=== PATIENT | female | born 1975 | race Caucasian/White ===

== ENCOUNTER 2023-02-09 12:03 | Emergency (ER) | payer OTHER, SELFPAY ==
[2023-02-09 12:08] VITALS: BP 163/99; PULSE 80; RESP 16; TEMP 36.7; O2SAT 96; BMI 23.1
--- NOTE | 2023-02-09 12:17 | XR_ITS ---
The [address] [address] Patient Name: SHAMAR MINOR MRN: [id number] date: 1975 Sex: F Assigned Patient Location: ER Current Patient Location: ED.MAIN Accession/Order Number: [id number] Exam Date: 02/09/2023 12:25 Report Date: 02/09/2023 12:47 At the request of: DEV DOLL Procedure: XR hand RT 2V PROCEDURE: XR wrist RT min 3V, XR hand RT 2V HISTORY: fall, right hand first digit and right wrist pain since falling yesterday COMPARISON: None. FINDINGS: BONES:2 tiny ossifications at the lateral margin of the first digit interphalangeal joint. Mild sclerosis and subchondral cysts along the radial articular surface of the lunate. SOFT TISSUES:No visible soft tissue swelling. EFFUSION:None visible. OTHER: Negative. IMPRESSION: 1. Acute cortical avulsion fractures versus remote injury involving the first digit interphalangeal joint. No prior studies for comparison. 2. 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 Electronically authenticated by: LESLI POWELL Date: 02/09/2023 12:47
--- NOTE | 2023-02-09 12:18 | XR_ITS ---
The [address] [address] Patient Name: SHAMAR MINOR MRN: [id number] date: 1975 Sex: F Assigned Patient Location: ER Current Patient Location: ED.MAIN Accession/Order Number: [id number] Exam Date: 02/09/2023 12:25 Report Date: 02/09/2023 12:47 At the request of: DEV DOLL Procedure: XR wrist RT min 3V PROCEDURE: XR wrist RT min 3V, XR hand RT 2V HISTORY: fall, right hand first digit and right wrist pain since falling yesterday COMPARISON: None. FINDINGS: BONES:2 tiny ossifications at the lateral margin of the first digit interphalangeal joint. Mild sclerosis and subchondral cysts along the radial articular surface of the lunate. SOFT TISSUES:No visible soft tissue swelling. EFFUSION:None visible. OTHER: Negative. IMPRESSION: 1. Acute cortical avulsion fractures versus remote injury involving the first digit interphalangeal joint. No prior studies for comparison. 2. 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 Electronically authenticated by: LESLI POWELL Date: 02/09/2023 12:47
--- NOTE | 2023-02-09 12:21 | ED_ITS ---
HPI - Extremity Injury (Upper) General Chief Complaint: Extremity Injury, Upper Stated Complaint: INJURED R HAND AT WORK Time Seen by Provider: 02/09/23 12:17 Source: patient Mode of arrival: walk-in History of Present Illness HPI narrative: patient states she was at work yesterday stumbled and fell on outstretched right wrist. She is right-handed dominant. She's not had previous fracture. She did not hear or feel a bone break. She does nnot have any pain in her elbow or shoulder. She does not have any other injury to the trunk torso or extremities. Problem focused examination as noted below Related Data Home Medications Medication Instructions Recorded Confirmed cyclobenzaprine 10 mg tablet 10 mg PO DAILY PRN muscle spasm 02/09/23 02/09/23 fluoxetine 20 mg capsule 20 mg PO DAILY 02/09/23 02/09/23 levothyroxine 75 mcg tablet 75 mcg PO DAILY 02/09/23 02/09/23 (Synthroid) Allergies Allergy/AdvReac Type Severity Reaction Status Date / Time Sulfa (Sulfonamide Allergy Severe Verified 02/09/23 12:11 Antibiotics) [facility] Medical History (Updated 02/09/23 @ 13:28 by Kleber Phillips MD) Exam Narrative Exam Narrative: awake alert pleasant she is signing the documents with her right hand. There is some bruising over the volar aspect of her wrist. There is no obvious deformity of the bony structures. On extremity examination neurovascular examination extremity is normal. Mild restriction of motion at the wrist. Some discomfort over the dorsum of the hand but most discomfort is in the distal wrist joint area itself. X-rays of been ordered and are pending. Constitutional Vital Signs - 24 hr 02/09/23 12:08 Temperature 98.0 F Pulse Rate [Monitor] 80 Respiratory Rate 16 Blood Pressure [Right Arm] 163/99 H Pulse Oximetry 96 Oxygen Delivery Method Room Air Course Vital Signs Vital signs: Vital Signs Temperature 98.0 F 02/09/23 12:08 Pulse Rate 80 02/09/23 12:08 Respiratory Rate 16 02/09/23 12:08 Blood Pressure 163/99 H 02/09/23 12:08 Pulse Oximetry 96 02/09/23 12:08 Oxygen Delivery Method Room Air 02/09/23 12:08 Temperature 98.0 F 02/09/23 12:08 Pulse Rate 80 02/09/23 12:08 Respiratory Rate 16 02/09/23 12:08 Blood Pressure 163/99 H 02/09/23 12:08 Pulse Oximetry 96 02/09/23 12:08 Oxygen Delivery Method Room Air 02/09/23 12:08 MDM - Extremity Injury (Upper) MDM Narrative Medical decision making narrative: issues x-rays suggest an old versus new fracture at the IP joint of her right thumb. I reexamined the patient she has full range of motion at that joint and no tenderness whatsoever with aggressive palpation and manipulation so I believe this is old. Discharge Plan Discharge Chief Complaint: Extremity Injury, Upper Clinical Impression: Other specified sprain of right wrist, initial encounter Patient Disposition: Home, Self-Care Time of Disposition Decision: 13:28 Prescriptions / Home Meds: No Action fluoxetine 20 mg capsule 20 mg PO DAILY levothyroxine [Synthroid] 75 mcg tablet 75 mcg PO DAILY cyclobenzaprine 10 mg tablet 10 mg PO DAILY PRN (Reason: muscle spasm) Additional Instructions: wears splint three or four days, ice for forty-eight hours/NSAIDs for discomfort Stand Alone Forms: Portal Instructions Referrals: NOLBERTO PERRY DO [Primary Care Provider] - 1 week
[2023-02-09 13:47] VITALS: BP 152/96; PULSE 72; RESP 18; O2SAT 98
== END 2023-02-09 13:49 | disposition home or self-care (01) ==
PROVIDERS: Emergency Provider Emergency Medicine Emergency Medical Services; PCP Family Medicine
DX: S63.501A Unspecified sprain of right wrist, initial encounter (principal); W01.10XA Fall on same level from slipping, tripping and stumbling with subsequent striking against unspecified object, initial encounter
CPT/HCPCS: 73110; 73120; 99283

== ENCOUNTER 2023-06-08 09:31 | Outpatient (OUT) | payer OTHER, SELFPAY ==
--- NOTE | 2023-06-08 09:39 | MM_ITS ---
Patient: SHAMAR MINOR Exam Date: 06/08/2023 : 1975 Gender:F Ordering : DR NOLBERTO BEAR M.D. Admission #: [id number] Family : Order #: [id number] CLICK HERE TO VIEW EXAM RADIOLOGY REPORT PROCEDURE: MM TOMOSYNTHESIS SCREENING BI COMPARISON: MG MAMM SCREEN 3D [place] CAD, 10/31/2020. MG MAMM SCREEN 3D [place] CAD, 11/23/2021. INDICATIONS: Screening Calculator Name NCI Breast Cancer Risk Assessment Tool 5 Year Breast Cancer Risk 1.10% Lifetime Breast Cancer Risk 9.90% Personal Breast Cancer No Personal Ovarian Cancer No Treatments Excision Interferon for year. Family Cancers Mother with skin cancer cancer at age 55; Uncle-maternal with liver cancer at age 65; Grandfather-maternal with lung cancer at age ~50; Uncle-maternal with unknown cancer at age 55. LOCATION: [facility] BREAST COMPOSITION: Scattered areas fibroglandular density. FINDINGS: DIAGNOSTIC CATEGORY 1--NEGATIVE. NO CHANGE FROM COMPARISON ASSESSMENT. Scattered benign-appearing nodules are present. Scattered benign-appearing calcifications are present. Scattered benign-appearing lymph nodes are present. RIGHT BREAST: No significant suspicious finding. LEFT BREAST: No significant suspicious finding. RECOMMENDATIONS: ROUTINE MAMMOGRAM AND CLINICAL EVALUATION IN 12 MONTHS. PLEASE NOTE: A NORMAL MAMMOGRAM DOES NOT EXCLUDE THE POSSIBILITY OF BREAST CANCER. A CLINICALLY SUSPICIOUS PALPABLE LUMP SHOULD BE BIOPSIED. Dictated by: Luis Armijo MD on 06/08/2023 at 13:21 Approved by: Luis Armijo MD on 06/08/2023 at 13:24
== END 2023-06-08 09:32 | disposition home or self-care (01) ==
LOC: MAMMO 09:31
PROVIDERS: PCP Internal Medicine; Visit Provider Internal Medicine
DX: Z12.31 Encounter for screening mammogram for malignant neoplasm of breast (principal); Z80.1 Family history of malignant neoplasm of trachea, bronchus and lung; Z80.8 Family history of malignant neoplasm of other organs or systems; Z80.9 Family history of malignant neoplasm, unspecified
CPT/HCPCS: 77063; 77067

== ENCOUNTER 2023-11-30 08:33 | Outpatient (OUT) | payer OTHER, SELFPAY ==
--- OUTSIDE RECORDS SUMMARY | 2023-11-30 08:48 | XMS_ITS | CCD ---
Author Organization [facility] Care Team Providers Care Glass Vial Bending Conveyor Feeder Name Role Phone Maximiliano Hernandez II Primary Care Provider [facility], DR KNIGHT Attending Unavailable MISC, DR KNIGHT Admitting Unavailable REQUEST, DR BOGGS LISTED Primary Care Unavaila ble REQUEST, DR BOGGS LISTED Primary Care Unavaila ble HERNANDEZ, DR ARVIZU Attending Unavailable HERNANDEZ, DR ARVIZU Consulting Unavailable CHEMA, DR ARVIZU Admitting Unavailable ZIEBER, DR LESLI Marina Consulting Unavailable CHAYO, DR Yulisa Morales Primary Care Unavailable MARICARMEN KENNEDY Attending Unavailable MARICARMEN KENNEDY Admitting Unavailable CAITIE, DR ANAM Carcamo Consulting Unavailable MARICARMEN KENNEDY Consulting Unavailable KOLCZUN, DR BHARDWAJ Attending Unavailable LM, DR BHARDWAJ Admitting Unavailable REQUEST, DR BOGGS LISTED Primary Care UnavailMaximiliano Rod II Primary Care Provider [phone] Maximiliano Hernandez II Primary Care Provider [phone] MAXIMILIANO HERNANDEZ II Primary Care Unavailable ANTON TARIQ Attending Unavailable BENTON AMATO Attending Unavailable MAXIMILIANO HERNANDEZ II Primary Care Unavailable BENTON AMATO Referring Unavailable MAXIMILIANO HERNANDEZ II Primary Care Unavailable MAXIMILIANO HERNANDEZ II Primary Care Unavailable BENTON AMATO Referring Unavailable MAXIMILIANO HERNANDEZ II Primary Care Unavailable BENTON AMATO Attending Unavailable Maximiliano Gonsales Primary Care Provider [phone] MIR STOUT Attending Unavailable MIR STOUT Attending Unavailable Maximiliano Hernandez MD Primary Care Provider [phone] MAUREEN CAMPOS Attending MAXIMILIANO Lazo Referring Unavailable MAXIMILIANO HERNANDEZ Primary Care Unavailable Allergies Allergy Classification Reported Allergen(s) Allergy Type Date of Onset Reaction(s) Facility (7 sources) Bee pollen; Translations: [BEE POLLEN] Drug Allergy 1 Swelling [facility] (7 sources) oxyCODONE; Translations: [OXYCODONE] Drug Allergy 2 Itching [facility] Work Phone: (8 sources) Sulfonamides (Antibiotic); Translations: [SULFA (SULFONAMIDE ANTIBIOTICS)] Drug Allergy 2 Hives [facility] (6 sources) Silver; Translations: [SILVER] Drug Allergy 1 Other: See Comments [facility] (1 source) Sulfonamides (Antibiotic) Drug allergy (disorder) 6 [facility] (1 source) Silver Drug Allergy 1 Other: See Comments [facility] (1 source) Sulfacetamide Drug Allergy 3 Rash [facility] Medications Current Medications Medication Drug Class(es) Dates Sig (Normalized) Sig (Original) cyclobenzaprine hydrochloride 5 mg oral tablet (7 sources) Muscle Relaxant Start: 03-02-2023 take 2 tablets by mouth three times daily as needed for muscle spasms, then take 1-2 tablets by mouth once as needed for muscle spasms cyclobenzaprine (Flexeril) 5 MG tablet Indications: Muscle spasm of back Take 2 tablets (10 mg) by mouth 3 (three) times a day as needed for muscle spasms. Take 1 to 2 tablets per dose 120 tablet 2 03/02/2023 Active cyclobenzaprine (FLEXERIL) 5 mg tablet Take 5 mg by mouth as needed. 0 Active Comment on above: Take 5 mg by mouth a s needed. [id number] 0.3 ml EPINEPHrine 1 mg/ml auto-injector (1 source) alpha-Adrenergic Agonist, beta-Adrenergic Agonist, Catecholamine EPINEPHrine (Epipen) 0.3 MG/0.3ML injection syringe Inject 1 Syringe as directed 1 (one) time. 0 Active FLUoxetine 20 mg oral capsule (7 sources) Serotonin Reuptake Inhibitor Start: 023 take 1 capsule by mouth in the morning FLUoxetine (PROzac) 20 MG capsule Indications: Major depressive disorder with single episode, in full remission (CMS/HCC) Take 1 capsule (20 mg) by mouth in the morning. 100 capsule 3 03/02/2023 Active Comment on above: Take 20 mg by mouth once daily. ibuprofen 600 mg oral tablet (1 source) Nonsteroidal Anti-inflammatory Drug take 1 tablet by mouth in the morning, then take 1 tablet by mouth in the evening, then take 1 tablet by mouth at bedtime ibuprofen 600 MG tablet Take 600 mg by mouth in the morning and 600 mg in the evening and 600 mg before bedtime. 0 Active levothyroxine sodium 0.075 mg oral tablet (7 sources) l-Thyroxine Start: 023 take 1 tablet by mouth before mealtime levothyroxine (Synthroid, Levoxyl) 75 MCG tablet Indications: Acquired hypothyroidism (CMS/HCC) Take 1 tablet (75 mcg) by mouth in the morning. Take before meals. 100 tablet 3 03/02/2023 Active Start: 04-09-2022 SYNTHROID 75 m cg tablet End: 04-19-2022 levothyroxine (SYNTHROID) 10 0 mcg tablet Take 75 mcg by mouth daily before breakfast. 0 04/19/2022 Discontinued Comment on above: Take 75 mcg by mouth daily before breakfast. Completed/Discontinued Medications Medication Drug Class(es) Dates Sig (Normalized) Sig (Original) amoxicillin 500 mg oral capsule (3 sources) Penicillin-class Antibacterial Start: 01-18-2022 amoxicillin (POLYMOX, AMOXIL) 500 mg capsule Indications: S/P right unicompartmental knee replacement Take 4 capsules 1 hour before procedure and 2 capsules 6 hours after procedure 6 capsule 1 01/18/2022 Active Comment on above: Take 4 capsules 1 ho ur before procedure and 2 capsules 6 hours after procedure aspirin 81 mg delayed release oral tablet (2 sources) Platelet Aggregation Inhibitor, Nonsteroidal Anti-inflammatory Drug Start: 09-21-2021 End: 12-28-2021 take 1 tablet by mouth twice daily aspirin, enteric coated (ECOTRIN LOW STRENGTH) 81 mg EC tablet Indications: blood clot prevention Take 1 tablet by mouth twice daily for 28 days. 56 tablet 0 09/21/2021 12/28/2021 Discontinued Comment on above: Take 1 tablet by paula twice daily for 28 days. Calcium (5 sources) Phosphate Binder, Calcium CALCIUM ORAL Take by mouth. 2 times a week. 0 Active Comment on above: Take by mouth. 2 mayco es a week. Calcium Carbonate (6 sources) calcium carbonat e (TUMS ORAL) Take by mouth. 0 Active Comment on above: Take by mouth. feusrjiwrnk-U5-uo aluronic acid 1,000 mg- 25 mcg-1.65 mg tab (5 sources) take 1 tablet by mouth once daily pdgskxmmvvs-P8-mkdoug onic acid 1,000 mg- 25 mcg-1.65 mg tab Take 1 tablet by mouth once daily. 0 Active Comment on above: Take 1 tablet by paula th once daily. MULTI-VITAMIN ORAL (6 sources) MULTI-VITAMIN OR AL Take by mouth. 0 Active Comment on above: Take by mouth. omeprazole 20 mg delayed release oral capsule (6 sources) Proton Pump Inhibitor Start: 12-19-2013 OMEPRAZOLE 20 mg capsule Take 20 mg by mouth as needed. 0 12/19/2013 Active Comment on above: Take 20 mg by mouth as needed. 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, unilateral] Onset: 1 07-27-2021 Chronic Melanomas of skin (6 sources) Malignant melanoma; Translations: [Malignant melanoma of skin, unspecified] Onset: 2 03-29-2012 Chronic Menopausal disorders (1 source) Menopausal syndrome; Translations: [Menopausal and female climacteric states] Onset: 3 02-07-2023 Chronic Mood disorders (1 source) Depressive disorder; Translations: [Depression] Onset: 3 02-07-2023 Chronic Osteoarthritis (17 sources) Degenerative joint disease involving multiple joints; Translations: [Secondary multiple arthritis] Onset: 1 04-02-2021 Chronic Other connective tissue disease (3 sources) Presence of right artificial knee joint; Translations: [PRESENCE RT ARTIFICIAL KNEE JOINT] Onset: 2 Chronic Other connective tissue disease (1 source) History of prosthetic unicompartmental arthroplasty of right knee; Translations: [Presence of right artificial knee joint] Onset: 2 10-14-2021 Chronic Other connective tissue disease (7 sources) Pain of bilateral hands; Translations: [Pain in right hand] Onset: 1 04-02-2021 Episodic Other gastrointestinal disorders (1 source) Other fecal abnormalities; Translations: [Other fecal abnormalities] Onset: 4 Episodic Other nervous system disorders (1 source) Chronic pain; Translations: [Other chronic pain] Onset: 3 02-07-2023 Chronic Other non-traumatic joint disorders (7 sources) Pain in right knee; Translations: [Pain in joint, lower leg] Onset: 1 04-02-2021 Episodic Residual codes; unclassified (1 source) Family history of malignant neoplasm of trachea, bronchus and lung; Translations: [FAM HX MALIG NEOPLSM TRACH BRON LNG] Onset: 2 Episodic Residual codes; unclassified (1 source) Family history of malignant neoplasm of other organs or systems; Translations: [FAM HX MALIG NEOPLASM OTH ORGN/SYS] Onset: 2 Episodic Residual codes; unclassified (1 source) Family history of malignant neoplasm, unspecified; Translations: [FAM HX MALIGNANT NEOPLASM UNS] Onset: 2 Episodic Retinal detachments; defects; vascular occlusion; and retinopathy (1 source) Nonexudative age-related macular degeneration; Translations: [Nonexudative age-related macular degeneration, bilateral, intermediate dry stage] Onset: 3 02-07-2023 Chronic Spondylosis; intervertebral disc disorders; other back problems (2 sources) Degeneration of cervical intervertebral disc; Translations: [Other cervical disc degeneration, unspecified cervical region] Onset: 3 02-07-2023 Chronic Thyroid disorders (7 sources) Hypothyroidism; Translations: [Hypothyroidism, unspecified] Onset: 2 03-29-2012 Chronic Unclassified (1 source) Colon Cancer Screening Onset: 4 Past or Other Problems Problem Classification Problem Date Documented Date Episodic/Chronic Immunizations and screening for infectious disease (5 sources) Anti-nuclear factor positive; Translations: [Other specified abnormal immunological findings in serum] Onset: 04-05-2021 04-05-2021 Episodic Joint disorders and dislocations; trauma-related (1 source) Tear of meniscus of knee; Translations: [Unspecified tear of unspecified meniscus, current injury, right knee, subsequent encounter] Onset: 02-07-2023 02-07-2023 Episodic Other bone disease and musculoskeletal deformities (1 source) Chondromalacia; Translations: [Chondromalacia, right knee] Onset: 02-07-2023 02-07-2023 Episodic Other connective tissue disease (6 sources) Swollen thumb; Translations: [Other specified soft tissue disorders] Onset: 04-02-2021 04-02-2021 Episodic Other connective tissue disease (1 source) Synovial cyst of popliteal space [Sidhu], right knee; Translations: [SYNOVIAL CYST POP SPACE RIGHT KNEE] Onset: 03-31-2021 Episodic Other infections; including parasitic (5 sources) Patient condition resolved; Translations: [Resolved utqm-[id number]-63 syndrome] Onset: 07-27-2021 07-27-2021 Episodic Other non-traumatic joint disorders (6 sources) Hip pain; Translations: [Pain in left hip] Onset: 04-02-2021 10-15-2021 Episodic Other non-traumatic joint disorders (6 sources) Swelling of knee joint; Translations: [Effusion, right knee] Onset: 04-02-2021 04-02-2021 Episodic Other non-traumatic joint disorders (4 sources) Effusion, right knee; Translations: [EFFUSION RIGHT KNEE] Onset: 03-20-2021 Episodic Other screening for suspected conditions (not mental disorders or infectious disease) (10 sources) Mammography abnormal; Translations: [Other abnormal and inconclusive findings on diagnostic imaging of breast] Onset: 11-25-2015 11-25-2015 Episodic Residual codes; unclassified (6 sources) FH: Gout; Translations: [Family history of other diseases of the musculoskeletal system and connective tissue] Onset: 04-02-2021 04-02-2021 Episodic Spondylosis; intervertebral disc disorders; other back problems (6 sources) Chronic low back pain; Translations: [Chronic bilateral low back pain without sciatica] Onset: 04-02-2021 04-02-2021 Episodic Results Test Name Value Interpretation Reference Range Facility [facility] 01-17-2023 [facility] Office Visit (LOORRM ) TIA FLANAGAN ([id number]) 1975 F Date Time Provider Department 01/17/23 8:15 AM BENTON AMATO During your visit today, we recorded the following information about you: Benton Amato II, MD 01/17/2023 12:26 PM Signed see dictated note Benton Amato II, MD Referring Provider: SELF [200] Allergies As of Date: 01/17/2023 Noted Allergy Reaction BEE POLLEN 07/06/2021 7 - Swelling OXYCODONE 09/21/2021 9 - Itching Comments: ok if used with benadryl norco ok SILVER 07/06/2021 14 - Other: See Comments Comments: Jorge. Redness in ears. SULFA DRUGS (SULFA (SULFONAMIDE A*03/29/2012 4 - Hives Date Reviewed: 01/17/2023 Reviewed by: Yandy Cage MA - Fully Assessed Reason for Visit: Established Patient [175] Follow Up [171] Knee Replacement [363] Primary Visit Diagnosis:Status post right unicompartmental knee replacement [Z96.651] Order(s):XR KNEE POST OP 3V AP/LAT/ RIGHT [[id number]] Order #: [id number] FUTURE Prescriptions as of 01/17/2023 - amoxicillin (AMOXIL) 500 mg capsule Take 4 capsules 1 hour before procedure and 2 capsules 6 hours after procedure - SYNTHROID 75 mcg tablet - CALCIUM ORAL Take by mouth. 2 times a week. - nrynfdmspyl-H4-ajefftah ic acid 1,000 mg- 25 mcg-1.65 mg tab Take 1 tablet by mouth once daily. - cyclobenzaprine (FLEXERIL) 5 mg tablet Take 5 mg by mouth as needed. - calcium carbonate (TUMS ORAL) Take by mouth. - OMEPRAZOLE 20 mg capsule Take 20 mg by mouth as needed. - FLUoxetine (PROZAC) 20 mg capsule Take 20 mg by mouth once daily. - MULTI-VITAMIN ORAL Take by mouth. Problem List As Of Date 01/17/2023 Noted Resolved Melanoma [C43.9] 03/29/2012 Hypothyroidism [E03.9] 03/29/2012 Abnormal mammogram of right breast [R92.8] 11/25/2015 Chronic bilateral low back pain without sciatic*04/02/2021 Pain in left hip [M25.552] 04/02/2021 Swelling of knee joint, right [M25.461] 04/02/2021 Swelling of thumb, left [M79.89] 04/02/2021 Secondary osteoarthritis of multiple sites [M15*04/02/2021 Chronic pain of both knees [M25.561, M25.562, G*04/02/2021 Bilateral hand pain [M79.641, M79.642] 04/02/2021 Family history of gout [Z82.69] 04/02/2021 ELIZABETH positive [R76.8] 04/05/2021 Primary osteoarthritis of right knee [M17.11] 07/27/2021 Resolved akme-MIGYR-35 syndrome [Z86.16] 07/27/2021 Solitary kidney, congenital [Q60.0] 07/27/2021 GERD (gastroesophageal reflux disease) [K21.9] 07/27/2021 S/P right unicompartmental knee replacement [Z9*10/14/2021 Encounter Status:Closed by BENTON AMATO II on 01/17/23 Normal [facility] XR KNEE 3V AP/LAT/MERCHANT R Ton 01-17-2023 XR KNEE 3V AP/LAT/MERCHANT RT * * *Final Report* * * DATE OF EXAM: Jan 17 2023 8:36AM LZX 5209 - XR KNEE 3V AP/LAT/MERCHANT RT / PROCEDURE REASON: Status post right unicompartmental knee replacement * * * * Physician Interpretation * * * * HISTORY (as given from clinical provider): Status post right unicompartmental knee replacement . Additional history provided by the performing technologist (if any): Post op follow up TECHNIQUE: XR KNEE 3V AP/LAT/MERCHANT RT COMPARISON: 10/18/2022 RESULT: Status post lateral unicondylar knee arthroplasty. Normal postoperative appearance. Relative valgus alignment with wide medial compartment measuring about 15 mm in width, similar to the prior study. Mild patellofemoral compartment osteoarthritis. No other significant abnormality. IMPRESSION: NO SIGNIFICANT CHANGE Certified Substance Abuse Counselor: DEVON Transcribe Date/Time: Jan 17 2023 9:48A Dictated by : KARLA PURI MD This examination was interpreted and the report reviewed and electronically signed by: KARLA PURI MD on Jan 17 2023 9:49AM EST [id number] Normal [facility] CNOVon 10-18-2022 CNOV Office Visit (LOORRM ) TIA FLANAGAN ([id number]) 1975 F Date Time Provider Department 10/18/22 9:45 AM BENTON AMATO During your visit today, we recorded the following information about you: Benton Amato II, MD 10/18/2022 12:17 PM Signed see dictated note Benton Amato II, MD Referring Provider: SELF [200] Allergies As of Date: 10/18/2022 Noted Allergy Reaction BEE POLLEN 07/06/2021 7 - Swelling OXYCODONE 09/21/2021 9 - Itching Comments: ok if used with benadryl norco ok SILVER 07/06/2021 14 - Other: See Comments Comments: Jorge. Redness in ears. SULFA DRUGS (SULFA (SULFONAMIDE A*03/29/2012 4 - Hives Date Reviewed: 10/18/2022 Reviewed by: Benton Amato MD - Fully Assessed Reason for Visit: Established Patient [175] Follow Up [171] Knee Replacement [363] Primary Visit Diagnosis:S/P right unicompartmental knee replacement [Z96.651] Order(s):XR KNEE POST OP 3V AP/LAT/MERCHANT RIGHT [[id number]] Order #: [id number] FUTURE HINGED KNEE BRACE [[id number]] Order #: [id number] Prescriptions as of 10/18/2022 - SYNTHROID 75 mcg tablet - amoxicillin (POLYMOX, AMOXIL) 500 mg capsule Take 4 capsules 1 hour before procedure and 2 capsules 6 hours after procedure - CALCIUM ORAL Take by mouth. 2 times a week. - iicerfftbxr-H3-gljucafs ic acid 1,000 mg- 25 mcg-1.65 mg tab Take 1 tablet by mouth once daily. - cyclobenzaprine (FLEXERIL) 5 mg tablet Take 5 mg by mouth as needed. - calcium carbonate (TUMS ORAL) Take by mouth. - OMEPRAZOLE 20 mg capsule Take 20 mg by mouth as needed. - FLUoxetine (PROZAC) 20 mg capsule Take 20 mg by mouth once daily. - MULTI-VITAMIN ORAL Take by mouth. Problem List As Of Date 10/18/2022 Noted Resolved Melanoma [C43.9] 03/29/2012 Hypothyroidism [E03.9] 03/29/2012 Abnormal mammogram of right breast [R92.8] 11/25/2015 Chronic bilateral low back pain without sciatic*04/02/2021 Pain in left hip [M25.552] 04/02/2021 Swelling of knee joint, right [M25.461] 04/02/2021 Swelling of thumb, left [M79.89] 04/02/2021 Secondary osteoarthritis of multiple sites [M15*04/02/2021 Chronic pain of both knees [M25.561, M25.562, G*04/02/2021 Bilateral hand pain [M79.641, M79.642] 04/02/2021 Family history of gout [Z82.69] 04/02/2021 ELIZABETH positive [R76.8] 04/05/2021 Primary osteoarthritis of right knee [M17.11] 07/27/2021 Resolved vsvv-VSOIV-58 syndrome [Z86.16] 07/27/2021 Solitary kidney, congenital [Q60.0] 07/27/2021 GERD (gastroesophageal reflux disease) [K21.9] 07/27/2021 S/P right unicompartmental knee replacement [Z9*10/14/2021 Encounter Status:Closed by BENTON AMATO II on 10/18/22 [facility] XR KNEE 3V AP/LAT/MERCHANT R Ton 10-18-2022 XR KNEE 3V AP/LAT/MERCHANT RT * * *Final Report* * * DATE OF EXAM: Oct 18 2022 9:49AM LZX 5209 - XR KNEE 3V AP/LAT/MERCHANT RT / PROCEDURE REASON: S/P right unicompartmental knee replacement * * * * Physician Interpretation * * * * EXAMINATION: XR KNEE 3V AP/LAT/MERCHANT RT PATIENT/TECHNOLOGIST PROVIDED HISTORY: rt knee pain post op, walking with limp CLINICAL INFORMATION ( PROVIDED BY ORDERING CLINICIAN) : S/P right unicompartmental knee replacement TECHNIQUE: XR KNEE 3V AP/LAT/MERCHANT RT Laterality: RIGHT Number of different views (projections): 3 M: XB_1 COMPARISON: 10/14/2021 RESULT: Lateral compartment unicondylar arthroplasty is again noted without periprosthetic lucency or discrete periprosthetic fracture. Interval development of subsidence of the tibial component measuring 5 to 6 mm on the lateral projection. There is also increased genu valgum. Remaining joint spaces are preserved. Small joint effusion. Slightly decreased soft tissue swelling about the right knee. IMPRESSION: Lateral compartment unicondylar arthroplasty of the right knee with interval development of subsidence of the tibial component and increased genu valgum. Certified Substance Abuse Counselor: DEVON Transcribe Date/Time: Oct 18 2022 11:05A Dictated by : ANA BALES MD This examination was interpreted and the report reviewed and electronically signed by: ANA BALES MD on Oct 18 2022 11:10AM EST [id number] Normal [facility] CNOVon 04-19-2022 CNOV Office Visit (LOORRM ) TIA FLANAGAN ([id number]) 1975 F Date Time Provider Department 04/19/22 8:45 AM ANTON TARIQORREdilson During your visit today, we recorded the following information about you: Anton Tariq PA-C 04/19/2022 8:58 AM Signed This document has been created with the use of voice recognition technology. It may contain inaccuracies such as misspellings, inaccurate syntax or word sense that escaped review. Chief complaint: Recheck of right knee Right partial lateral isabell 09/21/2021 (7 months) HISTORY: Tia is a 46 year old female. Patient comes in today for follow up of her right knee. She reports that overall she is doing well. Just gets achiness and soreness intermittently if she sits for any length of time. She is up and down at work all the time which helps but she gets achy by the end of the day. Will take occasional ibuprofen.. She states pain is well controlled with ibuprofen. She reports that she was exercising at the pool regularly but once the warm weather hit she stopped going. She does sit in a hot tub on occasion to help loosen up the knee. Pain level 0-4/10. No other musculoskeletal complaints PAST MEDICAL HISTORY Diagnosis Date Hypothyroidism Melanoma (HCC) [id number] PAST SURGICAL HISTORY Procedure Laterality Date ARTHROSCOPY KNEE DIAGNOSTIC W/WO SYNOVIAL BX SPX Right COLONOSCOPY GEN ANES EXTENSIVE LEG SURGERY Right Melanoma removed from right leg and lymph nodes TOTAL ABDOM HYSTERECTOMY 2019 Medications reviewed. ALLERGIES Allergen Reactions Bee Pollen Swelling Oxycodone Itching ok if used with benadryl norco ok Silver Other: See Comments Jorge. Redness in ears. Sulfa Drugs [Sulfa * Hives Social History Tobacco Use Smoking status: Former Types: Cigarettes Quit date: 2016 Years since quittin.7 Smokeless tobacco: Never Tobacco comments: .5 ppd since age 14 Substance Use Topics Alcohol use: Not Currently Drug use: No EXAMINATION: GENERAL: Appears healthy, well-nourished, no deformities. ORIENTATION: Alert and oriented to person place and time HABITUS: Normal GAIT: Ambulating with a normal gait On physical exam of the right knee today, Appearance: No warmth or redness, wound is healing satisfactorily with no sign of infection. Calf is soft and nontender. Negative Homans. Tenderness: None Swelling: No swelling of the knee itself, no swelling distally Range of motion: 0-135 degrees easily, with just tightness at extremes Still has fairly significant quadriceps deconditioning on the right compared to the left. Can arise from a chair without using her arms. RADIOGRAPHS: None needed today IMPRESSION: Encounter Diagnosis ICD-10-CM 1. 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 Tolerating her activities fairly well. However she still has a great deal of deconditioning. We discussed appropriate strengthening exercises and handout was given. She will continue these on a regular basis. Limitations were discussed. Discussed kneeling. Follow-up in September for annual recheck. Anton Tariq PA-C April 19, 2022 8:34 AM Anton Tariq PA-C 04/19/2022 8:51 AM Signed Exercises to be done twice a day: -Straight leg raises: Lay on your back and left your leg while keeping your knee straight. Do 3 sets of 10 -Chair squats: Sit with your feet shoulder width apart and arise from the chair pushing off only as much as you need to to avoid pain. Do 3 sets of 10 - Slow march balance exercises: Stand and bend your knee and lift 1 leg in a marching motion and hold for 5 to 10 seconds, holding on only as much as you need to to keep balance. Switch back and forth between legs 20 times. Referring Provider: SELF [200] Allergies As of Date: 04/19/2022 Noted Allergy Reaction BEE POLLEN 07/06/2021 7 - Swelling OXYCODONE 09/21/2021 9 - Itching Comments: ok if used with benadryl norco ok SILVER 07/06/2021 14 - Other: See Comments Comments: Jorge. Redness in ears. SULFA DRUGS (SULFA (SULFONAMIDE A*03/29/2012 4 - Hives Date Reviewed: 04/19/2022 Reviewed by: Connie Lim MA - Fully Assessed Reason for Visit: Follow Up [171] Primary Visit Diagnosis:S/P right unicompartmental knee replacement [Z96.651] Prescriptions as of 04/19/2022 - SYNTHROID 75 mcg tablet - amoxicillin (POLYMOX, AMOXIL) 500 mg capsule Take 4 capsules 1 hour before procedure and 2 capsules 6 hours after procedure - CALCIUM ORAL Take by mouth. 2 times a week. - qtslrggwdny-H8-fcreonfb ic acid 1,000 mg- 25 mcg-1.65 mg tab Take 1 tablet by mouth once daily. - cyclobenzaprine (FLEXERIL) 5 mg tablet Take 5 mg by mouth as needed. - calcium carbonate (TUMS ORAL) Take by mouth. - OMEPRAZOLE 20 mg capsule Take 20 mg by mouth as needed. - FLUoxetine (PROZAC) 20 mg capsule Take 20 mg by mouth once da (more content not included)... 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 Admission #: [id number] Family : Order #: [id number] CLICK HERE TO VIEW EXAM RADIOLOGY REPORT PROCEDURE: MAMMOGRAM SCREENING 3D BILATERAL CAD COMPARISON: MG MAMM SCREEN 3D RITCHIE CAD, 10/31/2020. MG MAMM SCREEN RITCHIE W CAD, 08/21/2019. INDICATIONS: Screening mammography Calculator Name NCI Breast Cancer Risk Assessment Tool 5 Year Breast Cancer Risk 1.00% Lifetime Breast Cancer Risk 10.20% Personal Breast Cancer No Personal Ovarian Cancer No Treatments Excision Interferon for year. Family Cancers Mother with skin cancer cancer at age 55; Uncle-maternal with liver cancer at age 65; Grandfather-maternal with lung cancer at age 50; Uncle-maternal with unknown cancer at age 55. LOCATION: [facility] BREAST COMPOSITION: Scattered areas fibroglandular density. FINDINGS: DIAGNOSTIC CATEGORY 1--NEGATIVE. RIGHT BREAST: No significant suspicious finding. No significant change has occurred. LEFT BREAST: No significant suspicious finding. No significant change has occurred. RECOMMENDATIONS: ROUTINE MAMMOGRAM AND CLINICAL EVALUATION IN 12 MONTHS. PLEASE NOTE: A NORMAL MAMMOGRAM DOES NOT EXCLUDE THE POSSIBILITY OF BREAST CANCER. A CLINICALLY SUSPICIOUS PALPABLE LUMP SHOULD BE BIOPSIED. Dictated by: Lesli Baker M.D. on 11/23/2021 at 13:29 Approved by: Lesli Baker M.D. on 11/23/2021 at 13:34 Normal [facility] ANES POSTPROC EVALon 022 ANES POSTPROC EVAL HNO ID: [id number] Author: Monica Keller MD Service: Anesthesiology Author Type: Physician Type: Anesthesia Postprocedure Evaluation Filed: 09/21/2021 12:56 PM Note Text: POST ANESTHESIA EVALUATION NOTE : 1975 Procedure Summary Date: 09/21/21 Room / Location: OR03 / AV OR Anesthesia Start: 949 Anesthesia Stop: 1218 Procedure: ARTHROPLASTY REPLACE JOINT TOTAL KNEE UNI (Right Knee) Diagnosis: Primary osteoarthritis of right knee Surgeons: Benton Amato MD Responsible Provider: Monica Keller MD Anesthesia Type: spinal, regional ASA Status: 2 Anesthesia Type: spinal, regional Last Vitals Vitals Value Taken Time BP 114/85 09/21/21 1250 Temp 36.6 ?C (97.8 ?F) 09/21/21 1220 Pulse 67 09/21/21 1255 Resp 14 09/21/21 1255 SpO2 96 % 09/21/21 1255 Vitals shown include unvalidated device data. Post Anesthesia Patient Status Patient Evaluation: PACU. PACU/ICU Patient Condition: stable. Anticipated Disposition: phase 2 then home. Neurological Status: aware and responsive. Pulmonary Status: breathing comfortably on room air Airway Control: returned to baseline unsupported. Cardiovascular Status: stable. Pain Management: clinically adequate - multimodal analgesia pain management approach Postoperative Hydration: acceptable. Intraoperative Events: no significant anesthesia events Recommendation: continue current plan of care. Anesthesia Observations No Documentation SIGNATURE: Monica Keller MD PATIENT NAME: Tia Flanagan DATE: September 21, 2021 TIME: 12:56 PM CSN: [id number] [facility] ANES PRE-OPon 09-21-2021 ANES PRE-OP HNO ID: [id number] Author: Monica Keller MD Service: Anesthesiology Author Type: Physician Type: Anesthesia Preprocedure Evaluation Filed: 09/21/2021 9:26 AM Note Text: ANESTHESIOLOGY DAY OF SURGERY NOTE : 1975 Procedure Information Date/Time: 09/21/21934 Procedure: ARTHROPLASTY REPLACE JOINT TOTAL KNEE UNI (Right Knee) Location: AV OR03 / AV OR Surgeons: Benton Amato MD Estimated body mass index is 24.86 kg/m? as calculated from the following: Height as of this encounter: 167.6 cm (5' 6 ). Weight as of this encounter: 69.9 kg (154 lb). 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 Mallampati: II. TM distance: >3 FB. Neck ROM: full ROM without neurological symptoms. Mouth opening: adequate. Short neck: no. Thick neck: no DENTAL Normal dental observations. Dental findings: teeth intact. II - ANESTHESIA PLAN ASA Score: 2 Anesthetic Plan: spinal and regional Anesthetic plan additional comments: (pre op adductor canal block) + MAC Sedation. NPO Status: adequate Monitoring plan: Standard ASA. Postoperative analgesic plan: parenteral or oral opioids, multimodal analgesia and peripheral nerve block. Anesthetic Risks, Benefits, Alternatives, Personnel Discussed. Consent obtained from: patient.Patient / Surrogate agrees to blood products: yes DNR status not reviewed with patient and/or family prior to surgery. Significant changes in the patient condition since the History and Physical, not otherwise documented in primary service progress note: no. Potential Anesthesia issues that may suggest increased risk of complications or contraindication to planned procedure: none. Vitals Value Taken Time BP 133/98 09/21/218 Pulse 84 09/21/21757 Resp 16 09/21/21757 Temp 36.4 ?C (97.6 ?F) 09/21/21757 SpO2 98 % 09/21/21757 Facility-Administered Medications as of 09/21/2021 Medication Dose Route Frequency - [COMPLETED] acetaminophen 1,000 mg tab(s) (TYLENOL) 1,000 mg ORAL Pre-Op Once - [COMPLETED] meloxicam 7.5 mg tab(s) (MOBIC) 7.5 mg ORAL Pre-Op Once - lidocaine 10 mg/mL (1 %) 1-2 mg injection (XYLOCAINE) 0.1-0.2 mL INTRADERMAL PRN - lactated ringers iv infusion 5-30 mL/hr INTRAVENOUS CONTINUOUS - tranexamic acid iv piggyback 1000 mg in NaCl 0.7% 100 mL (CYKLOKAPRON) 1,000 mg INTRAVENOUS Pre-Op Once - tranexamic acid iv piggyback 1000 mg in NaCl 0.7% 100 mL (CYKLOKAPRON) 1,000 mg INTRAVENOUS ONCE - ceFAZolin iv piggyback 2 g in D5W (iso-osmotic) 100 mL (ANCEF) 2 g INTRAVENOUS Pre-Op Once - vancomycin iv piggyback 1 g in D5W 200 mL (VANCOCIN) 1 g INTRAVENOUS Pre-Op Once - [COMPLETED] promethazine 12.5 mg tab(s) (PHENERGAN) 12.5 mg ORAL Pre-Op Once Outpatient Medications as of 09/21/2021 Medication Sig - cyclobenzaprine (FLEXERIL) 5 mg tablet Take 5 mg by mouth as needed. - levothyroxine (SYNTHROID) 100 mcg tablet Take 75 mcg by mouth daily before breakfast. - FLUoxetine (PROZAC) 20 mg capsule Take 20 mg by mouth once daily. - jffnihvgvtb-T7-mnechbxk ic acid 1,000 mg- 25 mcg-1.65 mg tab Take 1 tablet by mouth once daily. - calcium carbonate (TUMS ORAL) Take by mouth. - OMEPRAZOLE 20 mg capsule Take 20 mg by mouth as needed. - MULTI-VITAMIN ORAL Take by mouth. I have interviewed and examined the patient. I have reviewed the medical record and/or the pre-anesthesia evaluation, pertinent labs, and test results. This contains updated information obtained within 48 hours of Surgery/Procedure. SIGNATURE: Monica Keller MD PATIENT NAME: Tia Flanagan DATE: September 21, 2021 TIME: 9:25 AM CSN: [id number] Normal [facility] HISTORY PHYSICALon 2 HISTORY PHYSICAL HNO ID: [id number] Author: Liyah Ruiz PA-C Service: Anesthesiology Author Type: Physician Respiratory Therapy Director Type: HANDP Filed: 09/21/2021 8:19 AM Note Text: Preoperative HISTORY AND PHYSICAL EXAM SERVICE DATE: 09/21/2021 SERVICE TIME: 8:09 AM Subjective: CC: right knee pain HPI: Patient is a 46 year old female presenting to pre-anesthesia consultation. Patient has been experiencing right knee pain since 2014. She had a knee scope in 2016 and underwent cortisone injections and physical therapy with no relief. She wears a knee brace at work which helps and says that ibuprofen can help with the pain as well. She has been recommended for a right uni knee arthroplasty. PAST MEDICAL HISTORY Diagnosis Date - Hypothyroidism - Melanoma (HCC) T1N1M0 PAST SURGICAL HISTORY Procedure Laterality Date - COLONOSCOPY GEN ANES - DIAGNOSTIC ARTHROSCOPY KNEE Right - EXTENSIVE LEG SURGERY Right Melanoma removed from right leg and lymph nodes - TOTAL ABDOM HYSTERECTOMY 2019 FAMILY HISTORY Problem Relation Age of Onset - Cancer Mother - None Father Social History Tobacco Use - Smoking status: Former Smoker Types: Cigarettes Quit date: 2015 Years since quittin.1 - Smokeless tobacco: Never Used - Tobacco comment: .5 ppd since age 14 Substance Use Topics - Alcohol use: Not Currently - Drug use: No No current facility-administered medications on file prior to encounter. Current Outpatient Medications on File Prior to Encounter Medication Sig - cyclobenzaprine (FLEXERIL) 5 mg tablet Take 5 mg by mouth as needed. - levothyroxine (SYNTHROID) 100 mcg tablet Take 75 mcg by mouth daily before breakfast. - FLUoxetine (PROZAC) 20 mg capsule Take 20 mg by mouth once daily. - mioktjnbdns-E2-uuptvslc ic acid 1,000 mg- 25 mcg-1.65 mg tab Take 1 tablet by mouth once daily. - calcium carbonate (TUMS ORAL) Take by mouth. - OMEPRAZOLE 20 mg capsule Take 20 mg by mouth as needed. - MULTI-VITAMIN ORAL Take by mouth. ALLERGIES Allergen Reactions - Bee Pollen Swelling - Silver Other: See Comments Jorge. Redness in ears. - Sulfa Drugs [Sulfa * Hives REVIEW OF SYSTEMS GENERAL: No weight loss, malaise or fevers NEURO: No history of headaches, syncope, paralysis, seizures or tremors RESPIRATORY: Negative for cough, hemoptysis, wheezing, COPD, dyspnea or shortness of breath, Hx of COVID (07/2021) CARDIOVASCULAR: Negative for chest pain, leg swelling, hypertension, CHF or palpitations GI: No nausea, vomiting, or diarrhea and Positive for heart burn take omeprazole PRN : No history of dysuria, frequency or incontinence, Positive for hx of one kidney ENDOCRINE: Negative for cold or heat intolerance, polyuria, polydipsia, goiter, Positive for hypothryoidism, takes synthroid HEMATOLOGY/LYMPHOLOGY: Hx of Melanoma, interferon injections for one year. Negative for prolonged bleeding, bruising easily or swollen nodes SKIN: Positive for small burning rash underneath left breast Objective BP 133/98 Pulse 84 Temp (Src) 97.6 (Temporal Artery) Resp 16 Ht 5' 6 (1.68m) Wt 154 lb (69.9kg) SpO2 98% LMP 05/08/2018 BMI 24.87 kg/(m2). O2 Therapy: Room Air PHYSICAL EXAM: The remainder of the physical exam is noncontributory. GENERAL: Alert and oriented SKIN: Normal color, Small red petechiae type rash under left breast, no itching. Burned with the CHG wipes prior to procedure. LUNGS: Lungs clear to auscultation, Good diaphragmatic excursion CARDIAC: Normal S1 and S2; no rubs, murmurs, or gallops, RRR NEUROLOGICAL: Normal cognition and motor skills. Diagnostic tests reviewed for today's visit: Lab Value Units Date High Low HB 13.8 g/dL 09/15/2021 15.5 11.5 HCT 41.6 % 09/15/2021 46.0 36.0 WBC 4.78 k/uL 09/15/2021 11.00 3.70 PLT 271 k/uL 09/15/2021 400 150 NA 140 mmol/L 09/15/2021 144 136 K 3.7 mmol/L 09/15/2021 5.1 3.7 GLUC 79 mg/dL 09/15/2021 99 74 BUN 17 mg/dL 09/15/2021 21 7 CREAT 0.58 mg/dL 09/15/2021 0.96 0.58 PTSEC No results within date range. INR No results within date range. APTT No results within date range. ALT 17 U/L 04/02/2021 38 7 AST 24 U/L 04/02/2021 35 13 TBILI 0.4 mg/dL 04/02/2021 1.3 0.2 TSH No results within date range. Lab Value Units Date High Low HCGQT No results within date range. UHCG No results within date range. HCG, BODY* No results within date range. Lab Value Units Date High Low ABORHD O POSI* no uni* 07/27/2021 ABSCREEN NEG no uni* 07/27/2021 Hemoglobin A1C (%) Date Value 09/15/2021 5.0 07/01/2021 5.3 Most recent EK07/06/21 NORMAL SINUS RHYTHM POSSIBLE LEFT ATRIAL ENLARGEMENT LOW VOLTAGE QRS, CONSIDER PULMONARY DISEASE, PERICARDIAL EFFUSION, OR NORMAL VARIANT BORDERLINE ECG Airway: METS: Housework, stairs, unloads trucks Do moderate work around the house such as vacuuming, sweeping floors, or carrying in groceries (3.50 METs) Climb a flight of stairs or walk up a hil (more content not included)... 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 PROCEDURE: RIGHT PARTIAL KNEE REPLACEMENT- LATERAL ISABELL Procedure(s) (LRB): ARTHROPLASTY REPLACE JOINT TOTAL KNEE UNI (Right) Anesthesia: Spinal Preop Diagnosis: Pre-Op Diagnosis Codes: * Primary osteoarthritis of right knee [M17.11] Postop Diagnosis: Same as Pre-Op Diagnosis Codes: * Primary osteoarthritis of right knee [M17.11] BMI: Estimated body mass index is 24.86 kg/m? as calculated from the following: Height as of this encounter: 167.6 cm (5' 6 ). Weight as of this encounter: 69.9 kg (154 lb). INDICATIONS: This is a 46 year old year old female with osteoarthritis of the right knee. She was having severe pain in the outside (lateral) aspect of the right knee. Nonoperative management with anti-inflammatory and analgesic medication, cortisone and lubricant injections, activity modification, use of ambulatory aides and physical therapy has been exhausted. The pain has started to interfere with activities of daily living. The decision was made to proceed with a lateral partial knee arthroplasty. Risks, benefits, and alternatives were discussed. She expressed understanding and consented to the procedure as outlined above. The patient was seen by [facility] Internal Medicine for pre-operative optimization. Ana Paula-operative blood management and the potential for blood transfusion were discussed with risks and options clearly outlined. The patient has consented to the use of banked allogenic blood if medically necessary. IMPLANTS: [employer] Partial Knee System (Lateral Isabell) SIZE TYPE Femur MEDIUM [place] Tibia/Polyethylene D6 Isabell Fixed Bearing OPERATIVE FINDINGS: There was bare bone present throughout the weightbearing portion of the lateral femoral condyle and lateral tibial plateau.The ACL was intact. The patellofemoral compartment showed minimal arthritic changes as did the medial compartment. PROCEDURE:The patient was identified and brought into the Operating Room by the anesthesia and nursing team. Anesthesia was successfully performed. Adductor canal block was performed.The patient was then positioned supine on the operating room table. Intravenous antibiotic prophylaxis dosing was confirmed. The right lower extremity was then prepped and draped in the usual sterile fashion with Chloraprep scrub. A surgical time-out was performed immediately preceding the incision with all personnel in the operating room; the patient identity was again confirmed, the surgical site and extremity were identified and confirmed, X-rays were reviewed, and availability of the appropriate surgical equipment was established. The limb was exsanguinated. Tourniquet was insufflated. The knee was approached then with a 3 inch 4 fingerbreadth longitudinal midline incision. Dissection was carried down and a lateral parapatellar incision was made. Dissection was carried onto the lateral compartment of the knee. The remains of the lateral meniscus were removed. We then released the anterolateral capsule from the midline to the anterolateral corner. We then flexed the knee to 90 degrees. We removed osteophytes from the medial femoral condyle medially and intercondylarly. We then osteotomized the proximal lateral tibial plateau at a 90-degree angle to the long axis of the tibia. We made a cut, so we removed approximately 2 mm of bone anteriorly and then 1 mm bone posteriorly and just beneath the eburnated bone. We fit this with a size D tibial tray. We measured our flexion gap at 6. We then flexed the knee to 90 degrees and we put in our femoral cutting guide and it allowed us to drill 2 drill holes in the middle third of the lateral femoral condyle. We removed this and then put in the posterior cutter, which removed a small amount of bone off the posterior aspect of the lateral femoral condyle and allowed us then to expose further the lateral posterior compartment and removed the remains of the lateral meniscus. The #0 spigot was put into place for a MEDIUM [place] femoral component and we reamed the distal femur to the MEDIUM [place] femoral component. The trial [place] femoral component was then inserted and we measured our flexion gap at 6 and our extension gap at 3. A 2 spigot was then inserted and additional 2 mm was removed from the distal femur equalizing the flexion-extension gap at 6. We then removed osteophy (more content not included)... Normal [facility] THERAPY NT 09-21-2021 THERAPY NT HNO ID: [id number] Author: Maureen Smith, PT Service: Physical Therapy Author Type: Physical Therapist Type: Therapy (PT/OT/Speech/Resp) Filed: 09/21/2021 4:09 PM Note Text: Physical Therapy Evaluation SERVICE DATE: 09/21/2021 SERVICE TIME: 1509 to 1554 ROOM: AV Surgery (AV SURGERY) Recommended Discharge Disposition: Outpatient Physical Therapy Recommended Discharge Equipment: No equipment needs anticipated PT 6 Clicks Score: 22 Instructed pt to ambulate at home every hour when awake. Pt is ok for DC home today with OP PT from PT standpoint, when cleared by medical/ORTHO. Precautions/Activity Restrictions: Total Knee Replacement;Weight Bearing Restrictions Extremity With Weight Bearing Restricted: Right Lower Extremity Right Lower Extremity Weight Bearing Status: WBAT Current Hospital Course: S/P R UCKR 09/21 (Lm) Reason for Hospital Admission: s/p R UCKR Response to Therapy Interventions: Good participation in activities Continue skilled needs due to: Functional mobility/skill impairments Physical Therapy Problem List: Decreased Range Of Motion;Decreased Strength;Functional Mobility Impairment;Balance Impaired Treatment Interventions: Education;Joint Mobility;Strengthening; Functional Mobility Training Home Environment Patient Lives With: Spouse 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 (Spouse works for [employer], mom will be staying tonight) Entry To Home: Stairs;Without Rail (vs 4 steps with HR on front but didnt shovel) Number Of Stairs Into Home: 2 (2 steps without HR onto landing and then 1 small 1 into house) Number Of Stairs To Bed/Bath: 1st floor bed and bath Tub/Shower Type: tub/shower- no DME Laundry: basement-niece will come over to complete Equipment Owned: Standard Walker;Cane;Crutch(es) Prior Functional Level: Within Functional Limits Prior Functional Level Comments: IND ADLs and amb without AD, + drives, works at [employer] Patient Report: Pt in bed My stomach hurts more than anything, maybe it's gas pains? CURRENT FUNCTIONAL STATUS: Most recent performance Current Functional Mobility Assist Level Additional Information Rolling Supine to Sit Minimal Assistance (Instructed pt on use of sheet OOB to R. Pt having difficulty sitting upright d/t sharp abdominal pain) Sit to Supine Stand By Assistance Scooting Sit to Stand Stand By Assistance Stand to Sit Stand By Assistance Bed to Chair Toilet/Commode Stand By Assistance Gait Stand By Assistance (initially CGA, progressed to SBA) Gait Device: Standard Walker Gait Distance (feet): 40X1, 150X1 Stairs Contact Guard Assistance (MIN/MOD A 1st time up, much steadier 2nd set of 4 with only GCA) Stairs Device: Rail;Cane Number of Stairs: 8 Curb Step Car Transfer Blank castellano indicate activity not attempted Gait Deviations Right Lower Extremity: Step length decreased;Stance time decreased;Weight bearing decreased Range of Motion: WFL Except (R knee AA flexion ~75 deg) Strength: WFL (R knee atleast 3/5) -HLM: 7: Walk 25 feet or more Learning/Educational Needs: Discharge Plan;Functional Activities/Mobility;Galilea n of Care;Rehabilitation Techniques and Procedures;PT In-Hospital Exercise Program Goals for Plan of Care: Patient /Caregiver Goals: Go Home Goals: Patient will demonstrate progress with functional mobility to allow safe discharge to home with available support and/or physical assistance. Rehab Potential: Good Patient will be discontinued from Physical Therapy when no further skilled needs are identified in this setting. PLAN: PT Frequency: Discontinue therapy services Reasons Therapy Services Discontinued: Goals met Plan of Care developed with: Patient;Family TREATMENT INTERVENTIONS: Therapy Diagnosis: Reduced mobility-other Interventions Provided: Evaluation;Therapeutic Exercise (51007);Gait Training (32648) $ Evaluation-Low (77309) Billed Units: 1 unit Therapeutic Exercise (66597) Treatment Minutes: 15 $ Therapeutic Exercise (72870) Billed Units: 1 unit Pt performed in supine position: AP, QS, GS x 10 B LE, pt instructed to do every hour while awake on their own. HS, SLR x10 B LE. Pt instructed on using a sheet to A with R HS. Calf stretch to R with 30 sec hold x 3 reps Pt performed in seated position: LAQ (also known as QBT) X10 B LE Reviewed seated knee extension stretch for pt to perform at home 3x/day. Instructed to sit with heel propped on another chair/table/etc out infront of patient, knee extended, and to hold as long as possible (~10-15 min if able) with ice pack on top of the knee. All exercises are to be completed at home 3x/day, 2 sets for 10, and both stretches to be completed 3x/day with holding times as listed above. Gait Training (24914) Treatment Minutes: 15 $ Gait Training (25654) Billed Units: 1 unit Training AND education provided in: Assistive device use, Bed mobility, Benefits of in-hospital mobility, Discharge pl (more content not included)... Normal [facility] XR KNEE 2V AP/LAT RTon 09-21 XR KNEE 2V AP/LAT RT * * *Final Report* * * DATE OF EXAM: Sep 21 2021 12:56PM X 5207 - XR KNEE 2V AP/LAT RT / PROCEDURE REASON: Post-operative / post-procedure assessment, asymptomatic * * * * Physician Interpretation * * * * History: Postoperative state FINDINGS/ IMPRESSION: Portable AP and crosstable lateral views of the right knee have been obtained and are compared to the prior study of 06/24/2021. Patient has had lateral hemiarthroplasty of the right knee, hardware intact and alignment satisfactory. Overlying soft tissue air noted consistent with the recent surgery. Please see detailed operative report. Certified Substance Abuse Counselor: DEVON Transcribe Date/Time: Sep 21 2021 2:00P Dictated by : MICHELLE WHITE MD This examination was interpreted and the report reviewed and electronically signed by: MICHELLE WHITE MD on Sep 21 2021 2:01PM EST [id number] Normal [facility] HISTORY PHYSICALon HISTORY PHYSICAL HNO ID: [id number] Author: Zofia Macias PA-C Service: ? Author Type: Physician Respiratory Therapy Director Type: HANDP Filed: 07/29/2021 10:29 AM Note Text: HISTORY AND PHYSICAL EXAMINATION SERVICE DATE: 07/27/2021 SERVICE TIME: 2:46 PM PRIMARY CARE PHYSICIAN: Maximiliano Gonsales DO REASON FOR VISIT: Tia Flanagan is a 46 year old female who is scheduled for LATERAL PARTIAL KNEE at the request of Dr. Benton Amato for consultation. My final recommendation will be communicated back to the requesting physician by way of shared medical record or letter. The patient has the following: ACTIVE PROBLEM LIST Melanoma (Hcc) Hypothyroidism Abnormal Mammogram of Right Breast Chronic Bilateral Low Back Pain Without Sciatica Pain in Right Hip Swelling of Knee Joint, Right Swelling of Thumb, Left Secondary Osteoarthritis of Multiple Sites Chronic Pain of Both Knees Bilateral Hand Pain Family History of Gout Elizabeth Positive Osteoarthritis of Right Knee Resolved [id number] Syndrome Solitary Kidney, Congenital Gerd (Gastroesophageal Reflux Disease) Subjective CHIEF COMPLAINT: Right Knee pain HPI: Patient is a 46 year old female presenting for pre-anesthesia consultation. Patient has been having right knee pain since 2014. She states that her knee will give out and pop out of place. She was told her knee is bone on bone. She had a scope in 2016, Cortisone injections, done PT without relief. The pain at worst is 8/10 and ibuprofen helps alleviate some pain along with wearing a brace when active. Recommended for the above surgery. PAST MEDICAL HISTORY Diagnosis Date - Hypothyroidism - Melanoma (HCC) [id number] PAST SURGICAL HISTORY Procedure Laterality Date - COLONOSCOPY GEN ANES - DIAGNOSTIC ARTHROSCOPY KNEE Right - EXTENSIVE LEG SURGERY Right Melanoma removed from right leg and lymph nodes - TOTAL ABDOM HYSTERECTOMY 2019 FAMILY HISTORY Problem Relation Age of Onset - Cancer Mother - None Father SOCIAL HISTORY: Social History Tobacco Use - Smoking status: Former Smoker Types: Cigarettes Quit date: 2015 Years since quittin.9 - Smokeless tobacco: Never Used - Tobacco comment: .5 ppd since age 14 Substance Use Topics - Alcohol use: Not Currently - Drug use: No MEDICATIONS: Prior to Admission medications as of 07/27/21 1418 Medication Sig Last Dose Taking fzgefiwojcq-V5-vziazutp ic acid 1,000 mg- 25 mcg-1.65 mg tab Take 1 tablet by mouth once daily. Taking Yes cyclobenzaprine (FLEXERIL) 5 mg tablet Take 5 mg by mouth as needed. Taking Yes calcium carbonate (TUMS ORAL) Take by mouth. Taking Yes OMEPRAZOLE 20 mg capsule Take 20 mg by mouth as needed. Taking Yes levothyroxine (SYNTHROID) 100 mcg tablet Take 75 mcg by mouth daily before breakfast. Taking Yes FLUoxetine (PROZAC) 20 mg capsule Take 20 mg by mouth once daily. Taking Yes MULTI-VITAMIN ORAL Take by mouth. Taking Yes No medication comments found. CURRENT ALLERGIES: ALLERGIES Allergen Reactions - Bee Pollen Swelling - Silver Other: See Comments Jorge. Redness in ears. - Sulfa Drugs [Sulfa * Hives COVID VACCINATION STATUS: Not vaccinated REVIEW OF SYSTEMS: PAIN ASSESSMENT: Pain Pain Level: 10 Pain Location: Knee-Right Description: Aching Duration Units: Years Frequency: Continuous Intervention/Comfort measure: Medication;Heat;Imagery ;Cold;Relaxation;Reposi tion General: No weight loss, malaise or fevers. Neuro: No history of TIA's, stroke, SILK SPOTTER tumor, impaired sensorium, hemiplegia, paraplegia or quadraplegia. No neurological symptoms or problems. Respiratory: +COVID 07/13/21- resolved No history of current cough or dyspnea, or pneumonia in the past 6 weeks. No history of respiratory/pulmonary symptoms or problems. Cardiovascular: No history of HTN requiring medication, no history of angina, CHF, LA, cardiac surgery or stents. Denies rest pain, gangrene or revascularization/amput ation for PVD. No history of cardiovascular symptoms or problems. GI: +GERD- tums as needed, No history of GI symptoms or problems. No history of esophageal varices, recent ascites, or ETOH greater than 2 drinks per day. : + one kidney No history of dysuria, frequency or incontinence,, stones or chronic kidney disease Endocrine: +hypothryoid- takes levothyroxine Hematology: No history of bleeding or clotting disorder. Pt is not taking anti-coagulation or platelet medications. No history of hematological symptoms or problems. 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 Musculoskeletal: See HPI Skin: Negative for lesions, rash and itching. Objective PHYSICAL EXAM: VITALS: BP 118/81 Pulse 98 Temp (Src) 97.8 (Oral) Resp 16 Ht 5' 6 (1.68m) Wt 154 lb (69.9kg) SpO2 99% LMP 05/08/2018 BMI 24.87 kg/(m2). General: Alert and oriented (more content not included)... Normal [facility] Type and SCR (30D)on 021 ABO/RH(D) Positive [facility] CNPNon 06-29-2021 CNPN Telephone (AVPANE) TIA FLANAGAN ([id number]) 1975 F Date Time Provider Department 06/29/21 BENTON AMATO During your visit today, we recorded the following information about you: Maureen Jay PA-C 06/29/2021 1:[address] Good [address] Amato, [facility]. Patient did not check in for appt. I called patient to see if they were planning on coming. When I spoke with patient she was not aware of today's PACC appointment. She also stated that she was not aware that surgery was even scheduled yet. She lives in [place] and will need PACC rescheduled. She would like phone call from Dr. Amato's office to discuss upcoming surgery date etc. Thanks, Maureen Jay PA-C [facility] Allergies As of Date: 06/29/2021 Noted Allergy Reaction SULFA DRUGS (SULFA (SULFONAMIDE A*03/29/2012 16 - Unknown Date Reviewed: 06/28/2021 Reviewed by: Benton Amato MD - Fully Assessed Reason for Visit: PreOp Call [[id number]] Cmt: No Show for PACC Prescriptions as of 08/25/2021 - hysuckcvssy-N9-mbkcgdyb ic acid 1,000 mg- 25 mcg-1.65 mg tab Take 1 tablet by mouth once daily. - cyclobenzaprine (FLEXERIL) 5 mg tablet Take 5 mg by mouth as needed. - calcium carbonate (TUMS ORAL) Take by mouth. - OMEPRAZOLE 20 mg capsule Take 20 mg by mouth as needed. - levothyroxine (SYNTHROID) 100 mcg tablet Take 75 mcg by mouth daily before breakfast. - FLUoxetine (PROZAC) 20 mg capsule Take 20 mg by mouth once daily. - MULTI-VITAMIN ORAL Take by mouth. Problem List As Of Date 06/29/2021 Noted Resolved Melanoma [C43.9] 03/29/2012 Hypothyroidism [E03.9] 03/29/2012 Abnormal mammogram of right breast [R92.8] 11/25/2015 Chronic bilateral low back pain without sciatic*04/02/2021 Pain in right hip [M25.551] 04/02/2021 Swelling of knee joint, right [M25.461] 04/02/2021 Swelling of thumb, left [M79.89] 04/02/2021 Secondary osteoarthritis of multiple sites [M15*04/02/2021 Chronic pain of both knees [M25.561, M25.562, G*04/02/2021 Bilateral hand pain [M79.641, M79.642] 04/02/2021 Family history of gout [Z82.69] 04/02/2021 ELIZABETH positive [R76.8] 04/05/2021 Encounter Status:Closed by MAUREEN JAY on 08/25/21 [facility] XR HAND GENERAL 3V PA/LAT/OB L BILATon 04-02-2021 [facility] XR KNEE GENERAL 4V AP BOTH/P A BOTH/LAT/MERC BILATon 04-02-2021 [facility] US IRVING DOP LEG RTon 03-20-20 US IRVING DOP LEG RT EXAMINATION: US IRVING DOP LEG RT HISTORY: Effusion of right knee joint COMPARISON: No relevant comparison available. TECHNIQUE: Grayscale, color and Doppler FINDINGS: Region: Right leg Thrombus: None Compressibility: Normal Flow: Normal Augmentation: Normal Other: Medial popliteal fossa fluid collection measuring 8.7 x 5.4 x 2.5 cm. IMPRESSION: No deep vein thrombus in the right leg 8.7 cm popliteal cyst *Exam performed in accordance with [facility] practice guidelines- Peripheral venous ultrasound, November 01, 2009. Electronically authenticated by: ANAM BLOOD Date: 2021-03-20 08:45 Normal [facility] Coding Summary.on 11-29-2019 Coding Summary. CODING DATE: 020 FINAL [facility] STATUS: Home (Routine DC) PAYOR: Self Pay APC DESCRIPTION 5521 Level 1 Imaging without Contrast 5023 Level 3 Type A ED Visits ADMIT DX: REASON FOR VISIT DX: R05 Cough R07.0 Pain in throat R52 Pain, unspecified FINAL DX: PRINCIPAL: J06.9 Acute upper respiratory infection, unspecified SECONDARY: B97.89 Other viral agents as the cause of diseases classified elsewhere E03.9 Hypothyroidism, unspecified F17.210 Nicotine dependence, cigarettes, uncomplicated F32.9 Major depressive disorder, single episode, unspecified PYMT PROC APC STAT DESCRIPTION DOCTOR NAME DATE NOTE: The code number assigned matches the documented diagnosis and / or procedure in the patient's chart. However, the narrative phrase printed from the coding software may appear abbreviated, or result in slightly different terminology. Revised Coded By: Brandi Correia Revised Date Saved: 11/29/2019 02:36 pm [facility] C Strep Screenon 11-28-2019 Strep Screen Microbiology PROCEDURE: Strep Screen Culture [R1] SOURCE: Swab BODY SITE: COLLECTED DATE/TIME: 11/26/2019 12:46 EDT RECEIVED DATE/TIME: 11/26/2019 13:24 EDT START DATE/TIME: 11/26/2019 13:24 EDT FREE TEXT SOURCE: Zach SAEZ, Nicola Serrano PA-C, Nicola FINAL REPORTS Final Report [] Verified Date/Time: 11/28/2019 08:30 EDT No Pathogenic Streptococcus Isolated Performing Locations R1: This test was performed at: [facility], [address] [place] [address], [id number] , , [facility] Comment on above: Performed By: #### 2 [id number] #### [facility] [address] [place] [address] ED Clinical Summaryon 2019 ED Clinical Summary [address] [address] ED Clinical Summary Person Information Name: TIA FLANAGAN [place] Age: 44 Years : 1975 Sex: Female Language: Czech PCP: MAXIMILIANO HERNANDEZ MD Marital Status: Visit Id: Visit Reason: Back pain; Malaise; Sore throat - Adult; SORE THROAT Speciality: Acuity: 3 Enc Type: Emergency Med Service: Emergency Arrival: 11/26/2019 12:01:15 Discharge: 11/26/2019 13:53:11 LOS: 000 01:52 Checkin: 11/26/2019 12:01:15 Checkout: 11/26/2019 13:53:11 Dispo Type: Home (Routine DC) EVENTS: Event Name Event Status Request Date/Time Start Date/Time Complete Date/Time Arrive Complete 11/26/2019 12:01:15 11/26/2019 12:01:15 11/26/2019 12:01:15 Document Home Meds Request 11/26/2019 12:01:15 Triage Complete 11/26/2019 12:01:15 11/26/2019 12:07:06 11/26/2019 12:07:06 Bed Assign Complete 11/26/2019 12:04:00 11/26/2019 12:04:00 11/26/2019 12:04:00 Dr Exam Complete 11/26/2019 12:04:00 11/26/2019 12:07:26 11/26/2019 12:07:26 RN Exam Complete 11/26/2019 12:04:00 11/26/2019 12:28:47 11/26/2019 12:28:47 Registration Complete 11/26/2019 12:05:57 11/26/2019 12:05:57 11/26/2019 12:05:57 Reg Complete Request 11/26/2019 12:05:57 Reg Bed Request Complete 11/26/2019 12:05:57 11/26/2019 12:05:57 11/26/2019 12:05:57 Registration Complete 11/26/2019 12:07:26 11/26/2019 12:15:35 11/26/2019 12:15:35 Pending Labs Complete 11/26/2019 12:12:39 11/26/2019 13:27:14 Lab Complete 11/26/2019 12:12:39 11/26/2019 13:27:14 Urine Collect Complete 11/26/2019 12:12:39 11/26/2019 13:27:14 X-Ray Complete 11/26/2019 12:12:39 11/26/2019 12:14:51 11/26/2019 12:33:31 Dr Exam Complete 11/26/2019 12:15:57 11/26/2019 12:15:57 11/26/2019 12:15:57 Registration Complete 11/26/2019 12:15:57 11/26/2019 12:16:30 11/26/2019 12:16:30 Wet Read Complete 11/26/2019 12:33:31 11/26/2019 12:35:39 11/26/2019 12:35:39 Pending Labs Inlab 11/26/2019 13:23:27 11/26/2019 13:23:27 Lab Inlab 11/26/2019 13:23:27 11/26/2019 13:23:27 Discharge Complete 11/26/2019 13:39:21 11/26/2019 13:54:17 11/26/2019 13:54:17 Transfer Complete 11/26/2019 13:54:17 11/26/2019 13:54:17 11/26/2019 13:54:17 ADDRESS: [address] [place] [address] [facility] DOC NOTES: MEDICAL INFORMATION: Prescriptions Given: Medications to Continue with No Changes Other Medications fluoxetine 20 Milligram By Mouth every day. levothyroxine 75 Microgram By Mouth every day. PATIENT EDUCATION INFORMATION: Instructions: Viral Infections Follow up: With: Address: When: MAXIMILIANO HERNANDEZ [address] [place] [address] Business (1) In 3 days 11/29/2019 DIAGNOSIS: Viral URI Normal [facility] ED Note-Physicianon 11-26-19 ED Note-Physician Basic Information Time Seen: KirNicola bose PA-C 11/26/2019 12:07 Chief Complaint SENT BY PCP FOR SORE THROAT THAT STARTED TUESDAY. ALSO REPORTS ABD/LOW BACK PAIN AND MUSCLE ACHES. DENIES FEVER. OCCASIONAL COUGH History of Present Illness This is a 44-year-old female who presents to the emergency department with chief complaint of a 3 day history of a sore throat, slight cough, generalized body aches, and abdominal wall tenderness that hurts when I move states that it feels like a muscle ache she denies any vomiting, denies recorded fever, denies difficulty swallowing, denies any sputum production. She denies shortness of breath with this, she denies history of asthma or other respiratory illness. She states she saw her PCP, was instructed to come to the emergency department to be checked for coronavirus . She denies other complaints at this time. Review of Systems A 10 point review of systems is negative except as noted above. Medical and Surgical History: Reviewed and noted Social history: Lives at home Tobacco: Denies Physical Exam Vitals & Measurements T: 36.7 ?C (Oral) HR: 94(Peripheral) RR: 16 BP: 121/85 SpO2: 97% General: Alert and oriented, No acute distress, Comfortable in bed. Eye: Pupils are equal, round and reactive to light, Extraocular movements are intact. HENT: Normocephalic. Neck: Supple, Non-tender, No jugular venous distention. Respiratory: Respirations are non-labored, Symmetrical chest wall expansion, No chest wall tenderness, no wheezing rhonchi rales or rubs noted.. Cardiovascular: Normal rate, Regular rhythm, Good pulses equal in all extremities. Gastrointestinal: Soft, Non-tender, Non-distended, Normal bowel sounds. Musculoskeletal: Normal range of motion, Normal strength. Neurologic: Alert, Oriented, Normal sensory, Normal motor function. Cognition and Speech: Oriented, Speech clear and coherent. Psychiatric: Cooperative, Appropriate mood & affect. Integumentary: Warm, Dry, [place] Medical Decision Making Patient appears well on examination and is not ill-appearing. The patient has stable vital signs without hypoxia. There is no respiratory difficulty on exam. The patient is safe for discharge home without further work-up to follow up with PCP. Signs and symptoms of worsening disease course, including chest pain, shortness of breath, and high fevers were discussed. They are encouraged to return to the ED if symptoms worsen or change. Appropriate healthcare PPE was used in evaluating this patient. The patient was placed in a mask. The healthcare provider was wearing mask, gloves, gown, eye protection and utilizing proper hand hygiene. All equipment was properly cleansed. Assessment/Plan Viral URI (J06.9: Acute upper respiratory infection, unspecified) Orders: Rapid Strep w/rfx Strep Screen Culture UA With Cult Reflex XR Chest Single View Disposition Plan Patient Discharge Condition Stable Discharge Disposition Discharge home Discharge Prescription List Prescriptions No active prescription medications Follow-up With When Contact Information MAXIMILIANO CHEMA In 3 days 11/29/2019 EDT [address] [place], [place] [address] Business (1) Additional Instructions: Patient Education Viral Infections Problem List/Past Medical History Ongoing Absent kidney Acute depression Hypothyroidism Smoker Historical Myeloma Procedure/Surgical History Abdominal hysterectomy. Medications Inpatient No active inpatient medications Home fluoxetine, 20 mg, Oral, Daily levothyroxine, 75 microgram, Oral, Daily Allergies sulfa drugs (Unknown) Social History Alcohol - Medium Risk, 11/26/2019 Current, Beer, Daily, 11/26/2019 Substance Abuse - Denies Substance Abuse, 11/26/2019 Tobacco - Medium Risk, 11/26/2019 Cigarettes, 11/26/2019 Lab Results UA Spec Desc: Clean Catch (11/26/19 12:46:00) UA Color: Yellow2 (11/26/19 12:46:00) UA Clarity: Clear2 (11/26/19 12:46:00) UA Spec Grav: 1.015 (11/26/19 12:46:00) UA pH: 5.5 (11/26/19 12:46:00) UA Protein: NEGATIVE1 (11/26/19 12:46:00) UA Glucose: NEGATIVE1 (11/26/19 12:46:00) UA Ketones: NEGATIVE1 (11/26/19 12:46:00) UA Bili: NEGATIVE1 (11/26/19 12:46:00) UA Blood: NEGATIVE1 (11/26/19 12:46:00) UA Nitrite: NEGATIVE1 (11/26/19 12:46:00) UA Urobilinogen: 0.2 (11/26/19 12:46:00) UA Leuk Est: NEGATIVE1 (11/26/19 12:46:00) UA RBC: 0-3 (11/26/19 12:46:00) UA Squam Epithelial: 0-2 (11/26/19 12:46:00) UA WBC: 0-5 (11/26/19 12:46:00) UA Amorph Xi: Present (11/26/19 12:46:00) UA Mucous: Trace2 (11/26/19 12:46:00) Rapid Strep: NEGATIVE1 (11/26/19 12:46:00) Diagnostic Results XR Chest Single View 11/26/19 12:35:47 NEGATIVE: No infiltrate, mass or other acute cardiopulmonary abnormality Read By: Mike Meyer DO 11/26/19 12:45:36 IMPRESSION: NO RADIOGRAPHIC EVIDENCE OF ACUTE INTRATHORACIC PROCESS. EXAM: Portable chest radiograph History: Cough Technique: Portable AP view of the chest. Comparison: None available Findings: The cardiomediastinal silhouette is within normal limits. No pneumothorax, pleural effusion, or consolidation. Bones of the thorax appear intact. Signed By: Mike Byrd DO [facility] Comment on above: Result Comment: Elec tronically Signed By: Nicola Serrano PA-C\.br\Date and Time Signed: 11/26/19 13:46 EDT\.br\Electronically Co-Signed By: Mike Meyer DO\.br\Date and Time Co-Signed: 11/26/19 13:49 EDT ED Patient Education Noteon 11-26-2019 ED Patient Education Note Family Medicine Viral Infections A viral infection can be caused by different types of viruses.?Most viral infections are not serious and resolve on their own. However, some infections may cause severe symptoms and may lead to further complications. SYMPTOMS Viruses can frequently cause: ? Minor sore throat. ? Aches and pains. ? Headaches. ? Runny nose. ? Different types of rashes. ? Watery eyes. ? Tiredness. ? Cough. ? Loss of appetite. ? Gastrointestinal infections, resulting in nausea, vomiting, and diarrhea. These symptoms do not respond to antibiotics because the infection is not caused by bacteria. However, you might catch a bacterial infection following the viral infection. This is sometimes called a superinfection. Symptoms of such a bacterial infection may include: ? Worsening sore throat with pus and difficulty swallowing. ? Swollen neck glands. ? Chills and a high or persistent fever. ? Severe headache. ? Tenderness over the sinuses. ? Persistent overall ill feeling (malaise), muscle aches, and tiredness (fatigue). ? Persistent cough. ? Yellow, green, or brown mucus production with coughing. HOME CARE INSTRUCTIONS ? Only take amtf-hyd-mryvzpc or prescription medicines for pain, discomfort, diarrhea, or fever as directed by your caregiver. ? Drink enough water and fluids to keep your urine clear or pale yellow. Sports drinks can provide valuable electrolytes, sugars, and hydration. ? Get plenty of rest and maintain proper nutrition. Soups and broths with crackers or rice are fine. SEEK IMMEDIATE MEDICAL CARE IF: ? You have severe headaches, shortness of breath, chest pain, neck pain, or an unusual rash. ? You have uncontrolled vomiting, diarrhea, or you are unable to keep down fluids. ? You or your child has an oral temperature above 102? F (38.9? C), not controlled by medicine. ? Your baby is older than 3 months with a rectal temperature of 102? F (38.9? C) or higher. ? Your baby is 3 months old or younger with a rectal temperature of 100.4? F (38? C) or higher. MAKE SURE YOU: ? Understand these instructions. ? Will watch your condition. ? Will get help right away if you are not doing well or get worse. Document Released: 05/04/2006 Document Revised: 10/16/2012 Document Reviewed: 11/29/2011 ExitCare? Patient Information ?2015 [employer]. This information is not intended to replace advice given to you by your health care provider. Make sure you discuss any questions you have with your health care provider. Normal [facility] ED Patient Summaryon 020 ED Patient Summary (Inserted Image. Elosia ble to display) [place] [id number] Patient Discharge Instructions Person Information Name: TIA FLANAGAN Age: 44 Years Arrival Date: 11/26/2019 12:01:15 Discharge Diagnosis: Viral URI Primary Care Physician: MAXIMILIANO HERNANDEZ MD Provider Information Primary Provider: Mike Meyer DO Advanced X Ray Service Engineer:Nicola Serrano PA-C The exam and treatment you received in the Emergency Department were for an urgent problem and are not intended as complete care. It is important that you follow up with a doctor, nurse practitioner, or physician?s research program assistant for ongoing care. If your symptoms become worse or you do not improve as expected and you are unable to reach your usual health care provider, you should return to the Emergency Department. We are available 24 hours a day. TIA FLANAGAN has been given the following list of patient education materials, prescriptions and follow-up instructions: Follow-up Instructions: With: Address: When: MAXIMILIANO HERNANDEZ [address] [place] [id number] [employer] (1) In 3 days 11/29/2019 In the event that this physician does not participate in your insurance network, please consult with your insurance company to find a nearby participating provider. Patient Education Materials: Viral Infections A MESSAGE TO ALL PATIENTS REGARDING OPIOIDS PRESCRIPTION OPIOIDS: WHAT YOU NEED TO KNOW Prescription opioids can be used to help relieve jnvgxzyr-eu-qadefg pain and are often prescribed following a surgery or injury, or for certain health conditions. These medications can be an important part of the treatment but also come with serious risks. It is important to work with your healthcare provider to make sure you are getting the safest, most effective care. WHAT ARE THE RISKS AND SIDE EFFECTS OF OPIOID USE? Prescription opioids carry serious risks of addiction and overdose, especially with prolonged use. An opioid overdose, often marked by slowed breathing, can cause sudden . The use of prescription opioids can have a number of side effects as well, even when taken as directed: ? Tolerance?meaning you might need to take more of the medication for the same pain relief ? Physical dependence?meaning you have symptoms of withdrawal when a medication is stopped ? Increased sensitivity to pain ? Constipation ? Nausea, vomiting, and dry mouth ? Sleepiness and dizziness ? Confusion ? Depression ? Low levels of testosterone that can result in lower sex drive, energy, and strength ? Itching and sweating RISKS ARE GREATER WITH: ? History of drug misuse, substance use disorder, or overdose ? Mental health conditions (such as depression or anxiety) ? Sleep apnea ? Older age (65 years and older) ? Avoid alcohol while taking prescription opioids. Also, unless specifically advised by your health care provider, medications to avoid include: ? Benzodiazepines (such as Xanax or Valium) ? Muscle relaxants (such as Soma or Flexeril) ? Hypnotics (such as Ambien or Lunesta) ? Other prescription opioids KNOW YOUR OPTIONS Talk to your health care provider about ways to manage your pain that don?t involve prescription opioids. Some of these options may actually work better and have fewer risks and side effects. Options may include: ? Pain relievers such as acetaminophen, ibuprofen, and naproxen ? Some medication that are also used for depression or seizures ? Physical therapy and exercise ? Cognitive behavioral therapy, a psychological, goal-directed approach, in which patients learn how to modify physical, behavioral, and emotional triggers of pain and stress. IF YOU ARE PRESCRIBED OPIOIDS FOR PAIN: ? Never take opioids in greater amounts or more often than prescribed. ? Follow up with your primary health care provider. o Work together to create a plan on how to manage your pain. o Talk about ways to help manage your pain that don?t involve prescription opioids. o Talk about any and all concerns and side effects. ? Help prevent misuse and abuse o Never sell or share prescription opioids. o Never use another person?s prescription opioids. ? Store prescription opioids in a secure place and out of reach of others (this may include visitors, children, friends, and family). ? Safely dispose of unused prescription opioids: Find your community drug take-back program or your pharmacy mail-back program, or flush them down the toilet, following guidance from the Food and Drug Administration (www.fda.gov/Drugs/Reso urcesForYou). ? Visit www.cdc.gov/drugoverdos e to learn about the risks of opioids abuse and overdose. ? If you believe you may be struggling with addiction, tell your health customer care agent and ask for guidance or call SAMHSA?S National Helpline at 8-051-345-QSUP. v Source: US Department of Health and Human Services/Center for Disease Control & Prevention [facility] Medications Given: Medication Dose Route No medications found. Medication Information: Medications to Continue with No Changes Other Medications fluoxetine 20 Milligram By Mouth every day. levothyroxine 75 Microgram By Mouth every day. Comment: Pharmacy Information: Thank you for choosing [facility] Patient Education Materials: Viral Infections A viral infection can be caused by different types of viruses.?Most viral infections are not serious and resolve on their own. However, some infections may cause severe symptoms and may lead to further complications. SYMPTOMS Viruses can frequently cause: ? Minor sore throat. ? Aches and pains. ? Headaches. ? Runny nose. ? Different types of rashes. ? Watery eyes. ? Tiredness. ? Cough. ? Loss of appetite. ? Gastrointestinal infections, resulting in nausea, vomiting, and diarrhea. These symptoms do not respond to antibiotics because the infection is not caused by bacteria. However, you might catch a bacterial infection following the viral infection. This is sometimes called a superinfection. Symptoms of such a bacterial infection may include: ? Worsening sore throat with pus and difficulty swallowing. ? Swollen neck glands. ? Chills and a high or persistent fever. ? Severe headache. ? Tenderness over the sinuses. ? Persistent overall ill feeling (malaise), muscle aches, and tiredness (fatigue). ? Persistent cough. ? Yellow, green, or brown mucus production with coughing. HOME CARE INSTRUCTIONS ? Only take ywtb-yhg-hlwneue or prescription medicines for pain, discomfort, diarrhea, or fever as directed by your caregiver. ? Drink enough water and fluids to keep your urine clear or pale yellow. Sports drinks can provide valuable electrolytes, sugars, and hydration. ? Get plenty of rest and maintain proper nutrition. Soups and broths with crackers or rice are fine. SEEK IMMEDIATE MEDICAL CARE IF: ? You have severe headaches, shortness of breath, chest pain, neck pain, or an unusual rash. ? You have uncontrolled vomiting, diarrhea, or you are unable to keep down fluids. ? You or your child has an oral temperature above 102? F (38.9? C), not controlled by medicine. ? Your baby is older than 3 months with a rectal temperature of 102? F (38.9? C) or higher. ? Your baby is 3 months old or younger with a rectal temperature of 100.4? F (38? C) or higher. MAKE SURE YOU: ? Understand these instructions. ? Will watch your condition. ? Will get help right away if you are not doing well or get worse. Document Released: 05/04/2006 Document Revised: 10/16/2012 Document Reviewed: 11/29/2011 ExitCare? Patient Information ?2014 [employer]. This information is not intended to replace advice given to you by your health care provider. Make sure you discuss any questions you have with your health care provider. I, TIA FLANAGAN , have received the following patient education materials/instructions and have verbalized understanding: Patient Education Materials: Viral Infections Follow-up Instructions: With: Address: When: MAXIMILIANO HERNANDEZ [address] [place] [id number] Business (1) In 3 days 11/29/2019 Patient Signature Date Clinician/Nurse Signature _ Date 11/26/2019 13:54:19 Normal [facility] UA With Cult Reflexon 2019 Bilirubin Ql (U) Negative Normal Negative [facility] Comment on above: Performed By: #### 1 [id number] #### [facility] [address] [place] [address] Clarity (U) CLEAR Normal Clear [facility] Comment on above: Performed By: #### 1 [id number] #### [facility] [address] [place] [address] Color (U) YELLOW Normal Yellow [facility] Comment on above: Performed By: #### 1 [id number] #### [facility] [address] [place] [address] Crystals LM Ql (Urine sed) Present Normal [facility] Comment on above: Performed By: #### 1 [id number] #### [facility] [address] [place] [address] Epithelial cells.squamous LM.HPF (Urine sed) [#/Area] 0-2 Normal 0-2 [facility] Comment on above: Performed By: #### 1 [id number] #### [facility] [address] [place] [address] Glucose Test strip (U) [Mass/Vol] Negative Normal Negative [facility] Comment on above: Performed By: #### 1 [id number] #### [facility] [address] [place] [address] Hemoglobin Ql (U) Negative Normal Negative [facility] Comment on above: Performed By: #### 1 [id number] #### [facility] [address] [place] [address] Ketones (U) [Mass/Vol] Negative Normal Negative [facility] Comment on above: Performed By: #### 1 [id number] #### [facility] [address] [place] [address] Rollins.plasma/Lit hium.RBC (Bld) [Mass ratio] 0-3 Normal 0-3 [facility] Comment on above: Performed By: #### 1 [id number] #### [facility] [address] [place] [address] Mucus Ql (Urine sed) TRACE Normal [facility] Comment on above: Performed By: #### 1 [id number] #### [facility] [address] [place] [address] Nitrite Ql (U) Negative Normal Negative [facility] Comment on above: Performed By: #### 1 [id number] #### [facility] [address] [place] [address] pH (U) 5.5 [pH] 5.0-9.0 [facility] Comment on above: Performed By: #### 1 [id number] #### [facility] [address] [place] [address] Protein (U) [Mass/Vol] Negative Normal Negative [facility] Comment on above: Performed By: #### 1 [id number] #### [facility] [address] [place] [address] Specific gravity (U) [Rel density] 1.015 1.005-1.030 [facility] Comment on above: Performed By: #### 1 [id number] #### [facility] [address] [place] [address] UA Spec Desc Clean Catch Normal [facility] Comment on above: Performed By: #### 1 [id number] #### [facility] [address] [place] [address] Urobilinogen Qn (U) 0.2 {Teresa'U}/dL Normal 0.0-1.0 [facility] Comment on above: Performed By: #### 1 [id number] #### [facility] [address] [place] [address] WBC Auto Ql (U) Negative Normal Negative [facility] Comment on above: Performed By: #### 1 [id number] #### [facility] [address] [place] [address] WBC LM.HPF (Urine sed) [#/Area] 0-5 Normal 0-5 [facility] Comment on above: Performed By: #### 1 [id number] #### [facility] [address] [place] [address] XR Chest Single Viewon 11-25 XR Chest Single View Exam Date/Time: 11/26/2019 12:33 EDT Reason for Exam: Cough Report IMPRESSION: NO RADIOGRAPHIC EVIDENCE OF ACUTE INTRATHORACIC PROCESS. EXAM: Portable chest radiograph History: Cough Technique: Portable AP view of the chest. Comparison: None available Findings: The cardiomediastinal silhouette is within normal limits. No pneumothorax, pleural effusion, or consolidation. Bones of the thorax appear intact. FINAL REPORT Dictated: 11/26/2019 12:42 pm Mike Byrd DO Signed (Electronic Signature): 11/26/2019 12:42 pm Signed by: Mike Byrd DO Transcribed by: JAYSON Technologist: YANELIS Gonzalez [facility] Encounters Encounter Date Encounter Type Care Provider Facility Start: 11-16-2023 End: 11-16-2023 ambulatory MAUREEN CAMPOS [facility] Start: 09-12-2023 End: 09-12-2023 ambulatory MIR STOUT Not Available Start: 09-12-2023 Chart abstracting Mir hanson DPM Work Phone: [facility] Start: 08-29-2023 End: 08-29-2023 ambulatory MIR STOUT Not Available Start: 01-17-2023 End: 01-17-2023 ambulatory BENTON AMATO Facility:[facility] Start: 10-18-2022 End: 10-18-2022 ambulatory Lauren Pepe RT(R) Radiology Comment on above: Radiology XR Start: 10-18-2022 Patient encounter procedure Lauren Pepe RT(R) [facility] [place] Start: 04-19-2022 End: 04-19-2022 ambulatory MAXIMILIANO HERNANDEZ II Facility:[facility] Start: 04-19-2022 End: 04-19-2022 Patient encounter procedure Anton Tariq PA-C Work Phone: Orthopaedics Comment on above: S/P right unicompart mental knee replacement (Primary Dx) Start: 01-18-2022 Refill Anton RAMOS-Antonina Work Phone: Orthopaedics Start: 12-28-2021 End: 12-28-2021 Patient encounter procedure Benton Amato MD Work Phone: Orthopaedics Comment on above: S/P right unicompart mental knee replacement (Primary Dx); Status post knee replacement, unspecified laterality Start: 11-23-2021 End: 11-24-[address] BOGGS LISTED REQUEST Facility: Start: 11-04-2021 End: 11-04-2021 Patient encounter procedure Benton Amato MD Work Phone: Orthopaedics Comment on above: S/P right unicompart mental knee replacement (Primary Dx) Start: 09-23-2021 End: 01-07-[address] BENTON AMATO Facility:[facility] Start: 08-13-[address] DOCTOR GRIMES Facility :[facility] Start: 04-02-2021 End: 04-02-2021 Subsequent hospital visit by physician Philip [facility] Comment on above: Bilateral hand pain [M79.641, M79.642] Start: 03-20-2021 End: 03-21-[address] Yulisa DOMINGO Facility:[facility] Procedures Date Procedure Procedure Detail Performing Clinician Start: 06-08-2023 Mammography Mir Stout DPM Work Phone: Start: 02-07-2023 H/O: hysterectomy History of hysterectomy Mir Stout D PM Work Phone: Start: 10-14-2021 History of operative procedure on knee S/P right unicompartmental knee replacement Benton Amato MD Work Phone: Start: 07-27-2021 Antibody screen Start: 04-02-2021 End: 04-02-2021 Radex hand minimum 3 views Kia Burgess MD Work Phone: Start: 03-29-2021 Adult depression screening assessment Benton Amato MD Work Phone: History of operative procedure on knee S/P right unicompartmental knee replacement Benton Amato MD Work Phone: History of operative procedure on knee Status post knee replacement, unspecified laterality Benton Amato MD Work Phone: History of operative procedure on knee S/P right unicompartmental knee replacement Anton Tariq PA-C Work Phone: History of operative procedure on knee S/P right unicompartmental knee replacement Anton Tariq PA-C Work Phone: Plan of Treatment Date Care Activity Detail Author Start: 03-20-2026 Screening for malign ant neoplasm of colon [facility] Start: 09-15-2024 DIABETES SCREEN DIABETES SCREEN [facility] Start: 06-08-2024 Screening for malign ant neoplasm of breast Mammogram [facility] Start: 09-12-2023 End: 09-12-2023 Clinical Support 09/12/2023 2:00 PM EST Clinical Support [facility] [address] [place] [id number] Mir Stout DPM [address] [address] [facility] Start: 04-08-2023 Influenza vaccination [facility] Start: 08-08-2022 DEPRESSION ASSESSMENT DEPRESSION ASS ESSMENT [facility] Start: 04-08-2022 Influenza vaccination [facility] Start: 03-29-2022 Adult depression scr eening assessment DEPRESSION SCREENING [facility] Start: 04-08-2021 Influenza vaccination INFLUENZA (#1) [facility] Start: 2018 COLOGUARD (FIT-DNA) COLOGUARD (FIT-D NA) [facility] Start: 2018 Colonoscopy COLONOSCOPY [facility] Start: 2018 COLORECTAL CANCER SCREENING COLORECTAL CANCER SCREENING [facility] Start: [address] COLONOGRAPHY [facility] Start: 2018 FECAL OCCULT BLOOD FECAL OCCULT BLOO D [facility] Start: 2018 LIPID SCREEN LIPID SCREEN [facility] Start: 2018 SIGMOIDOSCOPY SIGMOIDOSCOPY [facility] Start: 2013 Mammography MAMMOGRAM [facility] Start: 2003 HPV TESTING HPV TESTING [facility] Start: 1994 PAP TESTING PAP TESTING [facility] Start: 1992 Urine microalbumin profile DTAP,TDAP ,TD (1 - Tdap) [facility] Start: 1991 ANNUAL PCP TEAM DRILL FOREMAN JOSE DISEASE VISIT ANNUAL PCP TEAM CHRONIC DISEASE VISIT [facility] Start: 1991 HIV SCREENING HIV SCREENING [facility] Start: 1979 PNEUMOCOCCAL (1 - PCV) PNEUMOCOCCAL (1 - PCV) [facility] Start: 1978 COVID-19 VACCINE (#1) COVID-19 VACCI NE (#1) [facility] Start: 1978 COVID-19 VACCINE (1) COVID-19 VACCIN E (1) [facility] Start: 1973 COVID-19 VACCINE (#1) COVID-19 VACCI NE (#1) [facility] Start: 1973 Screening for malign ant neoplasm of colon [facility] Immunizations Immunization Date Immunization Notes Care Provider Fernanda campo 07-09-2013 hepatitis B vaccine, pediatric or pediatric/adolescent dosage Mir Stout DPM Work Phone: [facility] 06-05-2013 hepatitis B vaccine, pediatric or pediatric/adolescent dosage Mir Stout DPM Work Phone: [facility] Payers Date Payer Category Payer Unknown MMO MMO [employer] [id number] 2021-Present [phone] [address] [place] [address] PPO [id number] 2021 Unknown [id number] 2020 Private Health Insurance [employer]BRA MORALES OAP [id number] 2020-2021 [address] [place] [address] Open Access [id number] 2008 Managed Care HMO (unspecified) KELLIE HOPKINS [id number] 2008-Present [address] [place] [address] HMO [id number] 2008 Private Health Insurance [id number] 1973 Unknown [id number] 1973 Unknown [id number] 1973 Unknown [id number] 1973 Unknown [id number] 1973 Unknown [id number] 1973 Unknown [id number] 1973 Unknown [id number] 1959 Private Health Insurance [id number] 1959 Unknown [id number] Social History Date Type Detail Facility Start: 04-02-2021 End: 02-07-2023 Tobacco smoking status NHIS Ex-smoker [facility] End: 08-08-2017 History of tobacco use Current smoker [facility] End: 08-08-2017 History of tobacco use Cigarette Smoker [facility] Start: 04-02-2021 End: 02-07-2023 Tobacco use and exposure Smokeless tobacco non-user [facility] Start: 10-15-2021 End: 08-29-2023 Alcohol intake Ex-drinker (finding) [facility] Start: 07-27-2021 Tobacco Comment .5 ppd since age 14 [facility] Start: 1973 Sex Assigned At Female [facility] Start: 03-03-2021 End: 04-19-2022 Exposure to SARS-CoV-2 (event) Not sure [facility] Start: 04-02-2021 Alcohol intake Current drinke r of alcohol (finding) [facility] Start: 04-02-2021 End: 02-08-2023 History of Social function [facility] Start: 04-02-2021 End: 02-08-2023 Tobacco use panel [facility] Adult Depression Scr eening Assessment 0 [facility] Start: 03-29-2021 Gender identity Identifies as female gender (finding) [facility] Start: 03-29-2021 Sexual orientation Heterosexual (nicholas pastrana) [facility] Within the last year , have you been afraid of your partner or ex-partner? No [facility] Do you belong to any clubs or organizations such as gnosticist groups, unions, fraternal or athletic groups, or school groups? Yes [facility] Are you now , , , , never or living with a partner? [facility] How hard is it for y ou to pay for the very basics like food, housing, medical care, and heating Not very hard [facility] Do you feel stress - tense, restless, nervous, or anxious, or unable to sleep at night because your mind is troubled all the time - these days [OSQ] Not at all [facility] (I/We) worried wheth er (my/our) food would run out before (I/we) got money to buy more. Never true [facility] Start: 1975 Sex Assigned At Not on file [facility] Medical Equipment Procedure Code Equipment Code Equipment Original Text Equipment Identifier Dates Cement Simplex B one High Viscosity - [id number] Start: 09-21-2021 Component [place] Medium Cocrmo Femoral Phase 3 Twin Peg Unicompartmental - [id number] Start: 09-21-2021 Bearing [place] 6 Tibial Fix Knee Right Lateral - [id number] Start: 09-21-2021 Clinical Notes 09-21-2021 to 01-17-2023 RT Samara(R) - 10/18/2022 9:48 AM EDTPatient InstructionsAnton Tariq PA-C - 04/19/2022 8:33 AM EDTTelephone Encounter - Anton Tariq PA-C - 01/18/2022 10:44 AM EDT Note Date & Type Note Facility 01-17-2023 Note HNO ID: [id number] Author: Benton Amato MD Service: ? Author Type: Physician Type: Progress Notes Filed: 01/17/2023 12:26 PM Note Text: see dictated note Benton Amato II, MD [facility] 01-17-2023 Note HNO ID: [id number] Author: Benton Amato MD Service: Orthopaedic Surgery Author Type: Physician Type: Progress Notes Filed: 01/20/2023 2:27 PM Note Text: [facility] [address] [place], [place] [address] CLINIC NOTE Department of Orthopaedics - Damon Amato II, M.D. NAME: TIA FLANAGAN CLINIC NO.: [id number] DATE OF SERVICE: 01/17/2023 CHIEF COMPLAINT: Recheck of right knee. Right lateral ISABELL, 09/21/2021 - 1 year plus. She is doing quite well and has some weakness in her leg. Slight amount of valgus of the right knee, but does not describe a buckling or giving way of significance. She does need to have buildup more strength in her right knee. Have explained this to her. See back in 6 months. Dictated By: Benton Amato II, M.D. Date Dictated: 01/17/2023 Date Typed: [facility] 01/17/2023 JOB# [id number] [facility] 01-17-2023 Note HNO ID: [id number] Author: RT Ivan(R) Service: ? Author Type: Technologist Type: Progress Notes Filed: 01/17/2023 8:37 AM Note Text: Radiology Service Progress Note PATIENT NAME: Tia Flanagan DATE OF SERVICE: January 17, 2023 TIME: 8:36 AM PATIENT IDENTITY VERIFICATION COMPLETED USING TWO (2) IDENTIFIERS: Name and Date of confirmed by patient verbally. FALL SCREENING: Has the patient had 2 falls in the last year or 1 fall with injury or currently using an Ambulatory Assistive Device (Walker, Cane, Wheelchair, Crutches, etc.)? No PATIENT GENDER DATA: Female. status: : No status: NO. PATIENT RELEVANT IMPLANT DATA REVIEWED: Not Applicable RADIOLOGY DEPARTMENT: General X-ray: Exam(s) Completed: Lower Extremity X-Ray(s): Knee, AP / Lat / Merchant Right and Wt. Bearing PERIPHERAL IV DATA: Not applicable SIGNED BY: RT Ivan(R) January 17, 2023 8:36 AM [facility] 10-18-2022 Note HNO ID: [id number] Author: Benton Amato MD Service: ? Author Type: Physician Type: Progress Notes Filed: 10/18/2022 12:17 PM Note Text: see dictated note Benton Amato II, MD [facility] 10-18-2022 Note HNO ID: [id number] Author: Benton Amato MD Service: Orthopaedic Surgery Author Type: Physician Type: Progress Notes Filed: 10/20/2022 8:33 AM Note Text: [facility] [address] [place], [place] [address] CLINIC NOTE Department of Orthopaedics - Damon Amato II, M.D. NAME: TIA FLANAGAN CLINIC NO.: [id number] DATE OF SERVICE: 10/18/2022 CHIEF COMPLAINT: Recheck of right knee. Right lateral ISABELL 09/21/2021 - 1 year plus. HISTORY: She is doing quite well and is able to work all day. 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 Her only complaint is that she is limping. PHYSICAL EXAMINATION: The patient has developed global loosening and has MCL laxity and has some hyperextension of her knee. When she walks, she has definite valgus gait. X-rays today show the lateral compartment prosthesis in place with opening of the medial compartment. The patient also has slight hyperextension. With varus force, there is no opening of the lateral compartment. With valgus force, there is opening in the medial compartment with slight flexion. The patient states that her knocked knee is nowhere near as bad as it was prior to surgery. PLAN: I have asked her just to see how she does. The good side is that she has absolutely no pain and she is able to work and sleep, etc. If this becomes more unstable, we would have to consider converting this to a total knee replacement. Dictated By: Benton Amato II, M.D. Date Dictated: 10/18/2022 Date Typed: [facility] 10/18/2022 JOB# [id number] [facility] 10-18-2022 Note HNO ID: [id number] Author: RT Samara(Laina) Service: ? Author Type: Technologist Type: Progress Notes Filed: 10/18/2022 9:49 AM Note Text: Radiology Service Progress Note PATIENT NAME: Tia Flanagan DATE OF SERVICE: October 18, 2022 TIME: 9:48 AM PATIENT IDENTITY VERIFICATION COMPLETED USING TWO (2) IDENTIFIERS: Name and Date of confirmed by patient verbally. FALL SCREENING: Has the patient had 2 falls in the last year or 1 fall with injury or currently using an Ambulatory Assistive Device (Walker, Cane, Wheelchair, Crutches, etc.)? No PATIENT GENDER DATA: Female. status: : No status: N/A PATIENT RELEVANT IMPLANT DATA REVIEWED: Not Applicable RADIOLOGY DEPARTMENT: General X-ray: Exam(s) Completed: Lower Extremity X-Ray(s): Knee, AP / Lat / Merchant Right and Wt. Bearing PERIPHERAL IV DATA: Not applicable SIGNED BY: RT Urbano(R) October 18, 2022 9:48 AM [facility] 10-18-2022 History of Presen t illness Narrative Radiology Service Progress Note PATIENT NAME: Tia Flanagan DATE OF SERVICE: October 18, 2022 TIME: 9:48 AM PATIENT IDENTITY VERIFICATION COMPLETED USING TWO (2) IDENTIFIERS: Name and Date of confirmed by patient verbally. FALL SCREENING: Has the patient had 2 falls in the last year or 1 fall with injury or currently using an Ambulatory Assistive Device (Walker, Cane, Wheelchair, Crutches, etc.)? No PATIENT GENDER DATA: Female. status: : No status: N/A PATIENT RELEVANT IMPLANT DATA REVIEWED: Not Applicable RADIOLOGY DEPARTMENT: General X-ray: Exam(s) Completed: Lower Extremity X-Ray(s): Knee, AP / Lat / Merchant Right and Wt. Bearing PERIPHERAL IV DATA: Not applicable SIGNED BY: RT Urbano(R) October 18, 2022 9:48 AM documented in this encounter [facility] 04-19-2022 Note HNO ID: [id number] Author: Anton Tariq PA-C Service: ? Author Type: Physician Respiratory Therapy Director Type: Progress Notes Filed: 04/19/2022 8:58 AM Note Text: This document has been created with the use of voice recognition technology. It may contain inaccuracies such as misspellings, inaccurate syntax or word sense that escaped review. Chief complaint: Recheck of right knee Right partial lateral isabell 09/21/2021 (7 months) HISTORY: Tia is a 46 year old female. Patient comes in today for follow up of her right knee. She reports that overall she is doing well. Just gets achiness and soreness intermittently if she sits for any length of time. She is up and down at work all the time which helps but she gets achy by the end of the day. Will take occasional ibuprofen.. She states pain is well controlled with ibuprofen. She reports that she was exercising at the pool regularly but once the warm weather hit she stopped going. She does sit in a hot tub on occasion to help loosen up the knee. Pain level 0-4/10. No other musculoskeletal complaints PAST MEDICAL HISTORY Diagnosis Date Hypothyroidism Melanoma (HCC) T1N1M0 PAST SURGICAL HISTORY Procedure Laterality Date ARTHROSCOPY KNEE DIAGNOSTIC W/WO SYNOVIAL BX SPX Right COLONOSCOPY GEN ANES EXTENSIVE LEG SURGERY Right Melanoma removed from right leg and lymph nodes TOTAL ABDOM HYSTERECTOMY 2019 Medications reviewed. ALLERGIES Allergen Reactions Bee Pollen Swelling Oxycodone Itching ok if used with benadryl norco ok Silver Other: See Comments Jorge. Redness in ears. Sulfa Drugs [Sulfa * Hives Social History Tobacco Use Smoking status: Former Types: Cigarettes Quit date: 2016 Years since quittin.7 Smokeless tobacco: Never Tobacco comments: .5 ppd since age 14 Substance Use Topics Alcohol use: Not Currently Drug use: No EXAMINATION: GENERAL: Appears healthy, well-nourished, no deformities. ORIENTATION: Alert and oriented to person place and time HABITUS: Normal GAIT: Ambulating with a normal gait On physical exam of the right knee today, Appearance: No warmth or redness, wound is healing satisfactorily with no sign of infection. Calf is soft and nontender. Negative Homans. Tenderness: None Swelling: No swelling of the knee itself, no swelling distally Range of motion: 0-135 degrees easily, with just tightness at extremes Still has fairly significant quadriceps deconditioning on the right compared to the left. Can arise from a chair without using her arms. RADIOGRAPHS: None needed today IMPRESSION: Encounter Diagnosis ICD-10-CM 1. 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 Tolerating her activities fairly well. However she still has a great deal of deconditioning. We discussed appropriate strengthening exercises and handout was given. She will continue these on a regular basis. Limitations were discussed. Discussed kneeling. Follow-up in September for annual recheck. Anton Tariq PA-C April 19, 2022 8:34 AM [facility] 04-19-2022 Instructions Anton Tariq PA-C - 04/19/2022 8:51 AM EDT Exercises to be done twice a day: -Straight leg raises: Lay on your back and left your leg while keeping your knee straight. Do 3 sets of 10 -Chair squats: Sit with your feet shoulder width apart and arise from the chair pushing off only as much as you need to to avoid pain. Do 3 sets of 10 - Slow march balance exercises: Stand and bend your knee and lift 1 leg in a marching motion and hold for 5 to 10 seconds, holding on only as much as you need to to keep balance. Switch back and forth between legs 20 times. documented in this encounter [facility] 04-19-2022 History of Presen t illness Narrative This document has been created with the use of voice recognition technology. It may contain inaccuracies such as misspellings, inaccurate syntax or word sense that escaped review. Chief complaint: Recheck of right knee Right partial lateral isabell 09/21/2021 (7 months) HISTORY: Tia is a 46 year old female. Patient comes in today for follow up of her right knee. She reports that overall she is doing well. Just gets achiness and soreness intermittently if she sits for any length of time. She is up and down at work all the time which helps but she gets achy by the end of the day. Will take occasional ibuprofen.. She states pain is well controlled with ibuprofen. She reports that she was exercising at the pool regularly but once the warm weather hit she stopped going. She does sit in a hot tub on occasion to help loosen up the knee. Pain level 0-4/10. No other musculoskeletal complaints PAST MEDICAL HISTORY Diagnosis Date Hypothyroidism Melanoma (HCC) T1N1M0 PAST SURGICAL HISTORY Procedure Laterality Date ARTHROSCOPY KNEE DIAGNOSTIC W/WO SYNOVIAL BX SPX Right COLONOSCOPY GEN ANES EXTENSIVE LEG SURGERY Right Melanoma removed from right leg and lymph nodes TOTAL ABDOM HYSTERECTOMY 2019 Medications reviewed. ALLERGIES Allergen Reactions Bee Pollen Swelling Oxycodone Itching ok if used with benadryl norco ok Silver Other: See Comments Jorge. Redness in ears. Sulfa Drugs [Sulfa * Hives Social History Tobacco Use Smoking status: Former Types: Cigarettes Quit date: 2016 Years since quittin.7 Smokeless tobacco: Never Tobacco comments: .5 ppd since age 14 Substance Use Topics Alcohol use: Not Currently Drug use: No EXAMINATION: GENERAL: Appears healthy, well-nourished, no deformities. ORIENTATION: Alert and oriented to person place and time HABITUS: Normal GAIT: Ambulating with a normal gait On physical exam of the right knee today, Appearance: No warmth or redness, wound is healing satisfactorily with no sign of infection. Calf is soft and nontender. Negative Homans. Tenderness: None Swelling: No swelling of the knee itself, no swelling distally Range of motion: 0-135 degrees easily, with just tightness at extremes Still has fairly significant quadriceps deconditioning on the right compared to the left. Can arise from a chair without using her arms. RADIOGRAPHS: None needed today IMPRESSION: Encounter Diagnosis ICD-10-CM 1. 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 Tolerating her activities fairly well. However she still has a great deal of deconditioning. We discussed appropriate strengthening exercises and handout was given. She will continue these on a regular basis. Limitations were discussed. Discussed kneeling. Follow-up in September for annual recheck. Anton Tariq PA-C April 19, 2022 8:34 AM documented in this encounter [facility] 01-18-2022 Miscellaneous Notes rx [facility] patient notified Anton Tariq PA-C documented in this encounter [facility] 12-28-2021 History of Presen t illness Narrative see dictated note Benton Amato II, MD documented in this encounter [facility] 11-04-2021 History of Presen t illness Narrative SEE DICTATED NOT E Benton Amato II, MD documented in this encounter [facility] 09-21-2021 Note HNO ID: [id number] Author: Sanaz Mane ([employer]) Service: ? Author Type: ? Type: Plan of Care Filed: 09/21/2021 4:27 PM Note Text: The following medications were delivered to the patient: Medication List START taking these medications X aspirin, enteric coated 81 mg EC tablet Commonly known as: ECOTRIN LOW STRENGTH Take 1 tablet by mouth twice daily for 28 days. X cephALEXin 500 mg capsule Commonly known as: KEFLEX Take 1 capsule by mouth four times daily for 1 day. X docusate sodium 100 mg capsule Commonly known as: COLACE Take 1 capsule by mouth twice daily as needed for constipation. X HYDROcodone-acetaminophen 5-325 mg per tablet Commonly known as: NORCO Take 1-2 tablets by mouth every 4-6 hours as needed for pain. CONTINUE taking these medications cyclobenzaprine 5 mg tablet Commonly known as: FLEXERIL hosgvwrqskk-H0-jyzybvfmac acid 1,000 mg- 25 mcg-1.65 mg Tab MULTI-VITAMIN ORAL omeprazole 20 mg capsule Commonly known as: PriLOSEC PROzac 20 mg capsule Generic drug: FLUoxetine SYNTHROID 100 mcg tablet Generic drug: levothyroxine TUMS ORAL You might also be taking other medications not listed above. If you have questions about any of your other medications, talk to the person who prescribed them or your Primary Care Provider. Sanaz Mane ([employer]) PAGER: anh September 21, 2021 4:27 PM [facility] 09-21-2021 Note HNO ID: [id number] Author: Monica Keller MD Service: Anesthesiology Author Type: Physician Type: Anesthesia Procedure Notes Filed: 09/21/2021 10:32 AM Note Text: ANESTHESIOLOGY PROCEDURE NOTE Peripheral Nerve Block General Information Procedure Start Time/Medication Administration: 09/21/2021 9:58 AM Procedure End time: 09/21/2021 10:00 AM Patient location during procedure: OR Timeout Performed Pre-procedure: timeout performed Consent Obtained: Yes Patient identity confirmed: arm band, care teamcenter solution architect and patient sedated or unresponsive Reason for block: post-op pain management/at surgeon's request Staffing Anesthesiologist: Monica Keller MD Performed by: anesthesiologist Preparation Sterility Preparation: hand hygiene performed prior to procedure, surgical cap used, mask used, sterile drape used during line insertion, skin prep agent completely dried prior to procedure Site Prep: Chloraprep Pre-Procedure Neuro Exam Location: RLE Sensory: sensory deficit Motor: pre-existing condition Procedure Details Patient Position: supine Monitoring: Pulse OX, EKG and NIBP Block Type Lower Extremity: distal femoral (adductor canal) Laterality: right Injection Technique: single-shot Ultrasound Guided: Yes Image in Chart: yes Local Infiltration: Yes Needle Needle Type: echogenic Needle Gauge: 22 G Needle Length: 100 mm Needle Localization: ultrasound Assessment Injection assessment: negative aspiration, no paresthesia on injection, incremental injection and local visualized surrounding nerve on ultrasound Post-Procedure Neuro Exam Expected Regional Anesthesia: Yes Medications Administered Dexamethasone sodium phosphate injection (DECADRON), 10 mg ropivacaine (PF) 5 mg/mL (0.5 %) injection (NAROPIN), 13 mL SIGNATURE: Monica Keller MD PATIENT NAME: Tia Flanagan DATE: September 21, 2021 TIME: 10:32 AM CSN: [id number] [facility] 09-21-2021 Note HNO ID: [id number] Author: Violeta Oakes APRN.PIE CHEF Service: ? Author Type: Nurse Nonprofit Financial Controller Type: Anesthesia Procedure Notes Filed: 09/21/2021 10:05 AM Note Text: ANESTHESIOLOGY PROCEDURE NOTE Spinal Block General Information Procedure Start Time/Medication Administration: 09/21/2021 9:52 AM Patient location during procedure: OR Timeout Performed Pre-procedure: timeout performed Consent Obtained: Yes Patient identity confirmed: arm band and patient Reason for Block: primary surgical anesthetic Staffing PIE CHEF: Violeta Oakes APRN.PIE CHEF Performed by: PIE CHEF Preparation Sterility Preparation: hand hygiene performed prior to procedure, surgical cap used, mask used, sterile drape used during line insertion, skin prep agent completely dried prior to procedure Site Prep: Duraprep Procedure Details Patient Position: sitting Monitoring: Pulse Ox and NIBP Approach: Midline Location: L3-4 Injection Technique: single-shot Needle Needle Type: pencil-tip Needle Gauge: 25 G Needle Length: 3.5 in Assessment Events: tolerated well Medications Administered Bupivacaine-dextrose 0.75 % (7.5 mg/mL) injection (SENSORCAINE MPF SPINAL), 1.4 mL SIGNATURE: Violeta Oakes APRN.PIE CHEF PATIENT NAME: Tia Flanagan DATE: September 21, 2021 TIME: 10:04 AM CSN: [id number] [facility] 09-21-2021 Note HNO ID: [id number] Author: Brianna Daugherty RN Service: Nursing Author Type: Registered Nurse Type: Nursing Progress Note Filed: 09/21/2021 8:29 AM Note Text: Patient arrived to pre-op with a rash under her left breast, Anton RAMOS made aware. [facility] Evaluation note Diagnosis S/P right unicompartmental knee replacement- Primary Knee joint replacement by other means [facility] Diagnosis Status post knee replacement, unspecified laterality documented in this encounter [facility] note* Diagnosis S/P right unicompartmental knee replacement- Primary Knee joint replacement by other means [facility] Diagnosis S/P right unicompartmental knee replacement- Primary Knee joint replacement by other means [facility] Diagnosis Bilateral hand pain Pain in limb Chronic pain of both knees documented in this encounter [facility] for referral (narrative)* Diagnostic Procedure Only (Routine) - Closed Specialty Diagnoses / Procedures Referred By Luis Carlos t Referred To Contact XR IMAGING Diagnoses Chronic pain of both knees Procedures XR KNEE GENERAL 4V AP BOTH/PA BOTH/LAT/MERC BILAT KNEE AP-WGT/LAT/Kia Burr MD [address] [place] [address] Xr Imaging Referral ID Status Reason Start Date Expiration Date V isits Requested Visits Authorized Closed Auto-Generate d Referral 04/02/2021 05/02/2022 1 1 * Diagnostic Procedure Only (Routine) - Closed Specialty Diagnoses / Procedures Referred By Contac t Referred To Contact XR IMAGING Diagnoses Bilateral hand pain Procedures XR HAND GENERAL 3V PA/LAT/OBL BILAT X-RAY HAND MINIMUM 3 VIEWS Kia Burgess MD [address] [place] [address] Xr Imaging Referral ID Status Reason Start Date Expiration Date V isits Requested Visits Authorized Closed Auto-Generate d Referral 04/02/2021 05/02/2022 1 1 [facility] for visit Narrative* Diagnostic Procedure Only (Routine) - Closed Specialty Diagnoses / Procedures Referred By Contac t Referred To Contact XR IMAGING Diagnoses Chronic pain of both knees Procedures XR KNEE GENERAL 4V AP BOTH/PA BOTH/LAT/MERC BILAT KNEE AP-WGT/LAT/MERCHANT Kia Burgess MD [address] [place] [address] Xr Imaging Referral ID Status Reason Start Date Expiration Date V isits Requested Visits Authorized Closed Auto-Generate d Referral 04/02/2021 05/02/2022 1 1 [facility] Summary Purpose Family History No Family History Records FoundNo Family History Records FoundNo Family History Records FoundNo Family History Records FoundNo Family History Records FoundNo Family History Records FoundNo Family History Records Found Advance Directives No Advanced Directives Records FoundDocuments on File Type Date Recorded Patient Hogshead Opener Expl anation Advance Directive(s) 08/18/2021 11:27 AM Advance Directive(s) 07/14/2021 2:32 PM Additional Source Comments INFORMATION SOURCE (unrecogn ized section and content) DATE CREATED AUTHOR 12/23/2019 [facility] DATE CREATED AUTHOR AUTHOR'S ORGANIZ ATION 09/22/2021 [facility] DATE CREATED AUTHOR AUTHOR'S ORGANIZ ATION 12/12/2021 [facility] d[facility] Specialist DATE CREATED AUTHOR AUTHOR'S ORGANIZ ATION 01/12/2022 [facility] DATE CREATED AUTHOR AUTHOR'S ORGANIZ ATION 01/21/2023 [facility] DATE CREATED AUTHOR AUTHOR'S ORGANIZ ATION 09/13/2023 [facility] CRE[facility] AUTHOR AUTHOR'S ORGANIZ ATION 11/17/2023 [facility] Source Comments (unrecognize d section and content) In the event this informatio n is protected by the Federal Confidentiality of Alcohol and Drug Abuse Patient Records regulations: The Federal rules restrict any use of the information to criminally investigate or prosecute any alcohol or drug abuse patient.[facility] the event this information is protected by the Federal Confidentiality of Alcohol and Drug Abuse Patient Records regulations: The Federal rules restrict any use of the information to criminally investigate or prosecute any alcohol or drug abuse patient.[facility] the event this information is protected by the Federal Confidentiality of Alcohol and Drug Abuse Patient Records regulations: The Federal rules restrict any use of the information to criminally investigate or prosecute any alcohol or drug abuse patient.[facility] the event this information is protected by the Federal Confidentiality of Alcohol and Drug Abuse Patient Records regulations: The Federal rules restrict any use of the information to criminally investigate or prosecute any alcohol or drug abuse patient.[facility] the event this information is protected by the Federal Confidentiality of Alcohol and Drug Abuse Patient Records regulations: The Federal rules restrict any use of the information to criminally investigate or prosecute any alcohol or drug abuse patient.[facility] the event this information is protected by the Federal Confidentiality of Alcohol and Drug Abuse Patient Records regulations: The Federal rules restrict any use of the information to criminally investigate or prosecute any alcohol or drug abuse patient.[facility] Reason for Visit (unrecogniz ed section and content) Reason Comments Established Patient Post Op Knee Replacement Reason Comments Follow Up Reason Comments Radiology XR Care Teams (unrecognized sec tion and content) Glass Vial Bending Conveyor Feeder Relationship Specialty Start Date End Date Maximiliano Hernandez II [address] [facility] [address] [place] [address] PCP - General Internal Medicine 09/21/21 [employer] Conveyor Feeder Relationship Specialty Start Date End Date Maximiliano Hernandez II [address] [facility] [address] [place] [address] PCP - General Internal Medicine 09/21/21 Glass Vial Bending Conveyor Feeder Relationship Specialty Start Date End Date Maximiliano Hernandez II [address] [facility] [address] [place] [address] PCP - General Internal Medicine 09/21/21 Glass Vial Bending Conveyor Feeder Relationship Specialty Start Date End Date Maximiliano Hernandez II [address] [facility] [address] [place] [address] PCP - General Internal Medicine 09/21/21 Glass Vial Bending Conveyor Feeder Relationship Specialty Start Date End Date Maximiliano Gonsales PCP - General Family Medicine 09/03/11 09/20/21 Glass Vial Bending Conveyor Feeder Relationship Specialty Start Date End Date Maximiliano Hernandez MD [address] [facility] [address] [place] [address] PCP - General Internal Medicine 02/07/23 FOR RECORDS PERTAINING TO PATIENTS WHO ARE OR HAVE BEEN ENROLLED IN A CHEMICAL DEPENDENCY/SUBSTANCEABUSE PROGRAM, SOME INFORMATION MAY BE OMITTED. This clinical summary was aggregated from multiple sources. Caution should be exercised in using it in the provision of clinical care. This summary normalizes information from multiple sources, and as a consequence, information in this document may materially change the coding, format and clinical context of patient data. In addition, data may be omitted in some cases. CLINICAL DECISIONS SHOULD BE BASED ON THE PRIMARY CLINICAL RECORDS. [facility]. provides no warranty or guarantee of the accuracy or completeness of information in this document.
== END 2023-11-30 08:34 | disposition home or self-care (01) ==
LOC: PST 08:33
PROVIDERS: PCP Internal Medicine; Visit Provider Surgery
DX: Z01.818 Encounter for other preprocedural examination (principal); R19.5 Other fecal abnormalities

== ENCOUNTER 2023-12-07 06:41 | Day surgery (SDC) | payer OTHER, SELFPAY ==
--- OUTSIDE RECORDS SUMMARY | 2023-12-07 06:44 | XMS_ITS | CCD ---
Author Organization [facility] Care Team Providers Care Stage Technician Name Role Phone Maximiliano Hernandez II Primary Care Provider [facility], DR KNIGHT Attending Unavailable MISC, DR KNIGHT [...] Care UnavailMaximiliano Rod II Primary Care Provider Maximiliano Hernandez II Primary Care Provider MAXIMILIANO HERNANDEZ II Primary Care Unavailable ANTON TARIQ Attending Unavailable BENTON AMATO Attending Unavailable MAXIMILIANO HERNANDEZ II Primary Care Unavailable BENTON AMATO Referring Unavailable MAXIMILIANO HERNANDEZ II Primary Care Unavailable MAXIMILIANO HERNANDEZ II Primary Care Unavailable BENTON AMATO Referring Unavailable MAXIMILIANO HERNANDEZ II Primary Care Unavailable BENTON AMATO Attending Unavailable Maximiliano Gonsales Primary Care Provider MIR STOUT Attending Unavailable MIR STOUT Attending Unavailable Maximiliano Hernandez MD Primary Care Provider MAUREEN CAMPOS Attending MAXIMILIANO Lzao Referring Unavailable MAXIMILIANO HERNANDEZ Primary Care Unavailable Allergies Allergy Classification Reported Allergen(s) Allergy Type Date of Onset Reaction(s) Facility (7 sources) Bee pollen; Translations: [BEE POLLEN] Drug Allergy 1 Swelling [facility] (7 sources) oxyCODONE; Translations: [OXYCODONE] Drug Allergy 2 Itching [facility] Work Phone: (8 sources) Sulfonamides (Antibiotic); Translations: [SULFA (SULFONAMIDE ANTIBIOTICS)] Drug Allergy 2 Hives [facility] (6 sources) Silver; Translations: [SILVER] Drug Allergy 1 Other: See Comments [facility] (1 source) Sulfonamides (Antibiotic) Drug allergy (disorder) 6 [facility] (1 source) Silver Drug Allergy 1 Other: See Comments [facility] (1 source) Sulfacetamide Drug Allergy 3 Rash [...] 5 mg by mouth a s needed. [id number] 0.3 ml EPINEPHrine 1 mg/ml auto-injector (1 [...] Active Comment on above: Take by mouth. dqpunrrnxrk-O9-xq aluronic acid 1,000 mg- 25 mcg-1.65 mg tab (5 sources) take 1 tablet by mouth once daily kwluyfnjsin-B3-wzmvon onic acid 1,000 mg- 25 mcg-1.65 mg [...] (5 sources) Patient condition resolved; Translations: [Resolved afex-CIRKN-35 syndrome] Onset: 07-27-2021 07-27-2021 Episodic Other non-traumatic [...] Test Name Value Interpretation Reference Range Facility [facility] 01-17-2023 [facility] Office Visit (LOORRM ) TIA FLANAGAN ([id number]) 1975 F Date Time Provider Department 01/17/23 [...] Order(s):XR KNEE POST OP 3V AP/LAT/ RIGHT [[id number]] Order #: [id number] FUTURE Prescriptions as of 01/17/2023 - amoxicillin (AMOXIL) 500 mg capsule Take 4 capsules 1 hour before procedure and 2 capsules 6 hours after procedure - SYNTHROID 75 mcg tablet - CALCIUM ORAL Take by mouth. 2 times a week. - elxpbpiofvz-K4-jsjozahk ic acid 1,000 mg- 25 mcg-1.65 mg [...] osteoarthritis of right knee [M17.11] 07/27/2021 Resolved rcgc-NRWLW-89 syndrome [Z86.16] 07/27/2021 Solitary kidney, congenital [Q60.0] 07/27/2021 GERD (gastroesophageal reflux disease) [K21.9] 07/27/2021 S/P right unicompartmental knee replacement [Z9*10/14/2021 Encounter Status:Closed by BENTON AMATO II on 01/17/23 Normal [facility] XR KNEE 3V AP/LAT/MERCHANT R Ton 01-17-2023 [...] other significant abnormality. IMPRESSION: NO SIGNIFICANT CHANGE Senior Wealth Advisor: DEVON Transcribe Date/Time: Jan 17 2023 9:48A Dictated by : KARLA PURI MD This examination was interpreted and the report reviewed and electronically signed by: KARLA PURI MD on Jan 17 2023 9:49AM EST [id number] Normal [facility] CNOVon 10-18-2022 CNOV Office Visit (LOORRM ) TIA FLANAGAN ([id number]) 1975 F Date Time Provider Department 10/18/22 [...] Order(s):XR KNEE POST OP 3V AP/LAT/MERCHANT RIGHT [[id number]] Order #: [id number] FUTURE HINGED KNEE BRACE [[id number]] Order #: [id number] Prescriptions as of 10/18/2022 - SYNTHROID 75 mcg tablet - amoxicillin (POLYMOX, AMOXIL) 500 mg capsule Take 4 capsules 1 hour before procedure and 2 capsules 6 hours after procedure - CALCIUM ORAL Take by mouth. 2 times a week. - smjmkrbwzfi-K6-myqiqhpb ic acid 1,000 mg- 25 mcg-1.65 mg [...] osteoarthritis of right knee [M17.11] 07/27/2021 Resolved kdnl-NBDIO-16 syndrome [Z86.16] 07/27/2021 Solitary kidney, congenital [Q60.0] 07/27/2021 GERD (gastroesophageal reflux disease) [K21.9] 07/27/2021 S/P right unicompartmental knee replacement [Z9*10/14/2021 Encounter Status:Closed by BENTON AMATO II on 10/18/22 [facility] XR KNEE 3V AP/LAT/MERCHANT R Ton 10-18-2022 [...] the tibial component and increased genu valgum. Senior Wealth Advisor: DEVON Transcribe Date/Time: Oct 18 2022 11:05A Dictated by : ANA BALES MD This examination was interpreted and the report reviewed and electronically signed by: ANA BALES MD on Oct 18 2022 11:10AM EST [id number] Normal [facility] CNOVon 04-19-2022 CNOV Office Visit (LOORRM ) TIA FLANAGAN ([id number]) 1975 F Date Time Provider Department 04/19/22 [...] by mouth. 2 times a week. - hcofqteaqmb-Z6-vkhclzkp ic acid 1,000 mg- 25 mcg-1.65 mg [...] once da (more content not included)... Normal [facility] Free T4on 12-11-2021 Free T4 [Mass/Vol] 1.63 ng/dL [facility].80[facility] Comment on above: Performed By: #### T SH, FT4 #### [facility] [address] [place], [place] [id number] TSHon 12-11-2021 TSH 0.115 uIU/mL Low 0.400-4.500 [facility] Warranty Manager Comment on above: Performed By: #### T SH, FT4 #### [facility] [address] [place], [place] [id number] MG MAMM SCREEN 3D RITCHIE CADon 11-23-2021 MG MAMM SCREEN 3D RITCHIE CAD Patient: TIA FLANAGAN Exam Date: 11/23/2021 : 1975 Gender:F Ordering : DR MAXIMILIANO HERNANDEZ M.D. Admission #: [id number] Family : Order #: [id number] CLICK HERE TO VIEW EXAM RADIOLOGY REPORT [...] unknown cancer at age 53. LOCATION: [facility] BREAST COMPOSITION: Scattered areas fibroglandular density. FINDINGS: [...] Baker M.D. on 11/23/2021 at 13:34 Normal [facility] ANES POSTPROC EVALon 022 ANES POSTPROC EVAL HNO ID: [id number] Author: Monica Keller MD Service: Anesthesiology Author [...] September 21, 2021 TIME: 12:56 PM CSN: [id number] [facility] ANES PRE-OPon 09-21-2021 ANES PRE-OP HNO ID: [id number] Author: Monica Keller MD Service: Anesthesiology Author [...] (+) Pain in right hip (+) Resolved xifr-CDNRS-48 syndrome (+) Secondary osteoarthritis of multiple sites [...] 20 mg by mouth once daily. - bknmmwsysyb-W4-ehzqpxcd ic acid 1,000 mg- 25 mcg-1.65 mg [...] September 21, 2021 TIME: 9:25 AM CSN: [id number] Normal [facility] HISTORY PHYSICALon 2 HISTORY PHYSICAL HNO ID: [id number] Author: Liyah Ruiz PA-C Service: Anesthesiology Author Type: Physician Digital Sales Manager Type: HANDP Filed: 09/21/2021 8:19 AM Note [...] 20 mg by mouth once daily. - hiufuceaysl-L4-jgdkcogd ic acid 1,000 mg- 25 mcg-1.65 mg [...] a hil (more content not included)... Normal [facility] OPERATIVE NOon 09-21-2021 OPERATIVE NO HNO ID: [id number] Author: Benton Amato MD Service: Orthopaedic Surgery Author Type: Physician Type: Operative Report Filed: 09/21/2021 11:47 AM Note Text: [facility] OPERATIVE REPORT PATIENT NAME: Tia Flanagan AGE: [age] year old LOG ID: [id number] Surgery Date: 09/21/2021 SURGEON: Benton Amato MD ORAL AND MAXILLOFACIAL SURGERY: Anton Tariq PA-C, SA, her assistance consisted [...] System (Lateral Isabell) SIZE TYPE Femur MEDIUM Lamar Tibia/Polyethylene D6 Isabell Fixed Bearing OPERATIVE FINDINGS: [...] was put into place for a MEDIUM Lamar femoral component and we reamed the distal femur to the MEDIUM Lamar femoral component. The trial Lamar femoral component was then inserted and we measured our flexion gap at 6 and our extension gap at 3. A 2 spigot was then inserted and additional 2 mm was removed from the distal femur equalizing the flexion-extension gap at 6. We then removed osteophy (more content not included)... 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 Gait Training (33218) Treatment Minutes: 15 $ Gait Training (80099) Billed Units: 1 unit Training AND education provided in: Assistive device use, Bed mobility, Benefits of in-hospital mobility, Discharge pl (more content not included)... Normal [facility] XR KNEE 2V AP/LAT RTon 09-21 XR [...] recent surgery. Please see detailed operative report. Senior Wealth Advisor: DEVON Transcribe Date/Time: Sep 21 2021 2:00P Dictated by : MICHELLE WHITE MD This examination was interpreted and the report reviewed and electronically signed by: MICHELLE WHITE MD on Sep 21 2021 2:01PM EST [id number] Normal [facility] HISTORY PHYSICALon HISTORY PHYSICAL HNO ID: [id number] Author: Zofia Macias PA-C Service: ? Author Type: Physician Digital Sales Manager Type: HANDP Filed: 07/29/2021 10:29 AM Note [...] Elizabeth Positive Osteoarthritis of Right Knee Resolved Cgnk-Ulvse-39 Syndrome Solitary Kidney, Congenital Gerd (Gastroesophageal Reflux [...] 07/27/21 1418 Medication Sig Last Dose Taking wodkkhcxgro-L6-yfbnbqvg ic acid 1,000 mg- 25 mcg-1.65 mg [...] fevers. Neuro: No history of TIA's, stroke, CABLE SWAGER tumor, impaired sensorium, hemiplegia, paraplegia or quadraplegia. No neurological symptoms or problems. Respiratory: +COVID 07/13/21- resolved No history of current cough or dyspnea, or pneumonia in the past 6 weeks. No history of respiratory/pulmonary symptoms or problems. Cardiovascular: No history of HTN requiring medication, no history of angina, CHF, SC, cardiac surgery or stents. Denies rest pain, [...] and oriented (more content not included)... Normal [facility] Type and SCR (30D)on 021 ABO/RH(D) Positive [facility] CNPNon 06-29-2021 CNPN Telephone (AVPANE) TIA FLANAGAN ([id number]) 1975 F Date Time Provider Department 06/29/21 BENTON AMATO During your visit today, we recorded the following information about you: Maureen Jay PA-C 06/29/2021 1:16 PM S[address] Good afternoon Dr. Amato, Patient was scheduled for in person PACC appt at [facility] today. Patient did not check in for appt. I called patient to see if they were planning on coming. When I spoke with patient she was not aware of today's PACC appointment. She also stated that she was not aware that surgery was even scheduled yet. She lives in [place] and will need PACC rescheduled. She would like phone call from Dr. Amato's office to discuss upcoming surgery date etc. Thanks, Maureen Jay PA-C Preanest[facility] Allergies As of Date: 06/29/2021 Noted Allergy Reaction SULFA DRUGS (SULFA (SULFONAMIDE A*03/29/2012 16 - Unknown Date Reviewed: 06/28/2021 Reviewed by: Benton Amato MD - Fully Assessed Reason for Visit: PreOp Call [[id number]] Cmt: No Show for PACC Prescriptions as of 08/25/2021 - lxexyhhjhhr-A0-dnmvgelt ic acid 1,000 mg- 25 mcg-1.65 mg [...] Encounter Status:Closed by MAUREEN JAY on 08/25/21 [facility] XR HAND GENERAL 3V PA/LAT/OB L BILATon 04-02-2021 [facility] XR KNEE GENERAL 4V AP BOTH/P A BOTH/LAT/MERC BILATon 04-02-2021 [facility] US IRVING DOP LEG RTon 03-20-20 US [...] by: ANAM BLOOD Date: 2021-03-20 08:45 Normal [facility] Coding Summary.on 11-29-2019 Coding Summary. CODING DATE: [address] [facility] STATUS: Home (Routine DC) PAYOR: Self Pay [...] Correia Revised Date Saved: 11/29/2019 02:36 pm [facility] C Strep Screenon 11-28-2019 Strep Screen Microbiology PROCEDURE: Strep Screen Culture [R1] SOURCE: Swab BODY SITE: COLLECTED DATE/TIME: 11/26/2019 12:46 EDT RECEIVED DATE/TIME: 11/26/2019 13:24 EDT START DATE/TIME: 11/26/2019 13:24 EDT FREE TEXT SOURCE: Zach SAEZ, Nicola Serrano PA-C, Nicola FINAL REPORTS Final Report [] Verified Date/Time: 11/28/2019 08:30 EDT No Pathogenic Streptococcus Isolated Performing Locations R1: This test was performed at: [facility], [address] [place] [address], [phone] , , [facility] Comment on above: Performed By: #### 2 [id number] #### [facility] [address] [place] [address] ED Clinical Summaryon 2019 ED Clinical Summary [address] [address] ED Clinical Summary Person Information Name: TIA FLANAGAN [place] Age: 44 Years : 1975 Sex: Female Language: Russian PCP: MAXIMILIANO HERNANDEZ MD Marital Status: Visit [...] 11/26/2019 13:54:17 11/26/2019 13:54:17 11/26/2019 13:54:17 ADDRESS: [address] [place] [address] [facility] DOC NOTES: MEDICAL INFORMATION: Prescriptions Given: Medications to Continue with No Changes Other Medications fluoxetine 20 Milligram By Mouth every day. levothyroxine 75 Microgram By Mouth every day. PATIENT EDUCATION INFORMATION: Instructions: Viral Infections Follow up: With: Address: When: MAXIMILIANO HERNANDEZ [address] [place] [address] Business (1) In 3 days 11/29/2019 DIAGNOSIS: Viral URI Normal [facility] ED Note-Physicianon 11-26-19 ED Note-Physician Basic Information [...] Appropriate mood & affect. Integumentary: Warm, Dry, Rudy Medical Decision Making Patient appears well on [...] CHEMA In 3 days 11/29/2019 EDT [address] [place], [place] [address] Business (1) Additional Instructions: Patient Education Viral [...] UA WBC: 0-5 (11/26/19 12:46:00) UA Amorph Ix: Present (11/26/19 12:46:00) UA Mucous: Trace2 (11/26/19 [...] appear intact. Signed By: Mike Byrd DO [facility] Comment on above: Result Comment: Elec tronically [...] coughing. HOME CARE INSTRUCTIONS ? Only take bzcr-mxo-emrsptr or prescription medicines for pain, discomfort, diarrhea, [...] Document Reviewed: 11/29/2011 ExitCare? Patient Information ?2015 [employer]. This information is not intended to replace advice given to you by your health care provider. Make sure you discuss any questions you have with your health care provider. Normal [facility] ED Patient Summaryon 020 ED Patient Summary (Inserted Image. Eloisa ble to display) [place] [id number] Patient Discharge Instructions Person Information Name: TIA FLANAGAN Age: 44 Years Arrival Date: 11/26/2019 12:01:15 Discharge Diagnosis: Viral URI Primary Care Physician: MAXIMILIANO HERNANDEZ MD Provider Information Primary Provider: Mike Meyer DO Advanced Zoology Technical Officer:Nicola Serrano PA-C The exam and treatment you received in the Emergency Department were for an urgent problem and are not intended as complete care. It is important that you follow up with a doctor, nurse practitioner, or physician?s virtual customer assistant for ongoing care. If your symptoms [...] Follow-up Instructions: With: Address: When: MAXIMILIANO HERNANDEZ [address] [place] [address] [employer] (1) In 3 days 11/29/2019 In the event that this physician does not participate in your insurance network, please consult with your insurance company to find a nearby participating provider. Patient Education Materials: Viral Infections A MESSAGE TO ALL PATIENTS REGARDING OPIOIDS PRESCRIPTION OPIOIDS: WHAT YOU NEED TO KNOW Prescription opioids can be used to help relieve gbwkyrtk-zo-mbucha pain and are often prescribed following a [...] be struggling with addiction, tell your health personal carer and ask for guidance or call SAMHSA?S National Helpline at 3-860-928-MJYN. v Source: [place] Department of Health and Human Services/Center for Disease Control & Prevention [facility] Medications Given: Medication Dose Route No medications found. Medication Information: Medications to Continue with No Changes Other Medications fluoxetine 20 Milligram By Mouth every day. levothyroxine 75 Microgram By Mouth every day. Comment: Pharmacy Information: Thank you for choosing [facility] Patient Education Materials: Viral Infections A viral [...] coughing. HOME CARE INSTRUCTIONS ? Only take sbzf-goy-fcmiawt or prescription medicines for pain, discomfort, diarrhea, [...] Document Reviewed: 11/29/2011 ExitCare? Patient Information ?2014 [employer]. This information is not intended to replace advice given to you by your health care provider. Make sure you discuss any questions you have with your health care provider. I, TIA FLANAGAN , have received the following patient education materials/instructions and have verbalized understanding: Patient Education Materials: Viral Infections Follow-up Instructions: With: Address: When: MAXIMILIANO HERNANDEZ [address] [place] [address] Business (1) In 3 days 11/29/2019 Patient Signature Date Clinician/Nurse Signature _ Date 11/26/2019 13:54:[address] [facility] UA With Cult Reflexon 2019 Bilirubin Ql (U) Negative Normal Negative [facility] Comment on above: Performed By: #### 1 [id number] #### [facility] [address] [place] [address] Clarity (U) CLEAR Normal Clear [facility] Comment on above: Performed By: #### 1 [id number] #### [facility] [address] [place] [address] Color (U) YELLOW Normal Yellow [facility] Comment on above: Performed By: #### 1 [id number] #### [facility] [address] [place] [address] Crystals LM Ql (Urine sed) Present Normal [facility] Comment on above: Performed By: #### 1 [id number] #### [facility] [address] [place] [address] Epithelial cells.squamous LM.HPF (Urine sed) [#/Area] 0-2 Normal 0-2 [facility] Comment on above: Performed By: #### 1 [id number] #### [facility] [address] [place] [address] Glucose Test strip (U) [Mass/Vol] Negative Normal Negative [facility] Comment on above: Performed By: #### 1 [id number] #### [facility] [address] [place] [address] Hemoglobin Ql (U) Negative Normal Negative [facility] Comment on above: Performed By: #### 1 [id number] #### [facility] [address] [place] [address] Ketones (U) [Mass/Vol] Negative Normal Negative [facility] Comment on above: Performed By: #### 1 [id number] #### [facility] [address] [place] [address] Summers.plasma/Lit hium.RBC (Bld) [Mass ratio] 0-3 Normal 0-3 [facility] Comment on above: Performed By: #### 1 [id number] #### [facility] [address] [place] [address] Mucus Ql (Urine sed) TRACE Normal [facility] Comment on above: Performed By: #### 1 [id number] #### [facility] [address] [place] [address] Nitrite Ql (U) Negative Normal Negative [facility] Comment on above: Performed By: #### 1 [id number] #### [facility] [address] [place] [address] pH (U) 5.5 [pH] 5.0-9.0 [facility] Comment on above: Performed By: #### 1 [id number] #### [facility] [address] [place] [address] Protein (U) [Mass/Vol] Negative Normal Negative [facility] Comment on above: Performed By: #### 1 [id number] #### [facility] [address] [place] [address] Specific gravity (U) [Rel density] 1.015 1.005-1.030 [facility] Comment on above: Performed By: #### 1 [id number] #### [facility] [address] [place] [address] UA Spec Desc Clean Catch Normal [facility] Comment on above: Performed By: #### 1 [id number] #### [facility] [address] [place] [address] Urobilinogen Qn (U) 0.2 {Teresa'U}/dL Normal 0.0-1.0 [facility] Comment on above: Performed By: #### 1 [id number] #### [facility] [address] [place] [address] WBC Auto Ql (U) Negative Normal Negative [facility] Comment on above: Performed By: #### 1 [id number] #### [facility] [address] [place] [address] WBC LM.HPF (Urine sed) [#/Area] 0-5 Normal 0-5 [facility] Comment on above: Performed By: #### 1 [id number] #### [facility] [address] [place] [address] XR Chest Single Viewon 11-25 XR Chest [...] DO Transcribed by: JAYSON Technologist: YANELIS Gonzalez [facility] Encounters Encounter Date Encounter Type Care Provider Facility Start: 11-16-2023 End: 11-16-2023 ambulatory MAUREEN CAMPOS [facility] Start: 09-12-2023 End: 09-12-2023 ambulatory MIR STOUT Not Available Start: 09-12-2023 Chart abstracting Mir hanson DPM Work Phone: [facility] Start: 08-29-2023 End: 08-29-2023 ambulatory MIR STOUT Not Available Start: 01-17-2023 End: 01-17-2023 ambulatory BENTON AMATO Facility:[facility] Start: 10-18-2022 End: 10-18-2022 ambulatory Lauren Pepe RT(R) Radiology Comment on above: Radiology XR Start: 10-18-2022 Patient encounter procedure Lauren Pepe RT(R) [facility] [place] Start: 04-19-2022 End: 04-19-2022 ambulatory MAXIMILIANO HERNANDEZ II Facility:[facility] Start: 04-19-2022 End: 04-19-2022 Patient encounter procedure Anton Tariq PA-C Work Phone: Orthopaedics Comment on above: S/P right unicompart mental knee replacement (Primary Dx) Start: 01-18-2022 Refill Anton RAMOS-Antonian Work Phone: Orthopaedics Start: 12-28-2021 End: 12-28-2021 [...] 04-02-2021 Subsequent hospital visit by physician Philip [facility] Comment on above: Bilateral hand [...] Screening for malign ant neoplasm of colon [facility] Start: 09-15-2024 DIABETES SCREEN DIABETES SCREEN [facility] Start: 06-08-2024 Screening for malign ant neoplasm of breast Mammogram [facility] Start: 09-12-2023 End: 09-12-2023 Clinical Support 09/12/2023 2:00 PM EST Clinical Support [facility] [address] [place] [id number] Mir Stout DPM [address] [address] [facility] Start: 04-08-2023 Influenza vaccination C [facility] Start: 08-08-2022 DEPRESSION ASSESSMENT DEPRESSION ASS ESSMENT [facility] Start: 04-08-2022 Influenza vaccination C [facility] Start: 03-29-2022 Adult depression scr eening assessment DEPRESSION SCREENING [facility] Start: 04-08-2021 Influenza vaccination INFLUENZA (#1) [facility] Start: 2018 COLOGUARD (FIT-DNA) COLOGUARD (FIT-D NA) [facility] Start: 2018 Colonoscopy COLONOSCOPY [facility] Start: 2018 COLORECTAL CANCER SCREENING COLORECTAL CANCER SCREENING [facility] Start: [address] COLONOGRAPHY [facility] Start: 2018 FECAL OCCULT BLOOD FECAL OCCULT BLOO D [facility] Start: 2018 LIPID SCREEN LIPID SCREEN [facility] Start: 2018 SIGMOIDOSCOPY [facility]COPY [facility] [facility] Start: 2013 Mammography MAMMOGRAM [facility] Start: 2003 HPV TESTING HPV TESTING [facility] Start: 1994 PAP TESTING PAP TESTING [facility] Start: 1992 Urine microalbumin profile DTAP,TDAP ,TD (1 - Tdap) [facility] Start: 1991 ANNUAL PCP TEAM BLOCKER AND SEWER JOSE DISEASE VISIT ANNUAL PCP TEAM CHRONIC DISEASE VISIT [facility] Start: 1991 HIV SCREENING HIV SCREENING [facility] Start: 1979 PNEUMOCOCCAL (1 - PCV) PNEUMOCOCCAL (1 - PCV) [facility] Start: 1978 COVID-19 VACCINE (#1) COVID-19 VACCI NE (#1) [facility] Start: 1978 COVID-19 VACCINE (1) COVID-19 VACCIN E (1) [facility] Start: 1973 COVID-19 VACCINE (#1) COVID-19 VACCI NE (#1) [facility] Start: 1973 Screening for malign ant neoplasm of colon [facility] Immunizations Immunization Date Immunization Notes Care Provider Fernanda campo 07-09-2013 hepatitis B vaccine, pediatric or pediatric/adolescent dosage Mir Stout DPM Work Phone: [facility] 06-05-2013 hepatitis B vaccine, pediatric or pediatric/adolescent dosage Mir Stout DPM Work Phone: [facility] Payers Date Payer Category Payer Unknown MMO MMO [employer] [id number] 2021-Present [phone] [address] [place] [address] PPO [id number] 2021 Unknown [id number] 2020 Private Health Insurance [employer]AL[employer] OAP [id number] 2020-2021 [address] [place] [address] Open Access [id number] 2008 Managed Care HMO (unspecified) KELLIE HOPKINS [id number] 2008-Present [address] [place] [address] HMO [id number] 2008 Private Health Insurance [id number] 1973 Unknown [id number] 1973 Unknown [id number] 1973 Unknown [id number] 1973 Unknown [id number] 1973 Unknown [id number] 1973 Unknown [id number] 1973 Unknown [id number] 1959 Private Health Insurance [id number] 1959 Unknown [id number] Social History Date Type Detail Facility Start: 04-02-2021 End: 02-07-2023 Tobacco smoking status NHIS Ex-smoker [facility] End: 08-08-2017 History of tobacco use Current smoker [facility] End: 08-08-2017 History of tobacco use Cigarette Smoker [facility] Start: 04-02-2021 End: 02-07-2023 Tobacco use and exposure Smokeless tobacco non-user [facility] Start: 10-15-2021 End: 08-29-2023 Alcohol intake Ex-drinker (finding) [facility] Start: 07-27-2021 Tobacco Comment .5 ppd since age 14 [facility] Start: 1975 Sex Assigned At Female C [facility] Start: 03-03-2021 End: 04-19-2022 Exposure to SARS-CoV-2 (event) Not sure [facility] Start: 04-02-2021 Alcohol intake Current drinke r of alcohol (finding) [facility] Start: 04-02-2021 End: 02-08-2023 History of Social function [facility] Start: 04-02-2021 End: 02-08-2023 Tobacco use panel [facility] Adult Depression Scr eening Assessment 0 [facility] Start: 03-29-2021 Gender identity Identifies as female gender (finding) [facility] Start: 03-29-2021 Sexual orientation Heterosexual (nicholas pastrana) [facility] Within the last year , have you been afraid of your partner or ex-partner? No [facility] Do you belong to any clubs or organizations such as rastafarian groups, unions, fraternal or athletic groups, or [...] Cement Simplex B one High Viscosity - [id number] Start: 09-21-2021 Component Lamar Medium Cocrmo Femoral Phase 3 Twin Peg Unicompartmental - [id number] Start: 09-21-2021 Bearing Lamar 6 Tibial Fix Knee Right Lateral - [id number] Start: 09-21-2021 Clinical Notes 09-21-2021 to 01-17-2023 RT Samara(R) - 10/18/2022 9:48 AM EDTPatient InstructionsAnton Tariq PA-C - 04/19/2022 8:33 AM EDTTelephone Encounter - Anton Tariq PA-C - 01/18/2022 10:44 AM EDT Note Date & Type Note Facility 01-17-2023 Note HNO ID: [id number] Author: Benton Amato MD Service: ? Author Type: Physician Type: Progress Notes Filed: 01/17/2023 12:26 PM Note Text: see dictated note Benton Amato II, MD [facility] 01-17-2023 Note HNO ID: [id number] Author: Benton Amato MD Service: Orthopaedic Surgery Author Type: Physician Type: Progress Notes Filed: 01/20/2023 2:27 PM Note Text: [facility] [address] [place], [place] [address] CLINIC NOTE Department of Orthopaedics - Damon Amato II, M.D. NAME: TIA FLANAGAN CLINIC NO.: [id number] DATE OF SERVICE: 01/17/2023 CHIEF COMPLAINT: Recheck [...] II, M.D. Date Dictated: 01/17/2023 Date Typed: [facility] 01/17/2023 JOB# [id number] [facility] 01-17-2023 Note HNO ID: [id number] Author: RT Ivan(R) Service: ? Author Type: [...] RT Ivan(R) January 17, 2023 8:36 AM [facility] 10-18-2022 Note HNO ID: [id number] Author: Benton Amato MD Service: ? Author Type: Physician Type: Progress Notes Filed: 10/18/2022 12:17 PM Note Text: see dictated note Benton Amato II, MD [facility] 10-18-2022 Note HNO ID: [id number] Author: Benton Amato MD Service: Orthopaedic Surgery Author Type: Physician Type: Progress Notes Filed: 10/20/2022 8:33 AM Note Text: [facility] [address] [place], [place] [address] CLINIC NOTE Department of Orthopaedics - Damon Amato II, M.D. NAME: TIA FLANAGAN CLINIC NO.: [id number] DATE OF SERVICE: 10/18/2022 CHIEF COMPLAINT: Recheck of right knee. Right lateral ISABELL 09/21/2021 - 1 year plus. HISTORY: She is doing quite well and is able to work all day. 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 Her only [...] II, M.D. Date Dictated: 10/18/2022 Date Typed: [facility] 10/18/2022 JOB# [id number] [facility] 10-18-2022 Note HNO ID: [id number] Author: RT Samara(Laina) Service: ? Author Type: [...] RT Urbano(R) October 18, 2022 9:48 AM [facility] 10-18-2022 History of Presen t illness Narrative [...] 2022 9:48 AM documented in this encounter [facility] 04-19-2022 Note HNO ID: [id number] Author: Anton Tariq PA-C Service: ? Author Type: Physician Digital Sales Manager Type: Progress Notes Filed: 04/19/2022 8:58 AM [...] Tariq PA-C April 19, 2022 8:34 AM [facility] 04-19-2022 Instructions Anton Tariq PA-C - 04/19/2022 [...] legs 20 times. documented in this encounter [facility] 04-19-2022 History of Presen t illness Narrative [...] 2022 8:34 AM documented in this encounter [facility] 01-18-2022 Miscellaneous Notes [facility] patient notified Anton Tariq PA-C documented in this encounter [facility] 12-28-2021 History of Presen t illness Narrative see dictated note Benton Amato II, MD documented in this encounter [facility] 11-04-2021 History of Presen t illness Narrative SEE DICTATED NOT E Benton Amato II, MD documented in this encounter [facility] 09-21-2021 Note HNO ID: [id number] Author: Sanaz Mane ([employer]) Service: ? Author Type: ? Type: Plan [...] 5 mg tablet Commonly known as: FLEXERIL [id number] acid 1,000 mg- 25 mcg-1.65 mg Tab [...] or your Primary Care Provider. Sanaz Mane ([employer]) PAGER: anh September 21, 2021 4:27 PM [facility] 09-21-2021 Note HNO ID: [id number] Author: Monica Keller MD Service: Anesthesiology Author Type: Physician Type: Anesthesia Procedure Notes Filed: 09/21/2021 10:32 AM Note Text: ANESTHESIOLOGY PROCEDURE NOTE Peripheral Nerve Block General Information Procedure Start Time/Medication Administration: 09/21/2021 9:58 AM Procedure End time: 09/21/2021 10:00 AM Patient location during procedure: OR Timeout Performed Pre-procedure: timeout performed Consent Obtained: Yes Patient identity confirmed: 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 Author Type: Nurse Mathematics Department Chair Type: Anesthesia Procedure Notes Filed: 09/21/2021 10:05 AM Note Text: ANESTHESIOLOGY PROCEDURE NOTE Spinal Block General Information Procedure Start Time/Medication Administration: 09/21/2021 9:52 AM Patient location during procedure: OR Timeout Performed Pre-procedure: timeout performed Consent Obtained: Yes Patient identity confirmed: arm band and patient Reason for Block: primary surgical anesthetic Staffing TELEGRAPH PLANT MAINTAINER: Violeta Oakes APRN.TELEGRAPH PLANT MAINTAINER Performed by: TELEGRAPH PLANT MAINTAINER Preparation Sterility Preparation: hand hygiene performed prior [...] MPF SPINAL), 1.4 mL SIGNATURE: Violeta Oakes APRN.TELEGRAPH PLANT MAINTAINER PATIENT NAME: Tia Flanagan DATE: September 21, 2021 TIME: 10:04 AM CSN: [id number] [facility] 09-21-2021 Note HNO ID: [id number] Author: Brianna Daugherty RN Service: Nursing Author Type: Registered Nurse Type: Nursing Progress Note Filed: 09/21/2021 8:29 AM Note Text: Patient arrived to pre-op with a rash under her left breast, Anton RAMOS made aware. [facility] Evaluation note Diagnosis S/P right unicompartmental knee replacement- Primary Knee joint replacement by other means [facility] Diagnosis Status post knee replacement, unspecified laterality documented in this encounter [facility] note* Diagnosis S/P right unicompartmental knee replacement- Primary Knee joint replacement by other means [facility] Diagnosis S/P right unicompartmental knee replacement- Primary Knee joint replacement by other means [facility] Diagnosis Bilateral hand pain Pain in limb Chronic pain of both knees documented in this encounter [facility] for referral (narrative)* Diagnostic Procedure Only (Routine) - Closed Specialty Diagnoses / Procedures Referred By Luis Carlos t Referred To Contact XR IMAGING Diagnoses Chronic pain of both knees Procedures XR KNEE GENERAL 4V AP BOTH/PA BOTH/LAT/MERC BILAT KNEE AP-WGT/LAT/Kia Burr MD [address] [place] [address] Xr Imaging Referral ID Status Reason Start Date Expiration Date V isits Requested Visits Authorized Closed Auto-Generate d Referral 04/02/2021 05/02/2022 1 1 * Diagnostic Procedure Only (Routine) - Closed Specialty Diagnoses / Procedures Referred By Contac t Referred To Contact XR IMAGING Diagnoses Bilateral hand pain Procedures XR HAND GENERAL 3V PA/LAT/OBL BILAT X-RAY HAND MINIMUM 3 VIEWS Kia Burgess MD [address] [place] [address] Xr Imaging Referral ID Status Reason Start Date Expiration Date V isits Requested Visits Authorized Closed Auto-Generate d Referral 04/02/2021 05/02/2022 1 1 [facility] for visit Narrative* Diagnostic Procedure Only (Routine) - Closed Specialty Diagnoses / Procedures Referred By Contac t Referred To Contact XR IMAGING Diagnoses Chronic pain of both knees Procedures XR KNEE GENERAL 4V AP BOTH/PA BOTH/LAT/MERC BILAT KNEE AP-WGT/LAT/MERCHANT Kia Burgess MD [address] [place] [address] Xr Imaging Referral ID Status Reason Start Date Expiration Date V isits Requested Visits Authorized Closed Auto-Generate d Referral 04/02/2021 05/02/2022 1 1 [facility] Summary Purpose Family History No Family History Records FoundNo Family History Records FoundNo Family History Records FoundNo Family History Records FoundNo Family History Records FoundNo Family History Records FoundNo Family History Records Found Advance Directives No Advanced Directives Records FoundDocuments on File Type Date Recorded Patient Order Tracer Expl anation Advance Directive(s) 08/18/2021 11:27 AM Advance Directive(s) 07/14/2021 2:32 PM Additional Source Comments INFORMATION SOURCE (unrecogn ized section and content) DATE CREATED AUTHOR 12/23/2019 [facility] DATE CREATED AUTHOR AUTHOR'S ORGANIZ ATION 09/22/2021 [facility] DATE CREATED AUTHOR AUTHOR'S ORGANIZ ATION 12/12/2021 [facility] dical Specialist DATE CREATED AUTHOR AUTHOR'S ORGANIZ ATION 01/12/2022 [facility] DATE CREATED AUTHOR AUTHOR'S ORGANIZ ATION 01/21/2023 [facility] DATE CREATED AUTHOR AUTHOR'S ORGANIZ ATION 09/13/2023 [facility] CRE[facility] AUTHOR AUTHOR'S ORGANIZ ATION 11/17/2023 [facility] Source Comments (unrecognize d section and content) In the event this informatio n is protected by the Federal Confidentiality of Alcohol and Drug Abuse Patient Records regulations: The Federal rules restrict any use of the information to criminally investigate or prosecute any alcohol or drug abuse patient.[facility] the event this information is protected by the Federal Confidentiality of Alcohol and Drug Abuse Patient Records regulations: The Federal rules restrict any use of the information to criminally investigate or prosecute any alcohol or drug abuse patient.[facility] the event this information is protected by the Federal Confidentiality of Alcohol and Drug Abuse Patient Records regulations: The Federal rules restrict any use of the information to criminally investigate or prosecute any alcohol or drug abuse patient.[facility] the event this information is protected by the Federal Confidentiality of Alcohol and Drug Abuse Patient Records regulations: The Federal rules restrict any use of the information to criminally investigate or prosecute any alcohol or drug abuse patient.[facility] the event this information is protected by the Federal Confidentiality of Alcohol and Drug Abuse Patient Records regulations: The Federal rules restrict any use of the information to criminally investigate or prosecute any alcohol or drug abuse patient.[facility] the event this information is protected by the Federal Confidentiality of Alcohol and Drug Abuse Patient Records regulations: The Federal rules restrict any use of the information to criminally investigate or prosecute any alcohol or drug abuse patient.[facility] Reason for Visit (unrecogniz ed section and content) Reason Comments Established Patient Post Op Knee Replacement Reason Comments Follow Up Reason Comments Radiology XR Care Teams (unrecognized sec tion and content) Stage Technician Relationship Specialty Start Date End Date Maximiliano Hernandez II [address] [facility] [address] [place] [address] PCP - General Internal Medicine 09/21/21 Stage Technician Relationship Specialty Start Date End Date Maximiliano Hernandez II [address] [facility] [address] [place] [address] PCP - General Internal Medicine 09/21/21 Stage Technician Relationship Specialty Start Date End Date Maximiliano Hernandez II [address] [facility] [address] [place] [address] PCP - General Internal Medicine 09/21/21 Stage Technician Relationship Specialty Start Date End Date Maximiliano Hernandez II [address] [facility] [address] [place] [address] PCP - General Internal Medicine 09/21/21 Stage Technician Relationship Specialty Start Date End Date Maximiliano Gonsales PCP - General Family Medicine 09/03/11 09/20/21 Stage Technician Relationship Specialty Start Date End Date Maximiliano Hernandez MD [address] [facility] [address] [place] [address] PCP - General Internal Medicine 02/07/23 FOR [...] BE BASED ON THE PRIMARY CLINICAL RECORDS. [employer] [facility]. provides no warranty or guarantee of the accuracy or completeness of information in this document.
[2023-12-07 07:02] VITALS: BMI 24.0
[2023-12-07] MEDS: LACTATED RINGER'S SOLUTION 1,000 ML 50 ML IV (07:13)
--- NOTE | 2023-12-07 07:26 | P.GSPRC_ITS ---
Date of procedure: 12/07/23 Indications for Procedure: positive cologuard Pre-op diagnosis: positive cologuard Post-op diagnosis: other (esophagitis rule out Lyle's esophagus; normal colon) Procedure: Colonoscopy EGD with biopsy antrum and distal esophagus Findings: esophagitis rule out Lyle's esophagus GE junction Anesthesia: MAC Surgeon: Christiano Arredondo Procedure Summary: PROCEDURE: The patient was taken to the Endoscopy Suite, placed in the left lateral recumbent position, given IV sedation as above. the Olympus EGD scope was advanced under direct visualization into the posterior pharynx esophagus stomach through the pylorus into the 1st 2nd 3rd and 4th portions of the duoden um which were completely normal. The scope was slowly withdrawn and retroflexed on itself in the stomach looking the GE junction which was normal. There were no ulcers polyps or tumors seen in the stomach. Random biopsies of the antrum were taken to rule out gastritis and H. pylori. Hemostasis being maintained the scope was withdrawn to the distal esophagus where it appears she may have early Blanton ett's esophagus and biopsies were taken in four quadrants and submitted for pathology. The rest of the esophagus was completely normal. A rectal digital exam was performed. The sphincter tone was found to be normal. No rectal masses were appreciated. The Olympus video colonoscope was advanced under direct visualization to the rectum, sigmoid colon, descending colon, transverse colon and ascending colon to the ileocecal valve. The underside of the valve was seen. appendiceal lumen was visualized. Out prep was excellent. The scope was slowly withdrawn with air being desufflated as it was withdrawn. No gross tumors, polyps or diverticula were seen. The patient tolerated the procedure well and went to the Recovery Area in satisfactory condition. I recommend the patient return for screening colonoscopy in ten years unless problems. Estimated blood loss (mL): 1 Complications: No Condition: stable Disposition: PACU
[2023-12-07 08:36] VITALS: BP 155/108; PULSE 82; TEMP 36.4; O2SAT 99
[2023-12-07 08:51] VITALS: BP 161/107; PULSE 74; O2SAT 99
[2023-12-07 09:06] VITALS: BP 172/105; PULSE 66; O2SAT 96
[2023-12-07 09:22] VITALS: BP 150/100; PULSE 70; O2SAT 98
[2023-12-08 13:34] LABS: H Pylori Tissue, Urease Negative
== END 2023-12-07 09:22 | disposition home or self-care (01) ==
PROVIDERS: PCP Internal Medicine; Visit Provider Surgery
PROC: (CPT 813; principal; 2023-12-07 07:55)
DX: R19.5 Other fecal abnormalities (principal); K20.90 Esophagitis, unspecified without bleeding; K21.00 Gastro-esophageal reflux disease with esophagitis, without bleeding; E03.9 Hypothyroidism, unspecified; Z85.820 Personal history of malignant melanoma of skin; Z90.710 Acquired absence of both cervix and uterus; Z87.891 Personal history of nicotine dependence
CPT/HCPCS: 43239; 45378; 87077; 88305; 99999; J2704

== ENCOUNTER 2024-11-14 09:52 | Outpatient (OUT) | payer OTHER, SELFPAY ==
--- NOTE | 2024-11-14 09:55 | MM_ITS ---
Patient Name: SHAMAR MINOR MR#: [id number] : 1975 Exam Date: 11/14/2024 Ordering Doctor: DR NOLBERTO BEAR M.D. RADIOLOGY REPORT PROCEDURE: MM TOMOSYNTHESIS SCREENING BI COMPARISON: MM TOMOSYNTHESIS SCREENING BI, 06/08/2023. MG MAMM SCREEN 3D RITCHIE CAD, 11/23/2021. MG MAMM SCREEN 3D RITCHIE CAD, 10/31/2020. MG MAMM RITCHIE SCRN W CAD DIG, 02/28/2013. INDICATIONS: Screening Calculator Name NCI Breast Cancer Risk Assessment Tool 5 Year Breast Cancer Risk 1.10% Lifetime Breast Cancer Risk 9.70% Personal Breast Cancer No Personal Ovarian Cancer No Treatments Excision Interferon for year. Family Cancers Mother with skin cancer cancer at age 55; Uncle-maternal with liver cancer at age 65; Grandfather-maternal with lung cancer at age ~50; Uncle-maternal with unknown cancer at age 55. LOCATION: [facility] BREAST COMPOSITION: There are scattered areas of fibroglandular density. FINDINGS: DIAGNOSTIC CATEGORY 1--NEGATIVE. LEFT BREAST: No significant suspicious finding. RIGHT BREAST: No significant suspicious finding. RECOMMENDATIONS: ROUTINE MAMMOGRAM AND CLINICAL EVALUATION IN 12 MONTHS. PLEASE NOTE: A NORMAL MAMMOGRAM DOES NOT EXCLUDE THE POSSIBILITY OF BREAST CANCER. A CLINICALLY SUSPICIOUS PALPABLE LUMP SHOULD BE BIOPSIED. Dictated by: Basilio Valenzuela DO on 11/14/2024 at 13:22 Approved by: Basilio Valenzuela DO on 11/14/2024 at 13:22
== END 2024-11-14 09:53 | disposition home or self-care (01) ==
LOC: MAMMO 09:52
PROVIDERS: PCP Internal Medicine; Visit Provider Internal Medicine
DX: Z12.31 Encounter for screening mammogram for malignant neoplasm of breast (principal); Z80.1 Family history of malignant neoplasm of trachea, bronchus and lung; Z80.8 Family history of malignant neoplasm of other organs or systems
CPT/HCPCS: 77063; 77067

== ENCOUNTER 2025-02-13 15:37 | Outpatient (REF) | payer OTHER, SELFPAY ==
--- OUTSIDE RECORDS SUMMARY | 2025-02-13 10:00 | XMS_ITS | Encounter Summary ---
Author Organization [facility] Address [address] [facility] [place] [address] Care Team Providers Care Interstate Bus Driver Name Role Phone Maximiliano Hernandez MD Primary Care Provider [phone] Reason for Visit * Reason Comments Well Women Visit Encounter Details Date Type Department Care Team (Late st Contact Info) Description 02/13/2025 10:00 AM EDT Office Visit [facility] [address] [facility] [address] Maia Aguirre PA [address] [facility] [address] [place], [facility] Well woman exam with routine gynecological exam; Postmenopausal state Social History Tobacco Use Types Packs/Day Years Used Date Smoking Tobacco: Former Cigarettes Q uit: 2018 Smokeless Tobacco: Never Alcohol Use Standard Drinks/Week Comments Not Currently 0 (1 standard drink = 0.6 oz pur e alcohol) Humiliation, Afraid, Rape, and Kick questionnair e Answer Date Recorded Within the last year, have y ou been afraid of your partner or ex-partner? No 02/08/2023 Within the last year, have y ou been humiliated or emotionally abused in other ways by your partner or ex-partner? No 02/08/2023 Within the last year, have y ou been kicked, hit, slapped, or otherwise physically hurt by your partner or ex-partner? No 02/08/2023 Sexually Abused Not on file 02/08/2023 Social Connection and Isolat ion Panel [NHANES] Answer Date Recorded In a typical week, how many times do you talk on the phone with family, friends, or neighbors? More than three times a week 02/08/2023 How often do you get togethe r with friends or relatives? Twice a week 02/08/2023 How often do you attend chur ch or presybeterian services? More than 4 times per year 02/08/2023 Do you belong to any clubs o r organizations such as protestant groups, unions, fraternal or athletic groups, or school groups? Yes 02/08/2023 How often do you attend meet ings of the clubs or organizations you belong to? 1 to 4 times per year 02/08/2023 Are you , , di vorced, , never , or living with a partner? 02/08/2023 AUDIT-C Answer Date Recorded Q1: How often do you have a drink containing alc ohol? Patient declined 02/08/2023 Q2: How many drinks containi ng alcohol do you have on a typical day when you are drinking? Patient declined 02/08/2023 Q3: How often do you have si x or more drinks on one occasion? Patient declined 02/08/2023 Overall Financial Resource Strain (CARDIA) Answe r Date Recorded How hard is it for you to pa y for the very basics like food, housing, medical care, and heating? Not very hard 02/08/2023 PHQ-2 Answer Date Recorded Patient Health Questionnaire-2 Score 0 02/09/2023 [facility] Answer Date Recorded Do you feel stress - tense, restless, nervous, or anxious, or unable to sleep at night because your mind is troubled all the time - these days? Not at all 02/08/2023 Exercise Vital Sign Answer Date Recorde d On average, how many days pe r week do you engage in moderate to strenuous exercise (like a brisk walk)? 6 days 02/08/2023 On average, how many minutes do you engage in exercise at this level? 150+ min 02/08/2023 Hunger Vital Sign Answer Date Recorded Within the past 12 months, y ou worried that your food would run out before you got the money to buy more. Never true 02/09/20 23 Within the past 12 months, t he food you bought just didn't last and you didn't have money to get more. Never true 02/08/2023 PRAPARE - Transportation Answer Date Re corded In the past 12 months, has l ack of transportation kept you from medical appointments or from getting medications? No 11/2022 In the past 12 months, has l ack of transportation kept you from meetings, work, or from getting things needed for daily living? No 02/08/2023 Housing Stability Vital Sign Answer Pavel e Recorded In the last 12 months, was t here a time when you were not able to pay the mortgage or rent on time? No 02/08/2023 Number of Places Lived in the Last Year Not on f ile 02/08/2023 In the last 12 months, was t here a time when you did not have a steady place to sleep or slept in a intermediate (including now)? No 02/08/2023 Comments Unknown Sex and Gender Information Value Date Recorded Sex Assigned at Not on file Legal Sex Female 6:55 PM EDT Gender Identity Not on file Sexual Orientation Not on file documented as of this encounter Last Filed Vital Signs Vital Sign Reading Time Taken Comments Blood Pressure 126/80 02/13/2025 10:25 AM EDT Pulse - - Temperature - - Respiratory Rate - - Oxygen Saturation - - Inhaled Oxygen Concentration - - Weight 73.4 kg (161 lb 12.8 oz) 025 10:25 AM EDT Height - - Body Mass Index 25.72 08/29/2024 4:22 PM EST documented in this encounter Progress Notes * RACHEL Live - 02/13/2025 10:00 AM EDT Reason for Appointment: Patient ID: Tia Flanagan is a 49 y.o. female who presents for Well Women Visit Patient presents today for Annual Exam. MEDICATIONS Current Outpatient Medications Medication Instructions cyclobenzaprine (FLEXERIL) 10 mg, Oral, 3 times daily PRN, Take 1 to 2 tablets per dose EPINEPHrine (EPIPEN) 0.3 mg, Injection, Once FLUoxetine (PROZAC) 20 mg, Oral, Daily ibuprofen 600 mg, 3 times daily levothyroxine (SYNTHROID, LEVOXYL) 75 mcg, Oral, Daily before breakfast omeprazole (PRILOSEC) 40 mg, Oral, Daily ALLERGIES Allergies Allergen Reactions Bee Pollen Swelling Oxycodone Itching ok if used with benadryl norco ok Sulfacetamide Rash PROBLEMS Active Ambulatory Problems Diagnosis Date Noted Acquired hypothyroidism 02/07/2023 Chondromalacia of knee, right 02/07/2023 DDD (degenerative disc disease), cervical 02/07/2023 Degenerative disc disease, lumbar 02/07/2023 Depression 02/07/2023 Gastro-esophageal reflux disease without esophagitis 02/07/2023 History of hysterectomy 02/07/2023 Intermediate stage nonexudative age-related macular degeneration of both eyes 02/07/2023 Menopausal vasomotor syndrome 02/07/2023 Osteoarthritis of first carpometacarpal joint 02/07/2023 Other chronic pain 02/07/2023 Unilateral primary osteoarthritis, right knee 02/07/2023 Unspecified tear of unspecified meniscus, current injury, right knee, subsequent encounter 02/07/2023 Resolved Ambulatory Problems Diagnosis Date Noted No Resolved Ambulatory Problems Past Medical History: Diagnosis Date Disease of thyroid gland GERD (gastroesophageal reflux disease) Melanoma (HCC) HISTORY PAST MEDICAL HISTORY SOCIAL HISTORY Past Medical History: Diagnosis Date DDD (degenerative disc disease), cervical Depression Disease of thyroid gland GERD (gastroesophageal reflux disease) Melanoma (HCC) Social History Tobacco Use Smoking status: Former Current packs/day: 0.00 Types: Cigarettes Quit date: 2017 Years since quittin.5 Smokeless tobacco: Never Substance Use Topics Alcohol use: Not Currently Drug use: Not on file FAMILY HISTORY No family history on file. SURGICAL HISTORY Past Surgical History: Procedure Laterality Date COLONOSCOPY W/ POLYPECTOMY HYSTERECTOMY KNEE ARTHROSCOPY W/ MENISCECTOMY Right 2017 REVIEW OF SYSTEMS Review of Systems: Review of Systems Constitutional: Negative. HENT: Negative. Eyes: Negative. Respiratory: Negative. Cardiovascular: Negative. Gastrointestinal: Negative. Genitourinary: Negative. Musculoskeletal: Negative. Skin: Negative. Neurological: Negative. All other systems reviewed and are negative. Hematological: Negative. Endocrine: Negative. Allergic/Immunologic: Negative. OBJECTIVE Objective: Physical Exam Constitutional: Appearance: Normal appearance. Genitourinary: Right Adnexa: not tender and no mass present. Left Adnexa: not tender and no mass present. No cervical discharge. Breasts: Breasts are soft. Right: Normal. Left: Normal. HENT: Head: Normocephalic. Nose: Nose normal. Mouth/Throat: Mouth: Mucous membranes are moist. Cardiovascular: Rate and Rhythm: Normal rate. Pulmonary: Effort: Pulmonary effort is normal. Abdominal: General: Bowel sounds are normal. Palpations: Abdomen is soft. Musculoskeletal: General: Normal range of motion. Cervical back: Normal range of motion. Neurological: General: No focal deficit present. Mental Status: She is alert. Skin: General: Skin is warm and dry. Psychiatric: Mood and Affect: Mood normal. Vitals and nursing note reviewed. Exam conducted with a packing and stamping machine operator present. Vitals: Estimated body mass index is 25.72 kg/m?? as calculated from the following: Height as of 08/29/24: 5' 6.5 . Weight as of this encounter: 161 lb 12.8 oz. BP: 126/80 No LMP recorded. ASSESSMENT & PLAN ICD-10-CM 1. Well woman exam with routine gynecological exam Z01.419 THIN PREP TIS PAP AND HR HPV DNA 2. Postmenopausal state Z78.0 DEXA bone density Annual Exam: Patient presents today for an annual exam. Patient states she is doing well and has no complaints. Pap was obtained without difficulty. Orders Placed This Encounter Procedures DEXA bone density Follow Up: Patient is to return in one year for annual unless needed otherwise. Documented by RACHEL Live on behalf of: RACHEL [facility] documented in this encounter Plan of Treatment Upcoming Encounters Date Type Department Care Team (Late st Contact Info) Description 03/12/2026 10:00 AM EDT Office Visit [facility] [address] [facility] [phone] Maia Aguirre PA [address] [facility] [place] [address] Scheduled Orders Name Type Priority Associated Diagnoses Orde r Schedule DEXA bone density Imaging Routine Postmenopausal state Expected: 02/13/2025 (Approximate), Expires: 02/13/2026 THIN PREP TIS PAP AND HR HPV DNA Pathology and Cytology Routine Well woman exam with routine gynecological exam Ordered: 02/13/2025 documented as of this encounter Visit Diagnoses Diagnosis Well woman exam with routine gynecological exam Routine gynecological examination Postmenopausal state Asymptomatic postmenopausal status (age-related) (natural) documented in this encounter Care Teams Interstate Bus Driver Relationship Specialty Start Date End Date Maximiliano Hernandez MD [address] [facility] [address] [place] [address] PCP - General Internal Medicine 02/07/23 documented as of this encounter
--- OUTSIDE RECORDS SUMMARY | 2025-02-13 15:40 | XMS_ITS | Encounter Summary ---
Author Organization [facility] Address [address] [facility] [place] [address] Care Team Providers Care Director Corporate Security Name Role Phone Maximiliano Hernandez MD Primary Care Provider [phone] Encounter Details Date Type Department Care Team (Late st Contact Info) Description 01/17/2023 Clinisync Result Encounter [facility] External Department Unsolicited Maximiliano Hernandez MD [address] [place] [address] [address] [place] [address] Social History Tobacco Use Types Packs/Day Years Used Date Smoking Tobacco: Never Assessed Comments Unknown Sex and Gender Information Value Date Recorded Sex Assigned at Not on file Legal Sex Female 6:55 PM EDT Gender Identity Not on file Sexual Orientation Not on file documented as of this encounter Plan of Treatment Upcoming Encounters Date Type Department Care Team (Late st Contact Info) Description 03/12/2026 10:00 AM EDT Office Visit [facility] OB [address] [facility] [id number] Maia Aguirre PA [address] [facility] [place] [address] documented as of this encounter Procedures Procedure Name Priority Date/Time Associated Diagnosis Comments XR KNEE 3V AP/LAT/MERCHANT RT 01/17/2023 8:36 AM EDT documented in this encounter Results * XR KNEE 3V AP/LAT/MERCHANT RT (01/17/2023 8:36 AM EDT) Anatomical Region Laterality Modality Other 01/17/2023 8:36 AM EDT Narrative 01/17/2023 9:51 AM EDT * * *Final Report* * * DATE [...] other significant abnormality. IMPRESSION: NO SIGNIFICANT CHANGE Office Clinician: DEVON Transcribe Date/Time: Jan 17 2023 9:48A Dictated by : KARLA PURI MD This examination was interpreted and the report reviewed and electronically signed by: KARLA PURI MD on Jan 17 2023 9:49AM EST [id number] Procedure Note Radiology, Radiologist, - 01/17/2023 * * *Final Report* * * DATE [...] other significant abnormality. IMPRESSION: NO SIGNIFICANT CHANGE Office Clinician: DEVON Transcribe Date/Time: Jan 17 2023 9:48A Dictated by : KARLA PURI MD This examination was interpreted and the report reviewed and electronically signed by: KARLA PURI MD on Jan 17 2023 9:49AM EST [id number]^ACN us Maximiliano Hernandez MD [facility] Final Result documented in this encounter Visit Diagnoses Not on filedocumented in this encounter Care Teams Director Corporate Security Relationship Specialty Start Date End Date Maximiliano Hernandez MD [address] [facility] [address] [place] [address] PCP - General Internal Medicine 02/07/23 documented as of this encounter
--- OUTSIDE RECORDS SUMMARY | 2025-02-13 15:40 | XMS_ITS | Encounter Summary ---
Author Organization [facility] Address [address] [facility] [place] [address] Care Team Providers Care Grease Press Helper Name Role Phone Maximiliano Hernandez MD Primary Care Provider [phone] Encounter Details Date Type Department Care Team (Late st Contact Info) Description 11/16/2023 Abstract [facility] [address] [address] [place] [address] Maximiliano Hernandez MD [address] [facility] [address] [place], [place] [id number] Social History Tobacco Use Types Packs/Day Years [...] 02/08/2023 How often do you attend chur or yazidism services? More than 4 times per year 02/08/2023 Do you belong to any clubs o r organizations such as pentecostalism groups, unions, fraternal or athletic groups, or [...] Recorded Patient Health Questionnaire-2 Score 0 02/09/2023 [facility] - Occupational Stress Questionnaire Answer Date Recorded [...] place to sleep or slept in a custodial (including now)? No 02/08/2023 Comments Unknown Sex [...] EDT Office Visit [facility] OB [address] [facility] [place] [address] Maia Aguirre PA [address] [facility] [place] [address] documented as of this encounter Visit Diagnoses Not on filedocumented in this encounter Care Teams Grease Press Helper Relationship Specialty Start Date End Date Maximiliano Hernandez MD [address] [facility] 110 [place] [address] PCP - General Internal Medicine 02/07/23 documented as of this encounter
--- OUTSIDE RECORDS SUMMARY | 2025-02-13 15:40 | XMS_ITS | Encounter Summary ---
Author Organization [employer] Address [id number] [address] [place] [address] Care Team Providers Care Patient Care Coordinator Name Role Phone Maximiliano Hernandez MD Primary Care Provider [phone] Reason for Visit * Reason Comments Med Change Request Encounter Details Date Type Department Care Team (Late st Contact Info) Description 03/25/2024 Refill [facility] [address] [place] [phone] Maureen Moran, [facility] [address] [place], [place] [id number] Gastroesophageal reflux disease, unspecified whether esophagitis present Social History Tobacco Use Types Packs/Day Years Used Date Smoking Tobacco: Former Cigarettes Smokeless Tobacco: Never Alcohol Use Standard Drinks/Week Comments Yes 0 (1 standard drink = 0.6 oz pur e alcohol) few drinks daily Childcare Answer Date Recorded Childcare Unknown 01/17/2019 Employment Answer Date Recorded Employment Unknown 01/17/2019 Comments Unknown Sex and Gender Information Value Date Recorded Sex Assigned at Not on file Legal Sex Female 12:08 PM EDT Gender Identity Not on file Sexual Orientation Not on file documented as of this encounter Plan of Treatment Not on file documented as of this encounter Visit Diagnoses Diagnosis Gastroesophageal reflux disease, unspecified whether esophagitis present documented in this encounter Care Teams Patient Care Coordinator Relationship Specialty Start Date End Date Maximiliano Hernandez MD [address] [facility] [address] [place] [id number] PCP - General Internal Medicine 10/26/23 documented as of this encounter
--- OUTSIDE RECORDS SUMMARY | 2025-02-13 15:40 | XMS_ITS | Clinical Summary ---
Author Organization [facility] Address [address] [place] [address] Care Team Providers Care Filler Feeder Name Role Phone Maximiliano Hernandez MD Primary Care Provider [phone] Allergies Active Allergy Reactions Criticality Noted Date Comments Bee Pollen Swelling Medium 07/06/2021 Oxycodone Itching 09/21/2021 ok if used with benadryl norco ok Sulfacetamide Rash Low 02/07/2023 Medications ibuprofen 600 MG tablet Take 600 mg by mouth in the morning and 600 mg in the evening and 600 mg before bedtime. Active cyclobenzaprine (Flexeril) 5 MG tabletIndications: Muscle spasm of back Take 2 tablets (10 mg) by mouth 3 (three) times a day as needed for muscle spasms. Take 1 to 2 tablets per dose 120 tablet 2 3 Active FLUoxetine (PROzac) 20 MG capsuleIndications :Major depressive disorder with single episode, in full remission Take 1 capsule (20 mg) by mouth Daily 100 capsule 3 4 Active levothyroxine (Synthroid, Levoxyl) 75 MCG tabletIndications: Acquired hypothyroidism Take 1 tablet (75 mcg) by mouth in the morning. Take before meals. 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 025 Discontin ued(Reord er) Active Problems Problem Noted Date Diagnosed Date Acquired hypothyroidism 02/07/2023 Chondromalacia of knee, right 02/07/2023 DDD (degenerative disc disease), cervical 2022 Degenerative disc disease, lumbar 02/07/2023 Depression 02/07/2023 Gastro-esophageal reflux disease without esophag itis 02/07/2023 History of hysterectomy 02/07/2023 Intermediate stage nonexudat paige age-related macular degeneration of both eyes 02/07/2023 Menopausal vasomotor syndrome 02/07/2023 Osteoarthritis of first carpometacarpal joint Other chronic pain 02/07/2023 Unilateral primary osteoarthritis, right knee Unspecified tear of unspecif ied meniscus, current injury, right knee, subsequent encounter 02/07/2023 Encounters Date Type Department Care Team Description 02/13/2025 10:00 AM EDT Office Visit [facility] [address] [place] [address] Maia Aguirre PA Well woman exam with routine gynecological exam; Postmenopausal state 02/13/2025 Bamboo flowsheet [facility] [address] [place] [address] Maia Aguirre PA 01/22/2025 Refill [facility] [address] [address] [place] [address] Sandrita Flanagan MA 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 More than 4 times per year 02/08/2023 Do you belong to any clubs o r organizations such as jew groups, unions, fraternal or athletic groups, or [...] Recorded Patient Health Questionnaire-2 Score 0 02/09/2023 [facility] of Occupat ional Health - Occupational Stress [...] place to sleep or slept in a residential (including now)? No 02/08/2023 Comments Unknown Sex and Gender Information Value Date Recorded Sex Assigned at Not on file Legal Sex Female 6:55 PM EDT Gender Identity Not on file Sexual Orientation Not on file Last Filed Vital Signs Vital Sign Reading Time Taken Comments Blood Pressure 126/80 02/13/2025 10:25 AM EDT Pulse 84 06/13/2024 9:43 AM EST Temperature - - Respiratory Rate 18 08/29/2024 4:22 PM EST Oxygen Saturation 98% 06/13/2024 9:43 AM EST Inhaled Oxygen Concentration - - Weight 73.4 kg (161 lb 12.8 oz) 025 10:25 AM EDT Height 168.9 cm (5' 6.5 ) 08/29/2024 4:22 PM EST Body Mass Index 25.72 08/29/2024 4:22 PM EST Plan of Treatment Upcoming Encounters Date Type Department Care Team (Late st Contact Info) Description 03/12/2026 10:00 AM EDT Office Visit [facility] [address] [place] [address] Maia Aguirre PA [address] [facility] [place] [address] Health Maintenance Due Date Last Done Comments CT Colonography 1975 Colonoscopy 1975 FIT 1975 FOBT 1975 Sigmoidoscopy 1975 Influenza Vaccine (#1) 2025 Mammogram 11/14/2025 11/14/2024, 11/0 08/2022, 11/23/2021, Additional history exists Colorectal Cancer Screening 03/20/2026 FIT-DNA 03/20/2026 03/20/2023 Procedures Procedure Name Priority Date/Time Associated Diagnosis Comments MM TOMOSYNTHESIS SCREENING BI 11/14/2024 1:22 PM EDT LAB COLOGUARD COLON CANCER SCREEN Routine 03/20/2023 3:00 PM EDT Screening for colorectal cancer from Last 3 Months or Most Recently Relevant to Health Maintenance Results * MM TOMOSYNTHESIS SCREENING BI (11/14/2024 1:22 PM EDT) Anatomical Region Laterality Modality Other 11/14/2024 1:22 PM EDT Narrative 11/14/2024 1:24 PM EDT The [address] [address] Mammography Report Signed Patient: SHAMAR FLANAGAN MR#: [id number] : 1975 Acct:[id number] Age/Sex: 49 / F ADM Date: 11/14/24 Loc: MAMMO Attending Dr: MAXIMILIANO HERNANDEZ Ordering Physician: MAXIMILIANO HERNANDEZ Results: Date of Service: 11/14/24 Follow Up: Procedure(s): MM tomosynthesis screening BI Accession Number(s): [id number] cc: MAXIMILIANO HERNANDEZ Patient Name: SHAMAR FLANAGAN MR#: [id number] : 1975 Exam Date: 11/14/2024 Ordering Doctor: DR MAXIMILIANO HERNANDEZ M.D. RADIOLOGY REPORT PROCEDURE: MM TOMOSYNTHESIS SCREENING BI COMPARISON: MM TOMOSYNTHESIS SCREENING BI, 06/08/2023. MG MAMM SCREEN 3D RITCHIE CAD, 11/23/2021. MG MAMM SCREEN 3D RITCHIE CAD, 10/31/2020. MG MAMM RITCHIE SCRN W CAD DIG, 02/28/2013. INDICATIONS: Screening Calculator Name NCI Breast Cancer Risk Assessment Tool 5 Year Breast Cancer Risk 1.10% Lifetime Breast Cancer Risk 9.70% Personal Breast Cancer No Personal Ovarian Cancer No Treatments Excision Interferon for year. Family Cancers Mother with skin cancer cancer at age 55; Uncle-maternal with liver cancer at age 65; Grandfather-maternal with lung cancer at age 50; Uncle-maternal with unknown cancer at age 55. LOCATION: The [facility] BREAST COMPOSITION: There are scattered areas of fibroglandular density. FINDINGS: DIAGNOSTIC CATEGORY 1--NEGATIVE. LEFT BREAST: No significant suspicious finding. RIGHT BREAST: No significant suspicious finding. RECOMMENDATIONS: ROUTINE MAMMOGRAM AND CLINICAL EVALUATION IN 12 MONTHS. PLEASE NOTE: A NORMAL MAMMOGRAM DOES NOT EXCLUDE THE POSSIBILITY OF BREAST CANCER. A CLINICALLY SUSPICIOUS PALPABLE LUMP SHOULD BE BIOPSIED. Dictated by: Basilio Valenzuela DO on 11/14/2024 at 13:22 Approved by: Basilio Valenzuela DO on 11/14/2024 at 13:22 Dictated By: Basilio Valenzuela M.D. Signed By: 11/14/24 1324 DD/ 1322 TD/TT: Vegetable Washing Machine Operator: Procedure Note Radiology, Radiologist, - 11/14/2024 [place] [address] Mammography Report Signed Patient: SHAMAR FLANAGAN AMR#: [id number] : 1975Acct:[id number] Age/Sex: 49 / FADM Date: 11/14/24 Loc: MAMMO Attending Dr: MAXIMILIANO HERNANDEZ Ordering Physician: MAXIMILIANO HERNANDEZResults: Date of Service: 11/14/24Follow Up: Procedure(s): MM tomosynthesis screening BI Accession Number(s): [id number] cc: YASIR HERNANDEZEL Patient Name: SHAMAR FLANAGAN MR#: [id number] : 1975 Exam Date: 11/14/2024 Ordering Doctor: DR MAXIMILIANO HERNANDEZ M.D. RADIOLOGY REPORT PROCEDURE: MM TOMOSYNTHESIS SCREENING BI COMPARISON: MM TOMOSYNTHESIS SCREENING BI, 06/08/2023. MG MAMM [id number] RITCHIE CAD, 11/23/2021. MG MAMM SCREEN 3D RITCHIE CAD, 10/31/2020. MG MAMM BILSCRN W CAD DIG, 02/28/2013. INDICATIONS: Screening Calculator Name NCI Breast Cancer Risk Assessment Tool 5 Year Breast Cancer Risk 1.10% Lifetime Breast Cancer Risk 9.70% Personal Breast Cancer No Personal Ovarian Cancer No Treatments Excision Interferon for year. Family Cancers Mother with skin cancer cancer at age 55;Uncle-maternal with liver cancer at age 65; Grandfather-maternal with lung cancer at age 50; Uncle-maternal with unknown cancer at age 55. LOCATION: [facility] BREAST COMPOSITION: There are scattered areas of fibroglandulardensity. FINDINGS: DIAGNOSTIC CATEGORY 1--NEGATIVE. LEFT BREAST: No significant suspicious finding. RIGHT BREAST: No significant suspicious finding. RECOMMENDATIONS: ROUTINE MAMMOGRAM AND CLINICAL EVALUATION IN 12 MONTHS. PLEASE NOTE: A NORMAL MAMMOGRAM DOES NOT EXCLUDE THE POSSIBILITY OFBREAST CANCER. A CLINICALLY SUSPICIOUS PALPABLE LUMP SHOULD BE BIOPSIED. Dictated by: Basilio Valenzuela DO on 11/14/2024 at 13:22 Approved by: Basilio Valenzuela DO on 11/14/2024 at 13:22 Dictated By: Basilio Valenzuela M.D. Signed By:11/14/24 1324 DD/ 1322 TD/TT: Vegetable Washing Machine Operator: Maximiliano Hernandez MD [facility] Final Result * (ABNORMAL) Cologuard?? colon cancer screening (03/20/2023 3:00 PM EDT) NONINV COLON CA DNA+OCC BLD SCRN STL-IMP Positive( A) Negative 03/29/2023 2:28 PM EDT [facility] (CLIA #:[id number]) Comment: POSITIVE TEST RESULT. A positive Cologuard result should be followed with a colonoscopy or visual examination of the colon. The normal value (reference range) for this assay is negative. TEST DESCRIPTION: Composite algorithmic analysis of stool DNA-biomarkers with hemoglobin immunoassay. Quantitative values of individual biomarkers are not reportable and are not associated with individual biomarker result reference ranges. Cologuard is intended for colorectal cancer screening of adults of either sex, 45 years or older, who are at average-risk for colorectal cancer (CRC). Cologuard has been approved for use by the U.S. FDA. The performance of Cologuard was established in a cross sectional study of average-risk adults aged 50-84. Cologuard performance in patients ages 45 to 49 years was estimated by sub-group analysis of near-age groups. Colonoscopies performed for a positive result may find as the most clinically significant lesion: colorectal cancer [4.0%], advanced adenoma (including sessile serrated polyps greater than or equal to 1cm diameter) [20%] or non- advanced adenoma [31%]; or no colorectal neoplasia [45%]. These estimates are derived from a prospective cross-sectional screening study of 10,000 individuals at average risk for colorectal cancer who were screened with both Cologuard and colonoscopy. (Anders Bentley al, N Engl J Med 2014;370(14):0404-4726.) Cologuard may produce a false negative or false positive result (no colorectal cancer or precancerous polyp present at colonoscopy follow up). A negative Cologuard test result does not guarantee the absence of CRC or advanced adenoma (pre-cancer). The current Cologuard screening interval is every 3 years. ([place] [employer] Society and U.S. Multi-Society Task Force). Cologuard performance data in a 10,000 patient pivotal study using colonoscopy as the reference method can be accessed at the following location: www.exactlabs.com/results. Additional description of the Cologuard test process, warnings and precautions can be found at www.cologuard.com. Stool specimen (specimen) 03/20/2023 3:00 PM EDT 03/22/2023 2:45 PM EDT Maximiliano Hernandez MD LAB MOLECULAR DIAGNOSTICS JAYLIN CAMILO Final Result .[employer] (CLIA #:[id number]) [address] [place] [id number], [facility] (CLIA #:[id number]) [address] [place] [id number] from Last 3 Months or Most Recently Relevant to Health Maintenance Insurance [employer] Care Teams Filler Feeder Relationship Specialty Start Date End Date Maximiliano Hernandez MD [address] [facility] [address] [place] [address] PCP - General Internal Medicine 02/07/23
--- OUTSIDE RECORDS SUMMARY | 2025-02-13 15:40 | XMS_ITS | Clinical Summary ---
Author Organization [facility] tem Address [id number] [address] [place] [address] Care Team Providers Care Application Systems Architect Name Role Phone Maximiliano Hernandez MD Primary Care Provider [phone] Allergies Active Allergy Reactions Criticality Noted Date Comments Bee Pollen 11/16/2023 Oxycodone 11/16/2023 Silver 11/16/2023 Sulfa (Sulfonamide Antibiotics) 11/06 Medications ibuprofen (MOTRIN) 600 mg tablet Take 1 tablet (600 mg total) by mouth every 6 (six) hours as needed. Active multivit-min/selvin orlando fumarate (MULTI VITAMIN ORAL) Take by mouth. Active cyclobenzaprine (FLEXERIL) 5 mg tablet Take 2 tablets (10 mg total) by mouth Three times daily as needed. 03/02/2023 Active FLUoxetine (PROzac) 20 mg capsule Take 1 capsule (20 mg total) by mouth in the morning. 03/02/2023 Active levothyroxine (SYNTHROID, LEVOTHROID) 75 MCG tablet Take 1 tablet (75 mcg total) by mouth in the morning. 03/02/2023 Active omeprazole (PriLOSEC) 40 mg capsuleIndicatio ns:Gastroesophag eal reflux disease, unspecified whether esophagitis present Take 1 capsule (40 mg total) by mouth in the morning. 30 capsule 1 02/01/2024 Active Active Problems No known active problems Family History Medical History Relation Name Comments Cancer Maternal Uncle Relation Name Status Comments Maternal Uncle Social History Tobacco Use Types Packs/Day Years Used Date Smoking Tobacco: Former Cigarettes Smokeless Tobacco: Never Tobacco Cessation:Counseling Given: Not Answered Alcohol Use Standard Drinks/Week Comments Yes 0 [...] Sign Reading Time Taken Comments Blood Pressure 128/80 11/16/2023 12:12 PM EDT Pulse - - Temperature - - Respiratory Rate - - Oxygen Saturation - - Inhaled Oxygen Concentration - - Weight 71.4 kg (157 lb 6.4 oz) 11/16/2023 12:12 PM EDT Height 167.6 cm (5' 6 ) 11/16/2023 12:12 PM EDT Body Mass Index 25.41 11/16/2023 12:12 PM EDT Plan of Treatment Health Maintenance Due Date Last Done Comments Depression Screening 1985 DTaP,Tdap and Td Vaccines (1 - Tdap) 1992 Pap Smear 1994 Zoster (Shingles) Vaccine (1 of 2) 2023 Adult BMI Screening 11/15/2024 11/16/2023 Tobacco Screening 11/15/2024 11/16/2023 Influenza Vaccine 04/08/2025 Colonoscopy 12/06/2033 12/07/2023 Medical Devices Not on file Insurance AET[employer] Care Teams Application Systems Architect Relationship Specialty Start Date End Date Maximiliano Hernandez MD [address] [facility] [address] [place] [phone] PCP - General Internal Medicine 10/26/23
--- OUTSIDE RECORDS SUMMARY | 2025-02-13 15:40 | XMS_ITS | Encounter Summary ---
Author Organization [facility] Address [address] [facility] [place] [address] Care Team Providers Care Floor Worker Transfer [place] Name Role Phone Maximiliano Hernandez MD Primary Care Provider [phone] Encounter Details Date Type Department Care Team (Late st Contact Info) Description 06/08/2023 Abstract [facility] [address] [facility] [address] [place] [address] Maximiliano Hernandez MD [address] [facility] 110 [place], [place] [id number] Social History Tobacco Use Types Packs/Day Years [...] How often do you attend chur or taoism services? More than 4 times per year 02/08/2023 Do you belong to any clubs o r organizations such as mormonism groups, unions, fraternal or athletic groups, or [...] Recorded Patient Health Questionnaire-2 Score 0 02/09/2023 [facility] of Occupat ional Health - Occupational Stress [...] place to sleep or slept in a correction (including now)? No 02/08/2023 Comments Unknown Sex [...] EDT Office Visit [facility] BCP OB [address] [facility] [place] [address] Maia Aguirre PA [address] [facility] [address] [place] [address] documented as of this encounter Visit Diagnoses Not on filedocumented in this encounter Care Teams Floor Worker Transfer [place] Relationship Specialty Start Date End Date Maximiliano Hernandez MD [address] [facility] 110 [place] [address] PCP - General Internal Medicine 02/07/23 documented as of this encounter
--- OUTSIDE RECORDS SUMMARY | 2025-02-13 15:40 | XMS_ITS | Encounter Summary ---
Author Organization [facility] Address [address] [place] [address] Care Team Providers Care Parking Enforcement Specialist Name Role Phone Maximiliano Hernandez MD Primary Care Provider [phone] Encounter Details Date Type Department Care Team (Late st Contact Info) Description 06/08/2023 Clinisync Result Encounter [facility]S External Department Unsolicited Maximiliano Hernandez MD [address] [facility] [address] [place] [address] Social History Tobacco Use Types Packs/Day Years [...] often do you attend chur ch or latter-day services? More than 4 times per year 02/08/2023 Do you belong to any clubs o r organizations such as zoroastrianism groups, unions, fraternal or athletic groups, or [...] Recorded Patient Health Questionnaire-2 Score 0 02/09/2023 [facility] of Occupat ional Health - Occupational Stress [...] EDT Office Visit [facility] BCP OB [address] [facility] [place] [address] Maia Aguirre PA [address] [facility] [address] [place], [place] [address] documented as of this encounter Procedures Procedure Name Priority Date/Time Associated Diagnosis Comments MM TOMOSYNTHESIS SCREENING BI 06/08/2023 1:24 PM EDT documented in this encounter Results * MM TOMOSYNTHESIS SCREENING BI (06/08/2023 1:24 PM EDT) Anatomical Region Laterality Modality Other 06/08/2023 1:24 PM EDT Narrative 06/08/2023 1:24 PM EDT The [address] [address] Mammography Report Signed Patient: TIA FLANAGAN MR#: [id number] : 1975 Acct:[id number] Age/Sex: 48 / F ADM Date: 06/08/23 Loc: MAMMO Attending Dr: MAXIMILIANO HERNANDEZ Ordering Physician: MAXIMILIANO HERNANDEZ Results: Date of Service: 06/08/23 Follow Up: Procedure(s): MM tomosynthesis screening BI Accession Number(s): [id number] cc: MAXIMILIANO HERNANDEZ Patient: TIA FLANAGAN Exam Date: 06/08/2023 : 1975 Gender:F Ordering : DR MAXIMILIANO HERNANDEZ M.D. Admission #: [id number] Family : Order #: [id number] CLICK HERE TO VIEW EXAM RADIOLOGY REPORT PROCEDURE: MM TOMOSYNTHESIS SCREENING BI COMPARISON: MG MAMM SCREEN 3D RITCHIE CAD, 10/31/2020. MG MAMM SCREEN 3D RITCHIE CAD, 11/23/2021. INDICATIONS: Screening Calculator Name NCI Breast Cancer Risk Assessment Tool 5 Year Breast Cancer Risk 1.10% Lifetime Breast Cancer Risk 9.90% Personal Breast Cancer No Personal Ovarian Cancer No Treatments Excision Interferon for year. Family Cancers Mother with skin cancer cancer at age 55; Uncle-maternal with liver cancer at age 65; Grandfather-maternal with lung cancer at age 50; Uncle-maternal with unknown cancer at age 55. LOCATION: The [facility] BREAST COMPOSITION: Scattered areas fibroglandular density. FINDINGS: DIAGNOSTIC CATEGORY 1--NEGATIVE. NO CHANGE FROM COMPARISON ASSESSMENT. Scattered benign-appearing nodules are present. Scattered benign-appearing calcifications are present. Scattered benign-appearing lymph nodes are present. RIGHT BREAST: No significant suspicious finding. LEFT BREAST: No significant suspicious finding. RECOMMENDATIONS: ROUTINE MAMMOGRAM AND CLINICAL EVALUATION IN 12 MONTHS. PLEASE NOTE: A NORMAL MAMMOGRAM DOES NOT EXCLUDE THE POSSIBILITY OF BREAST CANCER. A CLINICALLY SUSPICIOUS PALPABLE LUMP SHOULD BE BIOPSIED. Dictated by: Luis Armijo MD on 06/08/2023 at 13:21 Approved by: Luis Armijo MD on 06/08/2023 at 13:24 Dictated By: Luis Armijo M.D. Signed By: 06/08/23 1325 DD/ 1324 TD/TT: Business Account Manager: Procedure Note Radiology, Radiologist, MD - 06/08/2023 [place] [address] Mammography Report Signed Patient: TIA FLANAGAN#: [id number] : 1975Acct:[id number] Age/Sex: 48 / FADM Date: 06/08/23 Loc: MAMMO Attending Dr: MAXIMILIANO HERNANDEZ Ordering Physician: MAXIMILIANO HERNANDEZResults: Date of Service: 06/08/23Follow Up: Procedure(s): MM tomosynthesis screening BI Accession Number(s): [id number] cc: MAXIMILIANO HERNANDEZ Patient: TIA FLANAGAN. Exam Date: 06/08/2023 : 1975 Gender:F Ordering : DR MAXIMILIANO HERNANDEZ M.D. Admission #: [id number] Family : Order #: [id number] CLICK HERE TO VIEW EXAM RADIOLOGY REPORT PROCEDURE: MM TOMOSYNTHESIS SCREENING BI COMPARISON: MG MAMM SCREEN 3D RITCHIE CAD, 10/31/2020. MG MAMM SCREEN 3DBIL CAD, 11/23/2021. INDICATIONS: Screening Calculator Name NCI Breast Cancer Risk Assessment Tool 5 Year Breast Cancer Risk 1.10% Lifetime Breast Cancer Risk 9.90% Personal Breast Cancer No Personal Ovarian Cancer No Treatments Excision Interferon for year. Family Cancers Mother with skin cancer cancer at age 55;Uncle-maternal with liver cancer at age 65; Grandfather-maternal with lung cancer at age 50; Uncle-maternal with unknown cancer at age 55. LOCATION: The [facility] BREAST COMPOSITION: Scattered areas fibroglandular density. FINDINGS: DIAGNOSTIC CATEGORY 1--NEGATIVE. NO CHANGE FROM COMPARISON ASSESSMENT. Scattered benign-appearing nodules are present. Scatteredbenign-appearing calcifications are present. Scattered benign-appearing lymph nodes are present. RIGHT BREAST: No significant suspicious finding. LEFT BREAST: No significant suspicious finding. RECOMMENDATIONS: ROUTINE MAMMOGRAM AND CLINICAL EVALUATION IN 12 MONTHS. PLEASE NOTE: A NORMAL MAMMOGRAM DOES NOT EXCLUDE THE POSSIBILITY OFBREAST CANCER. A CLINICALLY SUSPICIOUS PALPABLE LUMP SHOULD BE BIOPSIED. Dictated by: Luis Armijo MD on 06/08/2023 at 13:21 Approved by: Luis Armijo MD on 06/08/2023 at 13:24 Dictated By: Luis Armijo M.D. Signed By:06/08/23 1325 DD/ 1324 TD/TT: Business Account Manager: Maximiliano Hernandez MD [facility] Final Result documented in this encounter Visit Diagnoses Not on filedocumented in this encounter Care Teams Parking Enforcement Specialist Relationship Specialty Start Date End Date Maximiliano Hernandez MD [address] [facility] 110 [place] [address] PCP - General Internal Medicine 02/07/23 documented as of this encounter
--- OUTSIDE RECORDS SUMMARY | 2025-02-13 15:40 | XMS_ITS | Encounter Summary ---
Author Organization [facility] Address [address] [facility] [place] [address] Care Team Providers Care Product Developer Name Role Phone Maximiliano Hernandez MD Primary Care Provider [phone] Encounter Details Date Type Department Care Team (Late st Contact Info) Description 02/20/2024 Abstract [facility] CI FM [address] [facility] 110 [place] [address] Maximiliano Hernandez MD [address] [facility] 110 [place], [place] [id number] Social History Tobacco Use Types Packs/Day Years [...] How often do you attend chur or baptism services? More than 4 times per year 02/08/2023 Do you belong to any clubs o r organizations such as druze groups, unions, fraternal or athletic groups, or [...] Recorded Patient Health Questionnaire-2 Score 0 02/09/2023 [facility] of Occupat ional Health - Occupational [...] place to sleep or slept in a jail (including now)? No 02/08/2023 Comments Unknown Sex [...] [address] [facility] [place] [address] Maia Aguirre PA [address] [facility] [place] [address] documented as of this encounter Visit Diagnoses Not on filedocumented in this encounter Care Teams Product Developer Relationship Specialty Start Date End Date Maximiliano Hernandez MD [address] [facility] 110 [place] [address] PCP - General Internal Medicine 02/07/23 documented as of this encounter
--- OUTSIDE RECORDS SUMMARY | 2025-02-13 15:40 | XMS_ITS | Encounter Summary ---
Author Organization [facility] [address] [place] [address] Care Team Providers Care Certified Nurse Name Role Phone Maximiliano Hernandez MD Primary Care Provider [phone] Encounter Details Date Type Department Care Team (Late st Contact Info) Description 02/13/2025 Bamboo flowsheet [facility] [address] [place] [address] Maia Aguirre PA [address] [place] [address] Social History Tobacco Use Types Packs/Day Years [...] often do you attend chur ch or quaker services? More than 4 times per year 02/08/2023 Do you belong to any clubs o r organizations such as adventism groups, unions, fraternal or athletic groups, or [...] Recorded Patient Health Questionnaire-2 Score 0 02/09/2023 [facility] - Occupational Stress Questionnaire Answer Date Recorded [...] place to sleep or slept in a fdc (including now)? No 02/08/2023 Comments Unknown Sex [...] EDT Office Visit [facility] [address] [address] Maia Aguirre PA [address] [place] [address] documented as of this encounter Visit Diagnoses Not on filedocumented in this encounter Care Teams Certified Nurse Relationship Specialty Start Date End Date Maximiliano Hernandez MD [address] [facility] [address] [place] [address] PCP - General Internal Medicine 02/07/23 documented as of this encounter
[2025-02-18 13:08] LABS: Age Gdln ACOG Testing Note (.); IGP, Aptima HPV, rfx 16/18,45 Note (.)
== END 2025-02-13 15:38 | disposition home or self-care (01) ==
LOC: LAB 15:37
PROVIDERS: PCP Internal Medicine; Visit Provider Physician Assistant
DX: Z01.419 Encounter for gynecological examination (general) (routine) without abnormal findings (principal)
CPT/HCPCS: 87624; 88175